=== PATIENT | male | born 1960 | race Caucasian/White ===

== ENCOUNTER → 2018-12-24 | Outpatient (CLI) | payer OTHER | LOC: M WUC 11:55 | PROVIDERS: ATTEND Internal Medicine Gastroenterology | DX: K74.69 Other cirrhosis of liver (principal) ==

== ENCOUNTER → 2019-07-04 | Outpatient (CLI) | payer OTHER ==
[~2019-07-04] MED LIST: GASTROGRAFIN SOLUTION 30ML (Q9963) As Ordered ONE; ISOVUE-370 76% 100ML VIAL (Q9967) As Ordered ONE
--- NOTE | 2019-07-05 04:21 | REP ---
Clinical: Cholecystitis. Technique: Axial contrast enhanced images from the lung bases to the pubic symphysis using oral (per protocol) and 100 ml Isovue 370 intravenous contrast material with precontrast and delayed images of the abdomen as well as coronal and sagittal re-formations. Findings: Large right pleural effusion and partial collapse to the right lower lobe noted. A subtle micronodular contour to the liver suggests cirrhosis along with splenomegaly, mildly prominent lymph nodes in the upper abdomen/jayesh hepatis, and small/moderate amount of ascites primarily along the right paracolic gutter and pelvis. There is a prominent venous plexus noted in the lower abdomen/pelvis which may be related to portosystemic shunting. Pancreas, bilateral adrenal glands, and kidneys are normal. Gallbladder demonstrates cholelithiasis without wall thickening or pericholecystic fluid. Evidence of prior gastric bypass surgery. Small and large bowel without obstruction or acute inflammatory process. Normal terminal ileum and appendix are identified in the right lower quadrant. Pelvis demonstrates collapsed normal bladder and age appropriate prostate/seminal vesicles. Abdominal aorta without aneurysm or dissection. Musculoskeletal structures demonstrate age-related degenerative changes. Impression: 1. Abdominal findings as detailed above suggesting cirrhosis and portal hypertension. 2. Cholelithiasis without evidence for acute cholecystitis. 3. Moderate/large right pleural effusion and partial collapse to the right lower lobe. Electronically Signed by Lee Aquino MD 07/05/2019 04:13 A
== END ==
LOC: M RAD 15:07
PROVIDERS: ATTEND Nurse Practitioner Family
DX: K81.9 Cholecystitis, unspecified (principal)
CPT/HCPCS: 74178; Q9963; Q9967

== ENCOUNTER 2019-07-12 21:33 | Inpatient (IN) | payer OTHER ==
[~2019-07-12] VITALS: Ht 175.3 cm; Wt 86.3 kg
[~2019-07-12 21:33] MED LIST changes: +APIXABAN 5 MG TAB (ELIQUIS) PO SCH; -GASTROGRAFIN SOLUTION 30ML (Q9963) As Ordered ONE; -ISOVUE-370 76% 100ML VIAL (Q9967) As Ordered ONE; +PANTOPRAZOLE 40MG INJ (PROTONIX) (C9113) IV SCH
[2019-07-12] MEDS ORDERED: PANTOPRAZOLE 40MG INJ (PROTONIX) (C9113) IV ONE (22:00)
[2019-07-12] MEDS ORDERED: PROMETHAZINE INJ 25 MG/ML VIAL (J2550) IV ONE (22:00)
[2019-07-12] MEDS ORDERED: MORPHINE 4 MG/ML 1ML VIAL/SYRINGE (J2270) IV ONE (22:00)
[2019-07-12] MEDS ORDERED: ONDANSETRON 4MG/2ML VIAL (J2405) IV ONE (22:00)
[2019-07-12] MEDS ORDERED: NS 1,000 ML IV ONE (22:00)
[2019-07-12] MEDS ORDERED: OMEP-221 PO (22:30)
[2019-07-12] MEDS ORDERED: ATEN25TA PO (22:30)
[2019-07-12] MEDS ORDERED: FURO20TA2 PO (22:30)
[2019-07-12] MEDS ORDERED: SPIR50TA4 PO (22:30)
[2019-07-12] MEDS ORDERED: TRAM50TA2 PO (22:30)
[2019-07-12] MEDS ORDERED: LACT10SO3 PO (22:30)
[2019-07-12] MEDS ORDERED: ELIQ5TAB PO (22:30)
[2019-07-12 22:31] LABS: BASO % 0.8 % (0.0-1.0); EOS # 0.2 10^3/uL (0.0-0.5); EOS % 3.5 % (0.0-3.0); HEMATOCRIT 38.8 % (42.0-52.0); LYMPH # 1.3 10^3/uL (1.5-5.0); LYMPH % 27.7 % (24.0-44.0); MEAN CORPUSCULAR HEMOGLOBIN 30.7 pg (27.0-33.0); MEAN CORPUSCULAR HGB CONC 33.5 g/dl (32.0-36.5); MEAN CORPUSCULAR VOLUME 91.7 fl (80.0-96.0); MONO # 0.1 10^3/uL (0.0-0.8); MONO % 1.9 % (0.0-5.0); NEUTROPHILS # 3.2 10^3/uL (1.5-8.5); NEUTROPHILS % 65.7 % (36.0-66.0); PLATELET COUNT, AUTOMATED 111 10^3/uL (150-450); RED BLOOD COUNT 4.23 10^6/uL (4.30-6.10); WHITE BLOOD COUNT 4.8 10^3/uL (4.0-10.0)
[2019-07-12 23:21] LABS: ALBUMIN 2.6 GM/DL (3.2-5.2); ALT/SGPT 33 U/L (12-78); AMYLASE 429 U/L (25-115); BILIRUBIN,DIRECT 1.4 MG/DL (0.0-0.2); BILIRUBIN,TOTAL 2.4 MG/DL (0.2-1.0); BLOOD UREA NITROGEN 15 MG/DL (7-18); CALCIUM LEVEL 7.9 MG/DL (8.5-10.1); CARBON DIOXIDE LEVEL 20 MEQ/L (21-32); CHLORIDE LEVEL 111 MEQ/L (98-107); CREATININE FOR GFR 0.76 MG/DL (0.70-1.30); GLOMERULAR FILTRATION RATE > 60.0 (>56); GLUCOSE, FASTING 102 MG/DL (70-100); POTASSIUM SERUM 3.8 MEQ/L (3.5-5.1); SODIUM LEVEL 141 MEQ/L (136-145); TOTAL PROTEIN 6.1 GM/DL (6.4-8.2)
[2019-07-12 23:22] LABS: LIPASE 22833 U/L (73-393)
[2019-07-12] MEDS ORDERED: ONDA4TAB6 PO (23:25)
--- NOTE | 2019-07-13 00:01 | REPVR ---
PROCEDURE INFORMATION: Exam: CT Abdomen And Pelvis Without Contrast Exam date and time: 07/12/2019 10:46 PM Age: 58 years old Clinical indication: Abdominal pain; Generalized TECHNIQUE: Imaging protocol: Computed tomography of the abdomen and pelvis without contrast. Radiation optimization: All CT scans at this facility use at least one of these dose optimization techniques: automated exposure control; mA and/or kV adjustment per patient size (includes targeted exams where dose is matched to clinical indication); or iterative reconstruction. COMPARISON: CT ABD PELVIS W/O FOLLOWED BY WITH CONTRAST 07/04/2019 4:48 PM (The report from this study was not available for review at the time of this interpretation.) FINDINGS: Lungs: There is compressive atelectasis in the right lower lobe. Pleural space: There is a moderate to large right pleural effusion, which is similar in size compared to the prior CT on 07/04/2019. Heart: No cardiomegaly. No pericardial effusion. Liver: The liver has a nodular contour, which can be seen with cirrhosis. No liver lesion is seen. No hepatomegaly is noted. Gallbladder and bile ducts: There are gallstones and biliary sludge in the dependent portion of the fundus and body of the distended gallbladder. No gallbladder wall thickening, pericholecystic fluid, or pericholecystic inflammatory changes are identified. No dilation of the intrahepatic or extrahepatic bile ducts is noted. Pancreas: There is fat stranding around the pancreas, which can be seen with acute pancreatitis. No pancreatic mass, cyst, or pseudocyst is noted. Spleen: No splenic lesion is noted. The spleen is enlarged and measures 13.4 cm. Adrenals: There is an 11 mm fat density lesion in the left adrenal gland, which is unchanged compared to the prior CT on 07/04/2019 and compatible with a left adrenal myelolipoma for which follow-up is not necessary. The right adrenal gland is normal. Kidneys and ureters: There is a 14 mm simple cyst in the midpole of the left kidney, which is stable compared to the prior CT on 07/04/2019 and for which follow-up is not necessary. No calculi are seen in the kidneys or ureters. There is no hydronephrosis or hydroureter. Stomach and bowel: Postoperative changes are noted from a Andre-en-Y gastric bypass surgery. There is no evidence for a bowel obstruction, strangulation, diverticulosis, diverticulitis, colitis, pneumatosis intestinalis, intussusception, volvulus, or perforated viscus. Appendix: Normal. No evidence for appendicitis. Intraperitoneal space: There is a small amount of free fluid in the abdomen and a moderate amount of free fluid in the pelvis, which is similar compared to the prior CT on 07/04/2019. No free air. Retroperitoneal space: Unremarkable. No fluid collection. No mass. Vasculature: No abdominal aortic aneurysm. There are mild atherosclerotic calcifications. There is evidence for portal hypertension, with dilation of the main portal vein by 19 mm in diameter and dilation of the splenic vein by 15 mm in diameter. There are numerous mesenteric varices related to a portosystemic collateral pathway from the inferior mesenteric vein to the right external iliac vein. Recanalization of the umbilical vein is noted. Lymph nodes: Normal. No enlarged lymph nodes. Bladder: The partially distended urinary bladder is unremarkable. No stones or masses are seen in the bladder. Reproductive: There is a punctate calcification in the prostate gland. The seminal vesicles are unremarkable. There is a punctate calcification in the right scrotal sac, which represents a scrotolith. Bones/joints: The imaged bony structures are intact. There is no suspicious osteolytic or osteoblastic lesion. There is severe osteoarthritis of the right hip joint and moderate osteoarthritis of the left hip joint, which is similar in appearance compared to the prior CT on 07/04/2019. There are numerous endplate spurs in the lower thoracic spine and lumbar spine. Degenerative changes are present in the lumbar spine. There is ankylosis of the sacroiliac joints. Soft tissues: There is a large indirect right inguinal hernia containing a large amount of fluid and a nondilated loop of ileum, and previously the hernia only contained fluid in the prior CT on 07/04/2019. There is severe bilateral gynecomastia that is similar in appearance compared to the prior CT on 07/04/2019. IMPRESSION: 1. Acute pancreatitis. 2. Cholelithiasis. 3. Large indirect right inguinal hernia containing a large amount of fluid and a loop of ileum, and previously the hernia only contained fluid in the prior CT on 07/04/2019. No bowel obstruction or strangulation. 4. Nodular contour of the liver, which can be seen with cirrhosis. 5. Evidence for portal hypertension, with dilation of the main portal vein and splenic vein, a portosystemic collateral pathway from the inferior mesenteric vein to the right external iliac vein with numerous mesenteric varices, recanalization of the umbilical vein, and splenomegaly, which are similar findings compared to the prior CT on 07/04/2019. 6. Small amount of free fluid in the abdomen and a moderate amount of free fluid in the pelvis, which is similar compared to the prior CT on 07/04/2019. 7. Moderate to large right pleural effusion, which is similar in size compared to the prior CT on 07/04/2019. Electronically signed by: Carlton Mazariegos On 07/13/2019 00:01:10 AM
[2019-07-13] MEDS ORDERED: fentaNYL 100 MCG/2 ML INJECTION (J3010) IV ONE (00:30)
[2019-07-13] MEDS ORDERED: PROMETHAZINE INJ 25 MG/ML VIAL (J2550) IV ONE (00:30)
--- NOTE | 2019-07-13 01:39 | REPVR ---
PROCEDURE INFORMATION: Exam: US Abdomen Limited, Right Upper Quadrant Exam date and time: 07/13/2019 12:52 AM Age: 58 years old Clinical indication: Abdominal pain; Epigastric; Additional info: Gallstones TECHNIQUE: Imaging protocol: Real-time ultrasound of the abdomen with image documentation. Examination was focused on the right upper quadrant. COMPARISON: CT ABD PELVIS W/O CONTRAST 07/12/2019 10:41 PM FINDINGS: Right pleural space: There is a moderate to large right pleural effusion. Liver: The liver is heterogeneous in echotexture and has a nodular contour, which can be seen with cirrhosis. No liver lesion is identified from the images obtained. No hepatomegaly is noted. Gallbladder: There is biliary sludge in the gallbladder. At least one calcified gallstone can be seen in the CT abdomen and pelvis on 07/12/2019. There is thickening of the wall of the gallbladder, which measures 7 mm in thickness. No sonographic Alcaraz's sign was noted by the chief ultrasound technologist. Common bile duct: The common bile duct measures 6 mm in diameter. No stones are seen in the imaged portion of the common bile duct. Pancreas: The pancreas is swollen with thickened echogenic fat around it, indicating inflammatory changes, which are findings compatible with acute pancreatitis. The pancreas was not well visualized secondary to obscuration by gas in the stomach and bowel. Right kidney: The right kidney is normal in appearance and measures 10.9 cm in length. There is no renal cortical thinning. The renal cortical echogenicity is within normal limits. No renal lesion is seen. There is no hydronephrosis. No stones are seen in the renal collecting system. Intraperitoneal space: There is a small amount of free fluid around the liver. IMPRESSION: 1. Cholelithiasis, biliary sludge in the gallbladder, and gallbladder wall thickening, but no sonographic Alcaraz's sign to suggest acute cholecystitis. 2. Acute pancreatitis. 3. Cirrhotic liver. 4. Small amount of free fluid in the abdomen. 5. Moderate to large right pleural effusion. Electronically signed by: Carlton Mazariegos On 07/13/2019 01:38:25 AM
[2019-07-13] MEDS ORDERED: HYDROMORPHONE HCL 0.5 MG/ 0.5 ML SYRINGE (J1170 PER 1) IV PRN (02:15)
[2019-07-13] MEDS ORDERED: ACETAMINOPHEN TAB 650MG DOSE (2X325MG) PO PRN (02:15)
--- NOTE | 2019-07-13 03:10 | HPEPDOC ---
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 Patient reported that he started to experience abdominal pain at 6 PM he noted that he had taken 3 pills of tramadol 50 mg total of 150 mg without any al leviation of his pain. Patient denied any aggravating factors. Patient indicated that his abdominal pain was occurring at the upper portion of his abdomen, radiating to the right/back. . He notes this pain is of 15/10, achy in nature and continuous. He reports that he has experienced nausea and has vomited greater than 10 times while in the emergency room, he shouldnt denies any blood within the vomitus. Patient does report diarrhea. Denies any constipation or dysuria. Patient denies shortness of breath, chest pain or cough but does report a few episodes of palpitations. Denies any fevers but has reported chills. Patient reports that his appetite is poor and has experienced a weight loss; that he attributes to a gastric bypass surgery from 2018 Home Medications Scheduled Apixaban (Eliquis) 5 Mg Tablet, 5 MG PO BID, (Reported) Atenolol (Atenolol) 25 Mg Tablet, 50 MG PO QPM, (Reported) Furosemide (Furosemide) 20 Mg Tablet, 20 MG PO BID, (Reported) Lactulose (Lactulose) 10 Gm/15 Ml Solution, 30 ML PO BID, (Reported) Omeprazole (Omeprazole) 40 Mg Capsule.dr, 40 MG PO BID, (Reported) Spironolactone (Spironolactone) 50 Mg Tablet, 50 MG PO BID, (Reported) Scheduled PRN Ondansetron (Ondansetron Odt) 4 Mg Tab.rapdis, 4 MG PO Q6H PRN for NAUSEA, (Reported) NOT SURE OF DOSE Tramadol HCl (Tramadol HCl) 50 Mg Tablet, 100 MG PO BID PRN for PAIN, (Reported) Allergies Coded Allergies: No Known Allergies (Unverified , 07/12/19) Past Medical History Medical History 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 Review of Systems Other systems 10 point review of systems complete, all negative otherwise stated in HPI Vital Signs - Vitals: BP 117/71, HR 71, RR 16, Sat 98%RA, Temp 97.2F - General: Lying in bed, No acute distress, Speaking in full sentences, AAOx3 - HEENT: NC, AT, PERRLA, EOMI - CVS: RRR, +S1S2 - Lungs: Decreased breath sounds at right lung base, No wheezing / rales / rhonc hi - Abdomen: Soft, Non-distended, tenderness appreciated at epigastrium, no rebound or guarding - Extremities: No lower extremity edema, No calf tenderness - Neuro: No focal motor or sensory deficit - Skin: No visible rashes Laboratory Data Labs 24H Laboratory Tests 2 07/12/19 22:20: Immature Granulocyte % (Auto) 0.4, Neutrophils (%) (Auto) 65.7, Lymphocytes (%) (Auto) 27.7, Monocytes (%) (Auto) 1.9, Eosinophils (%) (Auto) 3.5H, Basophils ( %) (Auto) 0.8, Neutrophils # (Auto) 3.2, Lymphocytes # (Auto) 1.3L, Monocytes # (Auto) 0.1, Eosinophils # (Auto) 0.2, Basophils # (Auto) 0.0, Nucleated Red Blood Cells % (auto) 0.0, Urine Color SYMONE, Urine Appearance CLOUDYH, Urine pH 5.0, Urine Specific Penrose 1.017, Urine Protein NEGATIVE, Urine Glucose (UA) NEGATIVE, Urine Ketones NEGATIVE, Urine Blood NEGATIVE, Urine Nitrite NEGATIVE, Urine Bilirubin NEGATIVE, Urine Urobilinogen 4.0H, Urine Leukocyte Esterase NEGATIVE, Urine WBC (Auto) 5H, Urine RBC (Auto) 7H, Urine Hyaline Casts (Auto) 36, Urine Bacteria (Auto) NEGATIVE, Urine Squamous Epithelial Cells 0, Urine Calcium Oxalate Cryst (Auto) LARGE, Urine Mucus (Auto) LARGE, Urine Sperm (Auto) , Anion Gap 10, Glomerular Filtration Rate > 60.0, Calcium Level 7.9L, Total Bilirubin 2.4H, Direct Bilirubin 1.4H, Aspartate Amino Transf (AST/SGOT) 83H, Alanine Aminotransferase (ALT/SGPT) 33, Alkaline Phosphatase 120H, Total Protein 6.1L, Albumin 2.6L, Albumin/Globulin Ratio 0.74L, Amylase Level 429H, Lipase [id number] 07/13/19 01:01: Lactic Acid Level 1.8 CBC/BMP Laboratory Tests 07/12/19 22:20 Plan / VTE VTE Prophylaxis Ordered?: Yes Plan Plan Abdominal pain - likely 2/2 acute pancreatitis - possibly 2/2 gallstone pancreatitis - Presented to the ER with complaints of abdominal pain associated with nausea and vomiting - Physical reveals epigastric tenderness / remains hemodynamically stable and afebrile - Significant elevation of lipase, no lactic acidosis. No leukocytosis - CT abdomen / pelvis 07/13: 1. Acute pancreatitis. 2. Cholelithiasis. 3. Large indirect right inguinal hernia containing a large amount of fluid and a loop of ileum, and previously the hernia only contained fluid in the prior CT on 07/04/2019. No bowel obstruction or strangulation. 4. Nodular contour of the liver, which can be seen with cirrhosis. 5. Evidence for portal hypertension, with dilation of the main portal vein and splenic vein, a portosystemic collateral pathway from the inferior mesenteric vein to the right external iliac vein with numerous mesenteric varices, recanalization of the umbilical vein, and splenomegaly, which are similar findings compared to the prior CT on 07/04/2019. 6. Small amount of free fluid in the abdomen and a moderate amount of free fluid in the pelvis, which is similar compared to the prior CT on 07/04/2019. 7. Moderate to large right pleural effusion, which is similar in size compared to the prior CT on 07/04/2019. - US abdomen 07/13: 1. Cholelithiasis, biliary sludge in the gallbladder, and gallbladder wall thickening, but no sonographic Alcaraz's sign to suggest acute cholecystitis. 2. Acute pancreatitis. 3. Cirrhotic liver. 4. Small amount of free fluid in the abdomen. 5. Moderate to large right pleural effusion. - Case was discussed with Dr. Lagunas; family educator at [facility]; was advised that an ERCP is not required at this time, however, has reported that he will gladly take the patient on transfer if required - Will check triglycerides levels - Will continue with IV fluid hydration and symptomatic control with Dilaudid and Zofran - Will keep patient NPO Moderate to large right-sided pleural effusion - Currently, patient is not short of breath - Saturating well on room air - Imaging findings noted above - Has reported history of fluid removal via thoracentesis 3 - At this point diuretic therapy will be held and fluids will be instituted because of acute pancreatitis - Patient is at high risk for further propagation of effusions - Will monitor in progressive care unit 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 - Will be evaluated by [facility] for liver transplant - Hx of gallbladder sludge; was advised that he needs to have Ascites - Present on imaging noted above - Will hold diuretics; Furosemide and Spironolactone - Patient is at high risk for further propagation of effusions - Will need to have repeat imaging completed SVT - Currently heart rate remains well-controlled - c/w Atenolol with holding parameters (re: possible thoracentesis / paracentesis) Hx of PE - Patient was reported have a pulmonary embolism on 09/2018 - Will hold Eliquis at this time Gastric ulcers - Will stop omeprazole and start Protonix IV DVT prophylaxis - Will hold Eliquis at this time (re: possible thoracentesis / paracentesis) AMBER CARTAGENA MD Jul 13, 2019 03:10
[2019-07-13] MEDS: atenoloL 25 MG TAB PO SCH ×2 (03:12→20:35)
[2019-07-13] MEDS: LR 1,000 ML IV SCH ×3 (03:15→15:35)
[2019-07-13] MEDS: LACTULOSE 20 GM/30 ML SYRUP UD PO SCH ×3 (07:09→20:35)
[2019-07-13] MEDS: HEPARIN SOD (PORCINE) 5000 UNITS/ML VIAL SQ SCH ×3 (07:09→20:35)
[2019-07-13 07:44] LABS: ALBUMIN 2.4 GM/DL (3.2-5.2); ALT/SGPT 49 U/L (12-78); BILIRUBIN,TOTAL 2.5 MG/DL (0.2-1.0); BLOOD UREA NITROGEN 17 MG/DL (7-18); CALCIUM LEVEL 8.1 MG/DL (8.5-10.1); CARBON DIOXIDE LEVEL 21 MEQ/L (21-32); CHLORIDE LEVEL 110 MEQ/L (98-107); CHOLESTEROL LEVEL 106 MG/DL (<200); CHOLESTEROL RISK RATIO 2.038 (<5); CREATININE FOR GFR 0.89 MG/DL (0.70-1.30); GLOMERULAR FILTRATION RATE > 60.0 (>56); GLUCOSE, FASTING 105 MG/DL (70-100); HDL CHOLESTEROL 52 MG/DL (>40); LDL CHOLESTEROL 44 MG/DL (<100); NON-HDL-C 54 MG/DL; POTASSIUM SERUM 3.8 MEQ/L (3.5-5.1); SODIUM LEVEL 140 MEQ/L (136-145); TRIGLYCERIDES LEVEL 52 MG/DL (<150)
--- NOTE | 2019-07-13 07:51 | REPVR ---
PROCEDURE INFORMATION: Exam: MR Abdomen Without Contrast, MRCP. Exam date and time: 07/13/2019 6:40 AM Age: 58 years old Clinical indication: Abdominal pain; Acute; Prior surgery; Surgery date: 6+ months; Surgery type: Gastric bypass; Patient HX: Best imagews possible attempted 3 times with 3d images, PT states pain and vomiting started 5pm last night; Additional info: Gb sludge mrcp TECHNIQUE: Imaging protocol: MR of the abdomen without contrast. 3D rendering: MIP and/or 3D reconstructed images were created by the technologist. COMPARISON: US Abdomen 07/13/2019 12:[address] ABD PELVIS W/O CONTRAST 07/12/2019 10:41:41 PM FINDINGS: Limitations: The examination is technically limited despite multiple attempts, as noted by the technologist. Pleura: A right pleural effusion is again seen. Liver: The liver is small with a nodular surface consistent with cirrhosis. Gallbladder and bile ducts: The gallbladder is distended. The wall appears slightly thickened diffuse There are dependent stones and sludge in the body and neck of the gallbladder. There is no significant intrahepatic or extrahepatic biliary ductal dilation. Assessment of the common bile duct is limited and small stones or lesions could be missed, but no choledocholithiasis is identified. There is a small amount of fluid around the gallbladder, but it is not isolated to this location. Pancreas: The pancreas appears grossly unremarkable but was not well assessed. No gross pancreatic ductal dilation identified. Spleen: The spleen is mildly enlarged measuring 15.7 x 13.6 cm. Kidneys and ureters: There is an 11 mm cyst in the left midpole and a 10 mm cyst in the right kidney midpole. No follow-up needed. No hydronephrosis. Intraperitoneal space: There is moderate ascites. There is edema of the omentum and the mesentery. IMPRESSION: 1. Limited examination. 2. Distended gallbladder with slight wall thickening, layering stones and sludge and pericholecystic fluid but the fluid is not isolated to this area and may be related to the chronic liver disease. 3. No biliary ductal dilation identified. No choledocholithiasis is seen, but assessment of the nondilated duct is limited and small filling defects could be missed. 4. Cirrhotic liver, splenomegaly, ascites, right pleural effusion and edema within the mesentery and omentum as seen on the prior exams. COMMENT: Consistent with the [employer]'s Incidental Findings Committee Report (J Am Yazmin Radiol 2010): Unless the patient's specific circumstances suggest otherwise, any liver lesion 0.5 cm or less, any cystic kidney lesion less than 1.0 cm, and/or any adrenal lesion 1.0 cm or less not otherwise characterized in this report as possessing suspicious or indeterminate imaging features is/are highly likely to be benign and do not require follow-up imaging or biopsy. Electronically signed by: Desiree Stone On 07/13/2019 07:51:28 AM
[2019-07-13] MEDS ORDERED: METAL LOCK LOOP XX ONE (08:31)
[2019-07-13 09:16] LABS: BILIRUBIN,DIRECT 1.4 MG/DL (0.0-0.2); LIPASE 4495 U/L (73-393)
[2019-07-13] MEDS: PANTOPRAZOLE 40MG INJ (PROTONIX) (C9113) IV SCH ×2 (09:28→20:34)
[2019-07-13] MEDS: cefTRIAXone SOD 1 GM in D5W MINI-BAG PLUS 50 ML IV SCH (09:29)
[2019-07-13 10:15] VITALS: BP 115/71; O2SAT 96
[2019-07-13] MEDS: HYDROMORPHONE HCL 0.5 MG/ 0.5 ML SYRINGE (J1170 PER 1) IV PRN ×3 (10:31→23:24)
[2019-07-13 14:00] VITALS: BP 103/59
--- NOTE | 2019-07-13 18:41 | IPNPDOC ---
Date Seen The patient was seen on 07/13/19. Progress Note SUBJECTIVE: Aron was seen and examined this morning while lying in bed in the emergency department. Patient reports his left upper abdominal and left flank pain radiating to the back is still present and is 8 out of 10. His pain is moderately decreased from presentation yesterday evening. He endorses feeling thirsty and denies having much of an appetite at this time. Patient's last bowel movement was yesterday evening around 9:30 PM. Patient is using a bedside urinal and is producing dark nimesh urine. Patient is NPO at time of exam. Patient denies feeling nauseated at this time and last vomited yesterday evening. Patient denies fever, chills, night sweats, headache, lightheadedness, chest pain or pressure, palpitations, or shortness of breath at this time. OBJECTIVE PHYSICAL EXAMINATION: VITAL SIGNS: Please see below. GENERAL: male lying on his right side in bed at time of exam. He appears to be in some moderate discomfort but does not appear to be in any acute distress. Well-developed and well-nourished. Alert and oriented 3. HEENT: Normocephalic, atraumatic. Anicteric and noninjected sclera. No conjunctival pallor. Neck is supple with no anterior or posterior cervical lymphadenopathy, nor any supraclavicular lymphadenopathy. Trachea is midline. CARDIOVASCULAR: Regular rate and regular rhythm. S1, S2 auscultated. No murmurs appreciated. RESPIRATORY: No wheezes, crackles, or rhonchi appreciated. There is mildly diminished tidal volume with decreased breath sounds in the right lung base. Symmetric chest expansion. Patient is speaking in full sentences and breathing on room air. ABDOMINAL: Soft, nondistended. Diffuse tenderness throughout the abdomen that is most pronounced in the epigastrium and left upper quadrant. Left flank and left CVA tenderness. No guarding or rigidity appreciated. EXTREMITIES: No lower extremity edema. 2+ radial and posterior tibial pulses bilaterally. NEUROLOGICAL: Awake, alert and oriented 3. No focal neurologic deficits appreciated. Spine he appropriately to questions and commands. PSYCHOLOGICAL: Mood and affect appear appropriate LABORATORY DATA, IMAGING STUDIES, MICROBIOLOGY: Please see below. 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 In the ED, extensive imaging (right upper quadrant ultrasound, CT abdomen/pelvis, and abdominal MRI) showed acute pancreatitis, cholelithiasis, biliary sludge in gallbladder, thickened gallbladder wall, cirrhotic liver, indirect right inguinal hernia with large amount of fluid and loop of ileum, moderate to large right pleural effusion, small amount of abdominal and pelvic free fluid, with evidence of portal hypertension. No choledocholithiasis and no biliary ductal dilation was visualized. Initial serum lipase was 23,000, with elevated total and direct bilirubin. Lactated Ringer's were started and IV Rocephin was added morning of 07/13 to cover for possible SBP. Patient's pain improved moderately on 07/13, and clear liquid diet started. #Gallstone pancreatitis -Pain improved from yesterday and clear liquid diet started -IV Dilaudid for pain -IV Rocephin added to empirically cover for possible SBP -Patient has had gallstone pancreatitis in the past and is at significant risk for recurrence until gallbladder is removed. It is likely best to do elective cholecystectomy as outpatient once symptoms have improved. This was explained extensively to patient and he verbally acknowledged understanding it. Patient would like to follow-up with surgeon in [place] whom he's been seeing for elective cholecystectomy workup. 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 #SVT -On remote telemetry -Rate is well controlled -Atenolol ordered with holding parameters #h/o PE -Patient reports PE in September 2018 -Currently on subcutaneous heparin -Asymptomatic at this time from a respiratory standpoint #h/o Gastric Ulcers: IV Protonix #DVT prophylaxis: SC Heparin DISPOSITION: Pending improved pain control and tolerance of diet advancement. VS, I&O, 24H, Fishbone Vital Signs/I&O Vital Signs Date Time Temp Pulse Resp B/P (MAP) Pulse Ox O2 Delivery O2 Flow Rate FiO2 07/13/19 17:34 18 07/13/19 14:00 98.0 64 103/59 (74) 97 Room Air Laboratory Data 24H LABS Laboratory Tests 2 07/12/19 22:20: Immature Granulocyte % (Auto) 0.4, Neutrophils (%) (Auto) 65.7, Lymphocytes (%) (Auto) 27.7, Monocytes (%) (Auto) 1.9, Eosinophils (%) (Auto) 3.5H, Basophils (%) (Auto) 0.8, Neutrophils # (Auto) 3.2, Lymphocytes # (Auto) 1.3L, Monocytes # (Auto) 0.1, Eosinophils # (Auto) 0.2, Basophils # (Auto) 0.0, Nucleated Red Blood Cells % (auto) 0.0, Urine Color NIMESH, Urine Appearance CLOUDYH, Urine pH 5.0, Urine Specific [place] 1.017, Urine Protein NEGATIVE, Urine Glucose (UA) NEGATIVE, Urine Ketones NEGATIVE, Urine Blood NEGATIVE, Urine Nitrite NEGATIVE, Urine Bilirubin NEGATIVE, Urine Urobilinogen 4.0H, Urine Leukocyte Esterase NEGATIVE, Urine WBC (Auto) 5H, Urine RBC (Auto) 7H, Urine Hyaline Casts (Auto) 36, Urine Bacteria (Auto) NEGATIVE, Urine Squamous Epithelial Cells 0, Urine Calcium Oxalate Cryst (Auto) LARGE, Urine Mucus (Auto) LARGE, Urine Sperm (Auto) , Anion Gap 10, Glomerular Filtration Rate > 60.0, Calcium Level 7.9L, Total B ilirubin 2.4H, Direct Bilirubin 1.4H, Aspartate Amino Transf (AST/SGOT) 83H, Alanine Aminotransferase (ALT/SGPT) 33, Alkaline Phosphatase 120H, Total Protein 6.1L, Albumin 2.6L, Albumin/Globulin Ratio 0.74L, Amylase Level 429H, Lipase 08090D 07/13/19 01:01: Lactic Acid Level 1.8 07/13/19 06:55: Anion Gap 9, Glomerular Filtration Rate > 60.0, Calcium Level 8.1L, Total Bilirubin 2.5H, Direct Bilirubin 1.4H, Aspartate Amino Transf (AST/SGOT) 104H, Alanine Aminotransferase (ALT/SGPT) 49, Alkaline Phosphatase 116, Total Protein 6.0L, Albumin 2.4L, Albumin/Globulin Ratio 0.67L, Lipase 4495H, Triglycerides Level 52, Total Cholesterol 106, LDL Cholesterol 44, Non-HDL Cholesterol (LDL + VLDL) 54, Total HDL Cholesterol 52, Cholesterol/HDL Ratio 2.038, Procalcitonin 16.51 CBC/BMP Laboratory Tests 07/12/19 22:20 07/13/19 06:55 DANNY PENA D.O. Jul 13, 2019 18:40
[2019-07-13 22:00] VITALS: BP 100/46; O2SAT 95
[2019-07-13] MEDS: MAG SULF 1GM/100ML (MAG RUN) 1 GM in IV 1 EA IV SCH ×2 (22:50→23:54)
[2019-07-14] MEDS: ONDANSETRON 4MG/2ML VIAL (J2405) IV PRN ×2 (01:05→13:51)
[2019-07-14] MEDS: LR 1,000 ML IV SCH ×2 (05:26→19:25)
[2019-07-14] MEDS: HYDROMORPHONE HCL 0.5 MG/ 0.5 ML SYRINGE (J1170 PER 1) IV PRN ×2 (05:26→13:51)
[2019-07-14] MEDS: LACTULOSE 20 GM/30 ML SYRUP UD PO SCH ×3 (05:33→20:31)
[2019-07-14] MEDS: HEPARIN SOD (PORCINE) 5000 UNITS/ML VIAL SQ SCH (05:34)
[2019-07-14 06:00] VITALS: BP 95/48
[2019-07-14 06:22] LABS: BASO # 0.1 10^3/uL (0.0-0.2); BASO % 0.9 % (0.0-1.0); EOS # 0.1 10^3/uL (0.0-0.5); EOS % 2.6 % (0.0-3.0); HEMATOCRIT 29.1 % (42.0-52.0); MEAN CORPUSCULAR HEMOGLOBIN 31.8 pg (27.0-33.0); MEAN CORPUSCULAR HGB CONC 34.4 g/dl (32.0-36.5); MEAN CORPUSCULAR VOLUME 92.7 fl (80.0-96.0); MONO # 0.6 10^3/uL (0.0-0.8); MONO % 10.6 % (0.0-5.0); NEUTROPHILS # 3.7 10^3/uL (1.5-8.5); NEUTROPHILS % 67.5 % (36.0-66.0); RED BLOOD COUNT 3.14 10^6/uL (4.30-6.10); WHITE BLOOD COUNT 5.5 10^3/uL (4.0-10.0)
[2019-07-14 06:46] LABS: ALBUMIN 1.9 GM/DL (3.2-5.2); ALT/SGPT 30 U/L (12-78); BILIRUBIN,TOTAL 1.3 MG/DL (0.2-1.0); BLOOD UREA NITROGEN 17 MG/DL (7-18); CALCIUM LEVEL 7.3 MG/DL (8.5-10.1); CARBON DIOXIDE LEVEL 24 MEQ/L (21-32); CHLORIDE LEVEL 111 MEQ/L (98-107); CREATININE FOR GFR 0.61 MG/DL (0.70-1.30); GLOMERULAR FILTRATION RATE > 60.0 (>56); GLUCOSE, FASTING 71 MG/DL (70-100); LIPASE 1414 U/L (73-393); MAGNESIUM LEVEL 2.1 MG/DL (1.8-2.4); POTASSIUM SERUM 3.5 MEQ/L (3.5-5.1); SODIUM LEVEL 140 MEQ/L (136-145); TOTAL PROTEIN 4.9 GM/DL (6.4-8.2)
[2019-07-14 07:01] LABS: PLATELET COUNT, AUTOMATED 62 10^3/uL (150-450)
[2019-07-14] MEDS: cefTRIAXone SOD 1 GM in D5W MINI-BAG PLUS 50 ML IV SCH (09:32)
[2019-07-14] MEDS: PANTOPRAZOLE 40MG INJ (PROTONIX) (C9113) IV SCH (09:32)
[2019-07-14] MEDS ORDERED: IBUPROFEN 600 MG TAB PO PRN (13:45)
[2019-07-14 14:00] VITALS: BP 98/56
[2019-07-14] MEDS ORDERED: ONDANSETRON 4 MG TAB (S0181) PO PRN (14:00)
--- NOTE | 2019-07-14 15:21 | IPNPDOC ---
Text Note Date of Service The patient was seen on 07/14/19. NOTE TIME OF SERVICE 9:20 AM Mr. 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 SUBJECTIVE: The patient tolerated clear liquids for breakfast but continues to have nausea and 4 out of 10 abdominal pain after eating. He reports having history of anemia and reports that he was told this is because he doesn't eat enough protein. He was also aware of his history of thrombocytopenia and reports that he was told was due to his liver cirrhosis. OBJECTIVE: Temperature 97.1, pulse 58, respiratory rate 16, blood pressure 98/56, pulse oximetry 97% on room air GEN: well-nourished / well developed/ NAD HEENT: NCAT / lips acyanotic /mucus membranes moist and pink CVS: RRR/NMRG LUNGS: lungs are clear to auscultation bilaterally on room air MSK/EXTREMITIES: range of motion intact in all 4 extremities NEURO: CN 2-12 are grossly intact / speech is not dysarthric PSYCH: alert and oriented to person place and time/ able to understand and follow all commands WBC 5.5, hemoglobin 10, platelets 62. Sodium 140, potassium 3.5, chloride 111, carbon dioxide 24, BUN 17, creatinine 0.61, GFR 60, glucose 71, total bilirubin 1.3, AST 55, ALT 30, alkaline phosphatase 79 ASSESSMENT & PLAN: 1. Recurrent gallstone pancreatitis.-Improving The patient continues to have abdominal pain and nausea after eating a regular diet The diagnosis was made based on the presence of lipase more than 3 times upper limit of normal and abdominal pain and CT scan findings. Reports from CT of the abdomen and MRI of the abdomen reviewed. Plan: Continue with IV fluids/advance diet as tolerated/switch from IV to by mouth, Zofran/continue with IV Dilaudid 2. Bicytopenia The patient reports that anemia is due to not eating enough protein. He reports a thrombocytopenia is due to liver cirrhosis The patient is aware of both of these diagnosis and reports recently having a colonoscopy done by Dr.Nizan his HORN at [facility] Plan: Stop heparin follow-up CBC in the morning / monitor for bleeding / Because he has a history of bariatric surgery he is at risk of anemia 2/2 malnutrition therefore we will follow-up iron studies, B12, zinc and folate & encourage him to f/u his Bariatric Surgeon on an out pt basis 3. 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 History of PE Elquis was held on admission. He is DVT prophylaxis dose rather than treatment dose heparin Plan: DC heparin because of drop in platelets, follow-up stool occult to rule out GI bleed prior to resuming enoxaparin 5. History of gastric ulcers. Is unclear whether he is having an active lower GI bleed Plan: Switch from IV to by mouth PPI/ follow-up stool occult DVT PX SCDs because of acute anemia DISPO pending clinical course, if the patient does not improve within the next day so we may transfer him to [facility] where his primary grounding engineer works Pratibha MEYERS, I+O VSPratibha I+O Laboratory Tests 07/14/19 05:33 07/14/19 08:28 Vital Signs Date Time Temp Pulse Resp B/P (MAP) Pulse Ox O2 Delivery O2 Flow Rate FiO2 07/14/19 14:01 16 07/14/19 14:00 97.1 58 98/56 (70) 97 Room Air I&O- Last 24 Hours up to 6 AM 07/14/19 06:00 Intake Total 3795 ml Output Total 475 ml Balance 3320 ml SAUD BLANK MD Jul 14, 2019 15:21
[2019-07-14] MEDS: PANTOPRAZOLE 40MG TAB (PROTONIX) PO SCH (20:31)
[2019-07-14 20:35] VITALS: BP 120/62
[2019-07-14] MEDS: atenoloL 25 MG TAB PO SCH (20:35)
[2019-07-14] MEDS ORDERED: APIXABAN 2.5 MG TAB (ELIQUIS) PO SCH (21:00)
[2019-07-14 22:00] VITALS: BP 119/69
[2019-07-15] MEDS: HYDROMORPHONE HCL 0.5 MG/ 0.5 ML SYRINGE (J1170 PER 1) IV PRN (03:34)
[2019-07-15] MEDS: LACTULOSE 20 GM/30 ML SYRUP UD PO SCH ×2 (05:12→13:23)
[2019-07-15] MEDS: LR 1,000 ML IV SCH (05:12)
[2019-07-15 05:53] LABS: BASO % 0.9 % (0.0-1.0); EOS # 0.2 10^3/uL (0.0-0.5); EOS % 4.6 % (0.0-3.0); HEMATOCRIT 32.6 % (42.0-52.0); HEMOGLOBIN 10.7 g/dl (13.5-17.5); LYMPH # 0.9 10^3/uL (1.5-5.0); LYMPH % 25.8 % (24.0-44.0); MEAN CORPUSCULAR HEMOGLOBIN 30.8 pg (27.0-33.0); MEAN CORPUSCULAR HGB CONC 32.8 g/dl (32.0-36.5); MEAN CORPUSCULAR VOLUME 93.9 fl (80.0-96.0); MONO # 0.4 10^3/uL (0.0-0.8); MONO % 11.2 % (0.0-5.0); NEUTROPHILS # 1.9 10^3/uL (1.5-8.5); NEUTROPHILS % 57.2 % (36.0-66.0); RED BLOOD COUNT 3.47 10^6/uL (4.30-6.10); WHITE BLOOD COUNT 3.3 10^3/uL (4.0-10.0)
[2019-07-15 05:55] LABS: PLATELET COUNT, AUTOMATED 61 10^3/uL (150-450)
[2019-07-15 06:00] VITALS: BP 90/45
[2019-07-15 06:31] LABS: ALBUMIN 2.1 GM/DL (3.2-5.2); ALT/SGPT 27 U/L (12-78); BILIRUBIN,TOTAL 0.8 MG/DL (0.2-1.0); BLOOD UREA NITROGEN 13 MG/DL (7-18); CALCIUM LEVEL 7.6 MG/DL (8.5-10.1); CARBON DIOXIDE LEVEL 27 MEQ/L (21-32); CHLORIDE LEVEL 113 MEQ/L (98-107); CREATININE FOR GFR 0.57 MG/DL (0.70-1.30); FERRITIN 696 NG/ML (26-388); GLOMERULAR FILTRATION RATE > 60.0 (>56); GLUCOSE, FASTING 72 MG/DL (70-100); IRON (FE) 50 UG/DL (65-175); MAGNESIUM LEVEL 1.9 MG/DL (1.8-2.4); PERCENT SATURATION 38.8 % (19.7-50.0); POTASSIUM SERUM 4.2 MEQ/L (3.5-5.1); SODIUM LEVEL 143 MEQ/L (136-145); TOTAL IRON BINDING CAPACITY 129 UG/DL (250-450)
[2019-07-15 08:24] VITALS: BP 106/60
[2019-07-15] MEDS: cefTRIAXone SOD 1 GM in D5W MINI-BAG PLUS 50 ML IV SCH (09:07)
[2019-07-15] MEDS: PANTOPRAZOLE 40MG TAB (PROTONIX) PO SCH (09:08)
[2019-07-15 09:20] VITALS: BP 106/60
[2019-07-15] MEDS ORDERED: traMADol 50 MG TAB PO SCH (10:15)
[2019-07-15 10:45] LABS: FOLATE 7.7 NG/ML; VITAMIN B12 LEVEL 905 PG/ML
[2019-07-15 14:03] VITALS: BP 106/61
[2019-07-15 14:05] VITALS: BP 106/61
[2019-07-15] MEDS ORDERED: ACET1TAB55 PO (15:03)
[2019-07-15] MEDS ORDERED: TRAM1CAP15 PO (15:03)
--- NOTE | 2019-07-15 17:41 | DS.PDOC ---
Discharge Summary General Date of Admission Jul 13, 2019 at 02:06 Date of Discharge 07/15/2019 Attending Physician: SAUD BLANK MD Discharge Summary PROCEDURES PERFORMED DURING STAY: None ADMITTING DIAGNOSES: Abdominal pain secondary to acute gallstone pancreatitis Right-sided pleural effusion Cirrhosis secondary to SWIFT Ascites History pulmonary embolism SVT History of gastric ulcers DISCHARGE DIAGNOSES: Recurrent gallstone pancreatitis Bicytopenia (anemia, thrombocytopenia) Liver cirrhosis secondary to Swift complicated by bicytopenia and ascites History of pulmonary embolism History of gastric ulcers COMPLICATIONS/CHIEF COMPLAINT: Gallstone Pancreatitis. HISTORY OF PRESENT ILLNESS & HOSPITAL COURSE: Aron is a 58-year-old male with past medical history of liver cirrhosis secondary to SWIFT, history of ascites and gallbladder sludge, history of pulmonary embolus (on Eliquis), history of recurrent right-sided pleural effusions, SVT, and gastric ulcers who presented the emergency department with the chief complaint of severely intense abdominal pain. He began to experience the pain late in the afternoon on the day he presented. He has home tramadol prescription for Zyrtec. Current gallstone parotitis and associated abdominal pain. He tried 3 of the tramadol pills, 50 mg each (total of 150 mg), but these did not alleviate his pain. The pain was mostly centered to the upper portion of his abdomen and radiated to his back. He described the pain as being 15/10, continuous and very achy. No specific factors seem to aggravate the pain. He had accompanying symptoms of nausea and vomiting. He reports vomiting more than 10 times while in the emergency department, but denied any hematemesis, or coffee ground emesis. He denied any diarrhea, constipation or dysuria. He also denied chest pain, chest pressure, cough, shortness of breath, but did endorse a few intermittent episodes of palpitations. Patient denied any fever or chills. He states that his appetite is poor and he is experienced a recent weight loss but did undergo gastric bypass surgery in 2018. In the emergency department, extensive imaging (right upper quadrant ultrasound, CT abdomen/pelvis, and abdominal MRI." He showed acute pancreatitis, cholelithiasis, but biliary sludge in gallbladder, thickened gallbladder wall, cirrhotic liver, indirect right inguinal hernia with large amount of fluid and loop of ileum, moderate to large right pleural effusion, small amount of abdominal pelvic free fluid, with evidence of portal hypertension. No choledocholithiasis and no biliary duct dilation was visualized. Initial serum lipase is 23,000, with elevated total and direct bilirubin. Lactated Ringer's were started to assist in fluid replenishment in the context of abdominal edema, ascites, and third spacing. IV Rocephin was added on the morning of 07/13 and comfortable. Possible SBP. Patient's pain improved moderately and 07/13, and clear liquid diet was started. Patient tolerated clear liquid diet well and subsequently advanced to a soft diet. His abdominal pain and discomfort decrease any stay this hospital stay. On the morning of 07/15, patient's IV medications were stopped and he was switched to oral pain medications. He tolerated both breakfast and lunch on 07/15 while taking the oral pain medications. He had no associated pain or discomfort while eating on 07/15 and was deemed medically optimized for discharge. DISCHARGE MEDICATIONS: Please see below. ALLERGIES: Please see below. PHYSICAL EXAMINATION ON DISCHARGE: VITAL SIGNS: Please see below. GENERAL: Pleasant male lying comfortably in bed. He does not appear to be in the discomfort experienced on previous days, and does not appear to be in any acute distress. Well-developed and well-nourished. Alert and oriented 3. HEENT: Normocephalic, atraumatic. Anicteric and noninjected sclera. No conjunct ival pallor. Neck is supple with no anterior or posterior cervical lymphadenopathy, nor any supraclavicular lymphadenopathy. Trachea is midline. CARDIOVASCULAR: Regular rate and regular rhythm. S1, S2 auscultated. No murmurs appreciated. RESPIRATORY: No wheezes, crackles, or rhonchi appreciated. There is mildly diminished tidal volume with mildly decreased breath sounds in the right lung base. Symmetric chest expansion. Patient is speaking in full sentences and breathing on room air. ABDOMINAL: Soft, nondistended. Very mild abdominal tenderness of the left upper quadrant that is significantly reduced from previous days. No guarding or rigidity appreciated., Normoactive bowel sounds EXTREMITIES: No lower extremity edema. 2+ radial and posterior tibial pulses bilaterally. NEUROLOGICAL: Awake, alert and oriented 3. No focal neurologic deficits appreciated. Spine he appropriately to questions and commands. PSYCHOLOGICAL: Mood and affect appear appropriate LABORATORY DATA: Please see below. IMAGING: CT abdomen/pelvis without contrast, 07/12/19: 1. Acute pancreatitis. 2. Cholelithiasis. 3. Large indirect right inguinal hernia containing a large amount of fluid and a loop of ileum, and previously the hernia only contained fluid in the prior CT on 07/04/2019. No bowel obstruction or strangulation. 4. Nodular contour of the liver, which can be seen with cirrhosis. 5. Evidence for portal hypertension, with dilation of the main portal vein and splenic vein, a portosystemic collateral pathway from the inferior mesenteric vein to the right external iliac vein with numerous mesenteric varices, recanalization of the umbilical vein, and splenomegaly, which are similar findings compared to the prior CT on 07/04/2019. 6. Small amount of free fluid in the abdomen and a moderate amount of free fluid in the pelvis, which is similar compared to the prior CT on 07/04/2019. 7. Moderate to large right pleural effusion, which is similar in size compared to the prior CT on 07/04/2019. Abdomen ultrasound right upper quadrant (limited), 07/13/19: 1. Cholelithiasis, biliary sludge in the gallbladder, and gallbladder wall thickening, but no sonographic Alcaraz's sign to suggest acute cholecystitis. 2. Acute pancreatitis. 3. Cirrhotic liver. 4. Small amount of free fluid in the abdomen. 5. Moderate to large right pleural effusion. MRI abdomen without contrast, 07/13/19: 1. Limited examination. 2. Distended gallbladder with slight wall thickening, layering stones and sludge and pericholecystic fluid but the fluid is not isolated to this area and may be related to the chronic liver disease. 3. No biliary ductal dilation identified. No choledocholithiasis is seen, but assessment of the nondilated duct is limited and small filling defects could be missed. 4. Cirrhotic liver, splenomegaly, ascites, right pleural effusion and edema within the mesentery and omentum as seen on the prior exams. PROGNOSIS: Good ACTIVITY: As tolerated DIET: Avoid fatty and fried foods. Smaller portions that are high in protein, lean meats, fruits and vegetables. DISPOSITION: 01 Home, Self-Care. DISCHARGE INSTRUCTIONS & ITEMS TO FOLLOWUP ON ON OUTPATIENT: -Patient is to f/u with his PCP in [place], [place] , Dr. Bailee Leyva, in 7-10 days. -Patient is to f/u with process development engineer in [place], [place], Dr. Yin of [facility], in 1-2 weeks. -Patient is to f/u with Dr. Chen (Chief of Hepatology) and Dr. Theodore (solid Organ Transplant) at [facility] in [place], [place] in 1-2 weeks. -Patient is to continue with regularly scheduled f/u appts with his gastric bypass surgeon at [facility] in [place], [place], Dr. Maldonado. -Patient is to maintain light, smaller-portioned diet that avoids fried/fatty foods. -Patient understands that an elective cholecystectomy is definitive treatment to remove the risk of recurrent gallstone pancreatitis, and he should pursue this as outpatient. -Patient is to take newly prescribed discharged pain medications (Tramadol and Acetaminophen) as instructed for pain, specifically abdominal pain. -Should patient's symptoms acutely worsen, or he should experience an acute medical emergency of any kind, he is to seek immediate medical care. DISCHARGE CONDITION: Stable TIME SPENT ON DISCHARGE: Total time spent on discharge including coordination of care, review of chart documentation, and actual patient contact was greater than 35 minutes. Vital Signs/I&Os Vital Signs Date Time Temp Pulse Resp B/P (MAP) Pulse Ox O2 Delivery O2 Flow Rate FiO2 07/15/19 14:05 106/61 07/15/19 14:03 99.3 57 18 97 Room Air I&O- Last 24 Hours up to 6 AM 07/15/19 06:00 Intake Total 3210 ml Output Total 1675 ml Balance 1535 ml Laboratory Data Labs 24H Laboratory Tests 2 07/15/19 05:11: Immature Granulocyte % (Auto) 0.3, Neutrophils (%) (Auto) 57.2, Lymphocytes (%) (Auto) 25.8, Monocytes (%) (Auto) 11.2H, Eosinophils (%) (Auto) 4.6H, Basophils (%) (Auto) 0.9, Neutrophils # (Auto) 1.9, Lymphocytes # (Auto) 0.9L, Monocytes # (Auto) 0.4, Eosinophils # (Auto) 0.2, Basophils # (Auto) 0.0, Nucleated Red Blood Cells % (auto) 0.0, Anion Gap 3L, Glomerular Filtration Rate > 60.0, Calcium Level 7.6L, Magnesium Level 1.9, Iron Level 50L, Total Iron Binding Capacity 129L, Transferrin % Saturation 38.8, Ferritin 696H, Total Bilirubin 0.8 , Aspartate Amino Transf (AST/SGOT) 46H, Alanine Aminotransferase (ALT/SGPT) 27, Alkaline Phosphatase 86, Total Protein 5.0L, Albumin 2.1L, Albumin/Globulin Ratio 0.72L, Vitamin B12 Level 905, Folate 7.7 CBC/BMP Laboratory Tests 07/15/19 05:11 Microbiology Microbiology 07/14/19 Stool Occult Blood (TALIB) - Final, Complete Discharge Medications Scheduled Apixaban (Eliquis) 5 Mg Tablet, 5 MG PO BID, (Reported) Atenolol (Atenolol) 25 Mg Tablet, 50 MG PO QPM, (Reported) Furosemide (Furosemide) 20 Mg Tablet, 20 MG PO BID, (Reported) Lactulose (Lactulose) 10 Gm/15 Ml Solution, 30 ML PO BID, (Reported) Omeprazole (Omeprazole) 40 Mg Capsule.dr, 40 MG PO BID, (Reported) Spironolactone (Spironolactone) 50 Mg Tablet, 50 MG PO BID, (Reported) Tramadol Hcl (Tramadol HCl ER) 100 Mg Cpbp.25.75, 150 MG PO BID Scheduled PRN Acetaminophen (Acetaminophen) 325 Mg Tablet, 650 MG PO Q4H PRN for PAIN OR FEVER Ondansetron (Ondansetron Odt) 4 Mg Tab.rapdis, 4 MG PO Q6H PRN for NAUSEA, (Reported) NOT SURE OF DOSE Allergies Coded Allergies: No Known Allergies (Unverified , 07/12/19) GME ATTESTATION GME ATTESTATION My faculty preceptor for this patient encounter was physically present during the encounter and was fully available. All aspects of the patient interview, examination, medical decision making process, and medical care plan development were reviewed and approved by the faculty preceptor. The faculty preceptor is aware and concurs with the plan as stated in the body of this note and will attest to such by his/her cosignature. ATTENDING NOTE I examined Mr. Fuller at 8:45 PM, and agree with Dr. Valente 's note as documented DANNY VALENTE D.O. Jul 15, 2019 17:41 SAUD BLANK MD Jul 15, 2019 19:13
== END 2019-07-15 16:35 | disposition home or self-care (01) | DRG 282 ==
LOC: M ED 21:33 → M ED INP 07-13 02:06 → ENRESERV 07-13 09:55 → M MSPAV 07-13 10:12
PROVIDERS: ADMIT Internal Medicine; ATTEND Internal Medicine
DX: K85.10 Biliary acute pancreatitis without necrosis or infection (principal); I47.2 Ventricular tachycardia; J90 Pleural effusion, not elsewhere classified; R18.8 Other ascites; D69.59 Other secondary thrombocytopenia; K75.81 Nonalcoholic steatohepatitis (NASH); K74.60 Unspecified cirrhosis of liver; K80.20 Calculus of gallbladder without cholecystitis without obstruction; K40.90 Unilateral inguinal hernia, without obstruction or gangrene, not specified as recurrent; D64.9 Anemia, unspecified; K28.9 Gastrojejunal ulcer, unspecified as acute or chronic, without hemorrhage or perforation; Z86.711 Personal history of pulmonary embolism; Z98.84 Bariatric surgery status; Z79.01 Long term (current) use of anticoagulants; Z79.899 Other long term (current) drug therapy

== ENCOUNTER → 2019-09-24 | Outpatient (CLI) | payer OTHER ==
[~2019-09-24] MED LIST changes: +ACET1TAB55 PO; -APIXABAN 5 MG TAB (ELIQUIS) PO SCH; +ATEN25TA PO; +ELIQ5TAB PO; +FURO20TA2 PO; +LACT10SO3 PO; +OMEP-221 PO; +ONDA4TAB6 PO; -PANTOPRAZOLE 40MG INJ (PROTONIX) (C9113) IV SCH; +SPIR50TA4 PO; +TRAM1CAP15 PO; +TRAM50TA2 PO
[2019-09-24 10:36] LABS: BASO # 0.1 10^3/uL (0.0-0.2); BASO % 1.5 % (0.0-1.0); EOS # 0.2 10^3/uL (0.0-0.5); HEMATOCRIT 38.6 % (42.0-52.0); HEMOGLOBIN 13.9 g/dl (13.5-17.5); LYMPH # 1.5 10^3/uL (1.5-5.0); LYMPH % 38.1 % (24.0-44.0); MEAN CORPUSCULAR HEMOGLOBIN 32.1 pg (27.0-33.0); MEAN CORPUSCULAR VOLUME 89.1 fl (80.0-96.0); MONO # 0.5 10^3/uL (0.0-0.8); MONO % 12.4 % (0.0-5.0); NEUTROPHILS # 1.7 10^3/uL (1.5-8.5); NEUTROPHILS % 43.7 % (36.0-66.0); PLATELET COUNT, AUTOMATED 133 10^3/uL (150-450); RED BLOOD COUNT 4.33 10^6/uL (4.30-6.10)
[2019-09-24 11:13] LABS: ALBUMIN 2.9 GM/DL (3.2-5.2); ALT/SGPT 18 U/L (12-78); AMYLASE 45 U/L (25-115); BILIRUBIN,TOTAL 1.6 MG/DL (0.2-1.0); BLOOD UREA NITROGEN 22 MG/DL (7-18); CALCIUM LEVEL 8.3 MG/DL (8.5-10.1); CARBON DIOXIDE LEVEL 26 MEQ/L (21-32); CHLORIDE LEVEL 102 MEQ/L (98-107); CREATININE FOR GFR 1.41 MG/DL (0.70-1.30); FERRITIN 942 NG/ML (26-388); GLUCOSE, FASTING 184 MG/DL (70-100); IRON (FE) 146 UG/DL (65-175); LIPASE 392 U/L (73-393); PERCENT SATURATION 76.4 % (19.7-50.0); POTASSIUM SERUM 3.5 MEQ/L (3.5-5.1); SODIUM LEVEL 139 MEQ/L (136-145); THYROID STIMULATING HORMONE 0.998 uIU/ML (0.358-3.740); TOTAL IRON BINDING CAPACITY 191 UG/DL (250-450); TOTAL PROTEIN 6.9 GM/DL (6.4-8.2)
[2019-09-24 11:15] LABS: VITAMIN B12 LEVEL > 2000 PG/ML (247-911)
== END ==
LOC: M WUC 08:52
PROVIDERS: ATTEND Family Medicine
DX: R18.8 Other ascites (principal); K80.10 Calculus of gallbladder with chronic cholecystitis without obstruction; K74.60 Unspecified cirrhosis of liver; D69.1 Qualitative platelet defects; I47.1 Supraventricular tachycardia

== ENCOUNTER → 2019-09-24 | Outpatient (CLI) | payer OTHER ==
[2019-09-24 10:36] LABS: HEMATOCRIT 38.7 % (42.0-52.0); HEMOGLOBIN 13.6 g/dl (13.5-17.5); MEAN CORPUSCULAR HEMOGLOBIN 31.3 pg (27.0-33.0); MEAN CORPUSCULAR HGB CONC 35.1 g/dl (32.0-36.5); MEAN CORPUSCULAR VOLUME 89.2 fl (80.0-96.0); PLATELET COUNT, AUTOMATED 123 10^3/uL (150-450); RED BLOOD COUNT 4.34 10^6/uL (4.30-6.10); WHITE BLOOD COUNT 3.9 10^3/uL (4.0-10.0)
[2019-09-24 10:47] LABS: INR 1.78; PROTHROMBIN TIME 20.5 SECONDS (11.8-14.0)
[2019-09-24 11:06] LABS: ALBUMIN 3.1 GM/DL (3.2-5.2); BILIRUBIN,TOTAL 1.7 MG/DL (0.2-1.0); CALCIUM LEVEL 8.7 MG/DL (8.5-10.1); CREATININE FOR GFR 1.42 MG/DL (0.70-1.30); GLOMERULAR FILTRATION RATE 54.5 (>56); POTASSIUM SERUM 3.4 MEQ/L (3.5-5.1); TOTAL PROTEIN 6.8 GM/DL (6.4-8.2)
== END ==
LOC: M WUC 08:58
PROVIDERS: ATTEND Nurse Practitioner
DX: K74.60 Unspecified cirrhosis of liver (principal)

== ENCOUNTER → 2019-09-28 | Outpatient (CLI) | payer OTHER ==
[2019-09-28 14:03] LABS: HEMATOCRIT 39.4 % (42.0-52.0); HEMOGLOBIN 13.7 g/dl (13.5-17.5); MEAN CORPUSCULAR HEMOGLOBIN 31.4 pg (27.0-33.0); MEAN CORPUSCULAR HGB CONC 34.8 g/dl (32.0-36.5); MEAN CORPUSCULAR VOLUME 90.2 fl (80.0-96.0); RED BLOOD COUNT 4.37 10^6/uL (4.30-6.10)
[2019-09-28 14:08] LABS: ALBUMIN 3.1 GM/DL (3.2-5.2); ALT/SGPT 17 U/L (12-78); AMYLASE 48 U/L (25-115); BILIRUBIN,DIRECT 1.1 MG/DL (0.0-0.2); BILIRUBIN,TOTAL 2.1 MG/DL (0.2-1.0); BLOOD UREA NITROGEN 18 MG/DL (7-18); CALCIUM LEVEL 8.6 MG/DL (8.5-10.1); CARBON DIOXIDE LEVEL 28 MEQ/L (21-32); CHLORIDE LEVEL 103 MEQ/L (98-107); CREATININE FOR GFR 0.98 MG/DL (0.70-1.30); GLOMERULAR FILTRATION RATE > 60.0 (>56); GLUCOSE, FASTING 139 MG/DL (70-100); LIPASE 364 U/L (73-393); POTASSIUM SERUM 3.6 MEQ/L (3.5-5.1); SODIUM LEVEL 137 MEQ/L (136-145); TOTAL PROTEIN 6.8 GM/DL (6.4-8.2)
[2019-09-28 14:12] LABS: INR 1.68; PLATELET COUNT, AUTOMATED 91 10^3/uL (150-450); PROTHROMBIN TIME 19.5 SECONDS (11.8-14.0)
== END ==
LOC: M WUC 08:11
PROVIDERS: ATTEND Nurse Practitioner
DX: K74.60 Unspecified cirrhosis of liver (principal); K85.90 Acute pancreatitis without necrosis or infection, unspecified

== ENCOUNTER → 2019-10-21 | Outpatient (CLI) | payer OTHER ==
[2019-10-21 17:31] LABS: HEMATOCRIT 36.4 % (42.0-52.0); MEAN CORPUSCULAR HEMOGLOBIN 31.6 pg (27.0-33.0); MEAN CORPUSCULAR VOLUME 95.8 fl (80.0-96.0); PLATELET COUNT, AUTOMATED 105 10^3/uL (150-450); WHITE BLOOD COUNT 4.1 10^3/uL (4.0-10.0)
[2019-10-21 17:32] LABS: ALBUMIN 2.5 GM/DL (3.2-5.2); ALT/SGPT 22 U/L (12-78); BLOOD UREA NITROGEN 16 MG/DL (7-18); CALCIUM LEVEL 8.1 MG/DL (8.5-10.1); CARBON DIOXIDE LEVEL 27 MEQ/L (21-32); CHLORIDE LEVEL 110 MEQ/L (98-107); CREATININE FOR GFR 0.81 MG/DL (0.70-1.30); GLOMERULAR FILTRATION RATE > 60.0 (>56); GLUCOSE, FASTING 80 MG/DL (70-100); POTASSIUM SERUM 4.2 MEQ/L (3.5-5.1); SODIUM LEVEL 141 MEQ/L (136-145); TOTAL PROTEIN 5.7 GM/DL (6.4-8.2)
[2019-10-21 17:40] LABS: INR 1.52
== END ==
LOC: M WUC 12:39
PROVIDERS: ATTEND Nurse Practitioner
DX: K74.60 Unspecified cirrhosis of liver (principal)

== ENCOUNTER → 2019-10-29 | Outpatient (CLI) | payer OTHER ==
[2019-10-29 16:10] LABS: HEMATOCRIT 35.8 % (42.0-52.0); HEMOGLOBIN 12.2 g/dl (13.5-17.5); MEAN CORPUSCULAR HEMOGLOBIN 32.6 pg (27.0-33.0); MEAN CORPUSCULAR HGB CONC 34.1 g/dl (32.0-36.5); MEAN CORPUSCULAR VOLUME 95.7 fl (80.0-96.0); PLATELET COUNT, AUTOMATED 116 10^3/uL (150-450); RED BLOOD COUNT 3.74 10^6/uL (4.30-6.10); WHITE BLOOD COUNT 4.5 10^3/uL (4.0-10.0)
[2019-10-29 16:15] LABS: ALBUMIN 2.6 GM/DL (3.2-5.2); ALT/SGPT 19 U/L (12-78); BLOOD UREA NITROGEN 13 MG/DL (7-18); CALCIUM LEVEL 8.2 MG/DL (8.5-10.1); CARBON DIOXIDE LEVEL 25 MEQ/L (21-32); CHLORIDE LEVEL 106 MEQ/L (98-107); CREATININE FOR GFR 0.75 MG/DL (0.70-1.30); GLOMERULAR FILTRATION RATE > 60.0 (>56); GLUCOSE, FASTING 81 MG/DL (70-100); POTASSIUM SERUM 4.5 MEQ/L (3.5-5.1); SODIUM LEVEL 138 MEQ/L (136-145); TOTAL PROTEIN 5.7 GM/DL (6.4-8.2)
[2019-10-29 16:21] LABS: INR 1.48; PROTHROMBIN TIME 17.6 SECONDS (11.8-14.0)
== END ==
LOC: M WUC 11:27
PROVIDERS: ATTEND Nurse Practitioner
DX: K74.60 Unspecified cirrhosis of liver (principal)

== ENCOUNTER 2019-11-20 04:25 | Inpatient (IN) | payer OTHER ==
[~2019-11-20] VITALS: Ht 172.7 cm; Wt 94.3 kg
[2019-11-20] MEDS ORDERED: ONDANSETRON 4MG/2ML VIAL IV ONE (05:15)
[2019-11-20] MEDS ORDERED: MORPHINE 4 MG/ML 1ML VIAL/SYRINGE (J2270) IV ONE (05:15)
[2019-11-20] MEDS ORDERED: NS 500 ML IV ONE (05:15)
[2019-11-20 05:36] LABS: HEMATOCRIT 37.2 % (42.0-52.0); HEMOGLOBIN 12.4 g/dl (13.5-17.5); MEAN CORPUSCULAR HEMOGLOBIN 31.8 pg (27.0-33.0); MEAN CORPUSCULAR HGB CONC 33.3 g/dl (32.0-36.5); MEAN CORPUSCULAR VOLUME 95.4 fl (80.0-96.0); WHITE BLOOD COUNT 4.1 10^3/uL (4.0-10.0)
[2019-11-20 06:11] LABS: ALBUMIN 2.6 GM/DL (3.2-5.2); ALT/SGPT 29 U/L (12-78); BILIRUBIN,TOTAL 1.8 MG/DL (0.2-1.0); BLOOD UREA NITROGEN 14 MG/DL (7-18); CALCIUM LEVEL 7.8 MG/DL (8.5-10.1); CARBON DIOXIDE LEVEL 23 MEQ/L (21-32); CHLORIDE LEVEL 109 MEQ/L (98-107); CK-MB VALUE MASS < 1.0 NG/ML (<3.6); CPK CREATINE PHOSPHOKINASE 79 U/L (39-308); CREATININE FOR GFR 0.88 MG/DL (0.70-1.30); GLOMERULAR FILTRATION RATE > 60.0 (>56); GLUCOSE, FASTING 82 MG/DL (70-100); LIPASE 1940 U/L (73-393); MB/CK RELATIVE INDEX 1.27 (< OR =4); POTASSIUM SERUM 3.6 MEQ/L (3.5-5.1); SODIUM LEVEL 143 MEQ/L (136-145); TOTAL PROTEIN 5.7 GM/DL (6.4-8.2); TROPONIN I < 0.02 NG/ML (< 0.10)
[2019-11-20 06:14] LABS: PLATELET COUNT, AUTOMATED 84 10^3/uL (150-450)
[2019-11-20 06:17] LABS: LYMPHOCYTES 7 % (16-44); NEUTROPHILS 93 % (28-66)
[2019-11-20 06:18] LABS: PLATELET ESTIMATE DECREASED (NORMAL)
[2019-11-20] MEDS: GASTROGRAFIN SOLUTION 30ML PO SCH ×2 (06:27→06:56)
[2019-11-20] MEDS ORDERED: ISOVUE-370 76% 100ML VIAL As Ordered ONE (07:33)
--- NOTE | 2019-11-20 08:13 | ECGEPIP ---
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
--- NOTE | 2019-11-20 08:42 | REPVR ---
PROCEDURE INFORMATION: Exam: CT Abdomen And Pelvis With Contrast Exam date and time: 11/20/2019 7:48 AM Age: 59 years old Clinical indication: Abdominal pain; Generalized; Additional info: Generalized abdominal pain, vomiting TECHNIQUE: Imaging protocol: Computed tomography of the abdomen and pelvis with intravenous contrast. Coronal and sagittal reformats were created and reviewed. Radiation optimization: All CT scans at this facility use at least one of these dose optimization techniques: automated exposure control; mA and/or kV adjustment per patient size (includes targeted exams where dose is matched to clinical indication); or iterative reconstruction. Contrast material: ISOVUE 370; Contrast volume: 100 ml; Contrast route: IV; Other contrast: Oral, Gastrographin, 10 ml gastro to 290ml water x 2; COMPARISON: CT ABD PELVIS W/O CONTRAST 07/12/2019 10:41:41 PM FINDINGS: Lungs: Unchanged calcified bilateral lower lobe benign-appearing micronodules. Mild right lower lobe atelectasis. Pleural space: Large right pleural effusion. Liver: Diffuse nodular hepatic contour consistent with cirrhosis redemonstrated. Gallbladder and bile ducts: No intrahepatic or extrahepatic bile duct dilation. The gallbladder is diffusely dilated measuring 11.1 cm in length and 5.7 cm in diameter. Gallstones are present within the gallbladder. Pancreas: Pancreas is unremarkable. Spleen: Splenomegaly is redemonstrated. The spleen measures 16.9 cm in axial length. Unchanged mild heterogeneous splenic perfusion posteriorly. Adrenals: The right adrenal gland is unremarkable. Left adrenal 1.2 cm fat attenuation nodule consistent with an adrenal myelolipoma is unchanged. Kidneys and ureters: No hydronephrosis of either kidney. Unchanged bilateral renal circumscribed homogeneous hypoattenuating lesions consistent with simple cysts. For example, the largest at the left kidney measures 1.6 cm (series 301, image 66). No abnormal ureteral dilation. Stomach and bowel: Status post Andre-en-Y gastric bypass surgery. Oral contrast has progressed to the level of the transverse colon. No evidence of bowel obstruction. Redemonstration of a 2.5 x 1.7 cm fat attenuation nodule within the distal small bowel at the right lower quadrant, consistent with a lipoma. New diffuse colonic wall thickening of the ascending colon through the sigmoid colon, most pronounced at the colonic hepatic flexure. Appendix: The appendix is visualized and has a normal appearance. Intraperitoneal space: Small diffuse low-attenuation ascites is increased compared to 07/12/2019. Diffuse mesenteric fat stranding is redemonstrated. No pneumoperitoneum. Vasculature: Gastroesophageal varices. Recanalized periumbilical vein redemonstrated. Periumbilical varices. The portal veins appear patent. Portosystemic shunt with numerous large varices within the central abdomen and pelvis extending from the right internal iliac vein to the inferior mesenteric vein redemonstrated. The splenic vein is patent. Atherosclerosis. No abdominal aortic aneurysm. Lymph nodes: Stable mildly enlarged upper abdominal celiac axis and pericaval lymph nodes. Bladder: Urinary bladder is unremarkable. Reproductive: Unremarkable as visualized. Bones/joints: Multilevel degenerative spine disease. Severe right hip osteoarthritis redemonstrated. Mild left hip osteoarthritis redemonstrated. Soft tissues: Unchanged nonspecific subcentimeter calcification within the right scrotum. Large right inguinal hernia contains ascites as well as multiple loops of uncomplicated appearing nondilated distal small bowel. The breasts are incompletely imaged. Redemonstration of left retroareolar breast soft tissue consistent with gynecomastia. Diffuse body wall edema. IMPRESSION: 1. Hepatic cirrhosis. Sequela of portal hypertension. Varices/portosystemic shunts. Splenomegaly. 2. Increased small ascites. Stable large right pleural effusion. Stable diffuse mesenteric edema and diffuse body wall edema. 3. New diffuse colonic wall thickening. Portal hypertensive colopathy or colitis are possibilities. 4. Cholecystolithiasis. Diffuse gallbladder dilation. The gallbladder dilation may be secondary to fasting, however clinical correlation is needed to exclude signs/symptoms of cystic duct obstruction. If there is clinical concern for cystic duct obstruction, then initial further evaluation with gallbladder ultrasound is recommended. 5. Large right inguinal hernia contains uncomplicated appearing small bowel and ascites. 6. Status post gastric bypass. 7. Please see the body of the report for other findings as described. Electronically signed by: Farooq Maloney On 11/20/2019 08:41:57 AM
[2019-11-20] MEDS ORDERED: SPIRONOLACTONE 50 MG TAB PO SCH (09:00)
[2019-11-20] MEDS ORDERED: TRAM50TA2 PO (09:54)
[2019-11-20] MEDS ORDERED: ACET-683 PO (09:54)
[2019-11-20] MEDS ORDERED: [UNRECOGNIZED DRUG - CODE] PO (09:56)
[2019-11-20] MEDS ORDERED: VITA-157 PO (09:56)
[2019-11-20] MEDS ORDERED: MAGN400T2 PO (09:56)
[2019-11-20] MEDS ORDERED: VITA-172 PO (09:56)
[2019-11-20] MEDS ORDERED: VITMTA PO (09:56)
[2019-11-20] MEDS ORDERED: XIFA550T PO (09:56)
[2019-11-20] MEDS ORDERED: CARA1TAB6 PO (09:56)
[2019-11-20] MEDS ORDERED: VITAD1000T PO (09:56)
[2019-11-20] MEDS ORDERED: ALL10TAB29 PO (10:16)
[2019-11-20] MEDS ORDERED: CETIRIZINE (ZyrTEC) 10 MG TAB PO PRN (10:30)
[2019-11-20] MEDS ORDERED: ONDANSETRON 4MG/2ML VIAL IV PRN (10:30)
[2019-11-20] MEDS: NS 1,000 ML IV SCH ×3 (11:45→21:14)
[2019-11-20] MEDS: OMEPRAZOLE 20 MG CAP PO SCH ×2 (12:36→20:20)
[2019-11-20] MEDS: LACTULOSE 20 GM/30 ML SYRUP UD PO SCH ×2 (12:36→20:20)
[2019-11-20] MEDS: CYANOCOBALAMIN 500 MCG TAB PO SCH (12:36)
[2019-11-20] MEDS: MULTIVITAMINS/MINERALS THERAP 1 TAB PO SCH (12:36)
[2019-11-20] MEDS: VITAMIN D 1,000 INTERNATIONAL UNITS TABLET PO SCH (12:36)
[2019-11-20] MEDS: MAGNESIUM OXIDE 400 MG TAB (MAG-OX) PO SCH (12:36)
[2019-11-20 12:40] VITALS: BP 120/70
[2019-11-20] MEDS: PIPERACILLIN/TAZOBACTAM SOD 3.375 GM in D5W MINI-BAG PLUS 50 ML IV SCH ×3 (13:06→22:42)
[2019-11-20] MEDS: MORPHINE 4 MG/ML 1ML VIAL/SYRINGE (J2270) IV PRN (13:07)
[2019-11-20] MEDS: SUCRALFATE 1 GM TAB PO SCH ×3 (13:07→20:21)
[2019-11-20] MEDS: VITAMIN E 400 INTERNATIONAL UNITS CAP PO SCH (13:59)
[2019-11-20] MEDS: rifAXIMin 550 MG TAB (XIFAXAN) PO SCH ×2 (13:59→20:21)
[2019-11-20] MEDS: ursodioL 300 MG CAP PO SCH ×2 (13:59→20:21)
[2019-11-20 14:00] VITALS: BP 120/69
[2019-11-20] MEDS: traMADol 50 MG TAB PO PRN (17:31)
[2019-11-20 20:23] VITALS: BP 94/51
--- NOTE | 2019-11-20 20:51 | HPEPDOC ---
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 He otherwise denied diarrhea, chest pain, palpitations, fever, chills, recent weight loss, noted bleeding, travel or sick contacts. In the ED, he was HDS and afebrile. Work up was notable for CT A/P that showed a diffusely dilated gallbladder measuring 11.1 cm in length and 5.7 cm in diameter, gallstones within the gallbladder, as well as moderate ascites, stable R pleural effusion and cirrhotic liver with varices and portal HTN, lipase of 1940, WBC 4.1, hgb 12.4, platelets of 84 and Cr 0.88. He was given zosyn, given 1L NS, and admitted to medicine for management of gallstone pancreatitis. Past Medical History Medical History 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 (listed at [facility] for liver transplant), d/b ascites history of recurrent right-sided pleural effusions SVT history of PE on Eliquis gastric ulcers recent admission for gallstone pancreatitis Surgical History Back injury/rib fractures. 07/2018 secondary to trauma from a forklift Andre-en-Y gastric bypass 09/2017; reported weight loss from 330 pounds 175 pounds Family History - Mother with a history of breast cancer and diabetes - Father with a history of lung and liver cancer, Alzheimers Social History - Denies the use of tobacco or illicit drugs; quit drinking alcohol in December 2016 - Denies recent travel or sick contacts - Lives with in [place] - Occupation; patient was at [employer] Review of Systems 10 point review of systems was reviewed and all else was negative except for as stated in HPI Vital Signs - Vitals: HDS, afebrile, breathing comfortably on room air - General: Lying in bed, in mild distress, Speaking in full sentences, AOx3 - HEENT: NC, AT, PERRLA, EOMI - CVS: RRR, +S1S2 - Lungs: Diminished sounds at right lung base, clear left without crackles, wheezing or rhonchi - Abdomen: Obese, soft, non distended, tender epigastrium, no rebound or guarding - Extremities: No lower extremity edema, No calf tenderness, WWP - Neuro: No focal motor or sensory deficit - Skin: No visible rashes labs: reviewed Imaging: reviewed Plan Abdominal pain - likely 2/2 acute pancreatitis - possibly 2/2 gallstone pancreatitis with N/V/abd pain with tender epigastrium - Elevated lipase, dilated gall bladder with gallstone, with recent history of gallstone pancreatitis. Unfortunately is a poor surgical candidate given advanced liver disease so is managed medically with frequent episodes. - Will defer checking triglycerides, were wnl in 06/2019. Likely etiology is gallstone. - continue IV fluids at 150cc/hr, NPO, pain control with morphine PRN and nausea with zofran PRN Large right-sided pleural effusion: chronic, stable, breathing comfortably on ro om air - Will hold diuretics and give fluids given acute episode of likely gallstone pancreatitis - Will monitor for hypoxemia as effusion may worsen - To restart diuretics once abdominal pain is remitting, tolerating food, declining lipase 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 - per patient, is listed at [facility] for liver transplant - Imaging showing ascites and varices - Currently holding diuretics as planned above SVT - Currently heart rate remains well-controlled - c/w Atenolol with holding parameters Hx of PE in 09/2018 - continue Eliquis at this time. may have to hold it if we pursue thoracentesis or paracentesis Gastric ulcers - continue omeprazole DVT prophylaxis: On Eliquis Vital Signs Vital Signs Date Time Temp Pulse Resp B/P (MAP) Pulse Ox O2 Delivery O2 Flow Rate FiO2 11/20/19 18:20 17 11/20/19 14:00 98.4 73 120/69 (86) 96 Room Air Laboratory Data Labs 24H Laboratory Tests 2 11/20/19 05:00: Neutrophils (%) (Auto) , Nucleated Red Blood Cells % (auto) 0.0, Neutrophils 9 3H, Lymphocytes (Manual) 7L, Red Blood Cell Morphology NORMAL, Platelet Estimate DECREASED, Immature Platelet Fraction 2.3, Anion Gap 11, Glomerular Filtration Rate > 60.0, Calcium Level 7.8L, Total Bilirubin 1.8H, Direct Bilirubin 1.0H, Aspartate Amino Transf (AST/SGOT) 65H, Alanine Aminotransferase (ALT/SGPT) 29, Alkaline Phosphatase 95, Total Creatine Kinase 79, Creatine Kinase MB < 1.0, Creatine Kinase MB Relative Index 1.27, Troponin I < 0.02, Total Protein 5.7L, Albumin 2.6L, Albumin/Globulin Ratio 0.8, Lipase 1940H 11/20/19 05:29: CBC/BMP Laboratory Tests 11/20/19 05:00 Microbiology Microbiology 11/20/19 Coronavirus COVID-19 PCR (TALIB), Received Pending Home Medications Scheduled Apixaban (Eliquis) 5 Mg Tablet, 5 MG PO BID Atenolol (Atenolol) 25 Mg Tablet, 25 MG PO QHS Cholecalciferol (Vitamin D3) (Vitamin D3) 1,000 Unit Tablet, 1,000 UNITS PO DAILY Cyanocobalamin (Vitamin B-12) (Vitamin B-12) 500 Mcg Tablet, 500 MCG PO DAILY Furosemide (Furosemide) 20 Mg Tablet, 40 MG PO DAILY Lactulose (Lactulose) 10 Gm/15 Ml Solution, 30 ML PO BID Magnesium Oxide (Magnesium Oxide) 400 Mg Tablet, 400 MG PO DAILY Multivitamins (Thera M Plus Tablet) 1 Each Tablet, 1 TAB PO DAILY Omeprazole (Omeprazole) 40 Mg Capsule.dr, 40 MG PO BID Rifaximin (Xifaxan) 550 Mg Tablet, 550 MG PO BID Spironolactone (Spironolactone) 50 Mg Tablet, 100 MG PO DAILY Sucralfate (Carafate) 1 Gm Tablet, 1 GM PO ACHS 4 times per day take on an empty stomach Ursodiol (Ursodiol) 250 Mg Tablet, 250 MG PO BID Vitamin E (Dl,Tocopheryl Acet) (Vitamin E) 400 Unit Capsule, 400 UNIT PO DAILY Scheduled PRN Acetaminophen (Acetaminophen) 500 Mg Tablet, 500 MG PO Q6H PRN for PAIN Cetirizine HCl (Cetirizine HCl) 10 Mg Tablet, 10 MG PO DAILY PRN for ALLERGIES Ondansetron (Ondansetron Odt) 4 Mg Tab.rapdis, 4 MG PO Q6H PRN for NAUSEA Tramadol HCl (Tramadol HCl) 50 Mg Tablet, 150 MG PO BID PRN for PAIN Allergies Coded Allergies: No Known Allergies (Unverified , 07/12/19) A-FIB/CHADSVASC A-FIB History Current/History of A-Fib/PAF?: No Current PO Anticoag Therapy: Yes THIEN SALOMON MD November 20, 2019 20:51
[2019-11-20] MEDS: atenoloL 25 MG TAB PO SCH (21:00)
[2019-11-20 21:16] VITALS: BP 102/59
[2019-11-21] MEDS: NS 1,000 ML IV SCH ×2 (04:42→17:44)
[2019-11-21] MEDS: PIPERACILLIN/TAZOBACTAM SOD 3.375 GM in D5W MINI-BAG PLUS 50 ML IV SCH ×3 (04:42→17:43)
[2019-11-21] MEDS: traMADol 50 MG TAB PO PRN ×2 (04:50→20:25)
[2019-11-21 05:30] VITALS: BP 94/56
[2019-11-21] MEDS ORDERED: NS 500 ML IV ONE (06:00)
[2019-11-21 06:08] LABS: HEMATOCRIT 34.6 % (42.0-52.0); HEMOGLOBIN 11.6 g/dl (13.5-17.5); MEAN CORPUSCULAR HEMOGLOBIN 32.1 pg (27.0-33.0); MEAN CORPUSCULAR HGB CONC 33.5 g/dl (32.0-36.5); MEAN CORPUSCULAR VOLUME 95.8 fl (80.0-96.0); RED BLOOD COUNT 3.61 10^6/uL (4.30-6.10); WHITE BLOOD COUNT 8.9 10^3/uL (4.0-10.0)
[2019-11-21 06:10] LABS: PLATELET COUNT, AUTOMATED 57 10^3/uL (150-450)
[2019-11-21] MEDS: MORPHINE 4 MG/ML 1ML VIAL/SYRINGE (J2270) IV PRN (06:33)
[2019-11-21 06:41] LABS: ALBUMIN 2.2 GM/DL (3.2-5.2); ALT/SGPT 31 U/L (12-78); BILIRUBIN,TOTAL 1.4 MG/DL (0.2-1.0); BLOOD UREA NITROGEN 23 MG/DL (7-18); CALCIUM LEVEL 7.8 MG/DL (8.5-10.1); CARBON DIOXIDE LEVEL 25 MEQ/L (21-32); CHLORIDE LEVEL 108 MEQ/L (98-107); CREATININE FOR GFR 0.89 MG/DL (0.70-1.30); GLOMERULAR FILTRATION RATE > 60.0 (>56); GLUCOSE, FASTING 87 MG/DL (70-100); MAGNESIUM LEVEL 1.8 MG/DL (1.8-2.4); POTASSIUM SERUM 4.4 MEQ/L (3.5-5.1); SODIUM LEVEL 138 MEQ/L (136-145); TOTAL PROTEIN 4.9 GM/DL (6.4-8.2)
[2019-11-21 08:02] LABS: LIPASE 221 U/L (73-393)
[2019-11-21] MEDS: VITAMIN D 1,000 INTERNATIONAL UNITS TABLET PO SCH (09:57)
[2019-11-21] MEDS: ursodioL 300 MG CAP PO SCH ×2 (09:57→20:26)
[2019-11-21] MEDS: OMEPRAZOLE 20 MG CAP PO SCH ×2 (09:58→20:24)
[2019-11-21] MEDS: LACTULOSE 20 GM/30 ML SYRUP UD PO SCH ×4 (09:58→20:26)
[2019-11-21] MEDS: MAGNESIUM OXIDE 400 MG TAB (MAG-OX) PO SCH (09:58)
[2019-11-21] MEDS: SUCRALFATE 1 GM TAB PO SCH ×4 (09:58→20:26)
[2019-11-21] MEDS: rifAXIMin 550 MG TAB (XIFAXAN) PO SCH ×2 (09:58→20:24)
[2019-11-21] MEDS: MULTIVITAMINS/MINERALS THERAP 1 TAB PO SCH (09:58)
[2019-11-21] MEDS: VITAMIN E 400 INTERNATIONAL UNITS CAP PO SCH (09:58)
[2019-11-21] MEDS: CYANOCOBALAMIN 500 MCG TAB PO SCH (09:58)
[2019-11-21 12:32] VITALS: BP 112/68
[2019-11-21] MEDS: ACETAMINOPHEN TAB 650MG DOSE (2X325MG) PO PRN (12:35)
[2019-11-21 18:00] VITALS: BP 103/63
--- NOTE | 2019-11-21 19:15 | IPNPDOC ---
Text Note Date of Service The patient was seen on 11/21/19. NOTE Subjective: -HDS, afebrile, abdominal pain resolved -Reporting some diarrhea since starting the zosyn as well as being on lactulose and rifaximin Objective: - Vitals: see below - General: NAD this morning, conversational - HEENT: NC, AT, PERRLA, EOMI - CVS: RRR, +S1S2 - Lungs: Persistent diminished sounds in posterior right lung field at the base, clear left without crackles, wheezing or rhonchi - Abdomen: Obese, soft, NTND - Extremities: No lower extremity edema, No calf tenderness, WWP - Neuro: No focal motor or sensory deficit - Skin: No visible rashes labs: reviewed. 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 Plan Abdominal pain - 2/2 acute pancreatitis - possibly 2/2 gallstone pancreatitis with N/V/abd pain with tender epigastrium, now resolved. - Elevated lipase, dilated gall bladder with gallstone, with recent history of gallstone pancreatitis. Unfortunately is a poor surgical candidate given advanced liver disease so is managed medically with frequent episodes, discussed with Dr. Sloan whom I consulted on admission. - Will defer checking triglycerides, were wnl in 06/2019. Likely etiology is gallstones that are present with a dilated gall blader. - discontinue IV fluids, start clear liquid diet, pain control with morphine PRN and nausea with zofran PRN Large right-sided pleural effusion: chronic, stable, breathing comfortably on room air - Restart diuretics - Will monitor for hypoxemia as effusion may worsen with recent fluids 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 - per patient, is listed at [facility] for liver transplant - Imaging showing ascites and varices - Restart diuretics -Continue lactulose and rifaximin SVT - Currently heart rate remains well-controlled - c/w Atenolol with holding parameters Hx of PE in 09/2018 - continue Eliquis at this time. Gastric ulcers - continue omeprazole DVT prophylaxis: On Eliquis VS,Fishbone, I+O VS, Fishbone, I+O Laboratory Tests 11/21/19 05:55 Vital Signs Date Time Temp Pulse Resp B/P (MAP) Pulse Ox O2 Delivery O2 Flow Rate FiO2 11/21/19 06:45 18 Room Air 11/21/19 05:30 98.1 64 94/56 (17) 94 I&O- Last 24 Hours up to 6 AM 11/21/19 06:00 Intake Total 2950 ml Output Total 300 ml Balance 2650 ml THIEN SALOMON MD November 21, 2019 07:32
[2019-11-21 20:00] VITALS: BP 124/74
--- NOTE | 2019-11-21 20:21 | CR ---
DATE OF CONSULTATION: 11/21/2019 REASON FOR CONSULTATION: Possible gallstone pancreatitis. HISTORY OF PRESENT ILLNESS: Patient is a 58-year-old male who has a history of BASS, was recently diagnosed within the last couple of years for this. He originally was having problems with his gallbladder and was scheduled to have his gallbladder removed. Just prior to surgery, he developed shortness of breath, had a pleural effusion, and was diagnosed with a liver disease at that time. He is under care through [facility] transplant team. He is on their transplant list. He has had multiple gallbladder attacks over the last couple of years, all have been treated medically and he is awaiting for his transplant to take care of the gallbladder disease. He presented to the emergency room with severe nausea, vomiting and abdominal pains radiating up into the right shoulder. He was admitted to the medicine service with a lipase of 1940. I was asked to evaluate him while he is here. I explained to the hospitalist that with his history, he is definitely not a surgical candidate at this time. If things proceed to get worse, he may benefit from a cholecystostomy drain, however even that is unlikely at this time given his ascites and portal hypertension. When I went to see the patient this morning, I realized he is under droplet precautions for COVID testing, so rather than entering his room I spoke with him over the phone at the nurse's station. He was agreeable to that. He feels significant improvement this morning. He has some slight tenderness in the abdomen and into the right shoulder but overall feels 100% improved from yesterday. His lipase is back to normal already, all of his labs have improved. No nausea or vomiting, no fevers or chills. He is currently nothing by mouth but is very anxious to start eating. He again claims that he has had all these symptoms for years and is used to them and he understands that he is not a good candidate for surgery at this time. PAST MEDICAL HISTORY: Cirrhosis secondary to BASS with pleural effusions and ascites, supraventricular tachycardia, history of PE, gastric ulcers, gallstone pancreatitis. PAST SURGICAL HISTORY: Back injury, rib fractures, he has also had a Andre-en-Y gastric bypass. FAMILY HISTORY: Noncontributory. SOCIAL HISTORY: Negative. REVIEW OF SYSTEMS: Pertinent positive and negatives as stated in HPI. Physical exam is deferred at this time. LABORATORY DATA: They are all reviewed. His white count on admission 4.1, up to 8.9, hemoglobin 12.4, lipase was 1940, down to 221 this morning, total bilirubin was 1.8 on admission, down to 1.4. AST was 65, down to 51. IMAGING STUDIES: CT abdomen and pelvis showed cirrhosis with portal hypertension, varices, portosystemic shunt, splenomegaly, small amount of ascites, stable large right pleural effusion, mesenteric edema, diffuse body wall edema. He has colonic wall thickening, portal hypertensive colopathy or colitis are possibilities, cholecystolithiasis, diffuse gallbladder dilation, large right inguinal hernia with small bowel ascites. 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 He is already on the transplant list at [facility]. His most acute issue at this point is the gallstone pancreatitis that appears to have resolved overnight. He likely passed a small stone. Lipase is back to normal and his symptoms are all improving rapidly. Recommend to restart him on a diet this morning. Likely plan for discharge this afternoon. He can continue to followup with his transplant team as scheduled.
[2019-11-21] MEDS: APIXABAN 5 MG TAB (ELIQUIS) PO SCH (20:24)
[2019-11-21] MEDS: atenoloL 25 MG TAB PO SCH (20:26)
[2019-11-22] VITALS (7 sets, daily range): BP systolic 101–137; BP diastolic 57–82
[2019-11-22] MEDS: ACETAMINOPHEN TAB 650MG DOSE (2X325MG) PO PRN ×3 (00:16→19:49)
[2019-11-22] MEDS: PIPERACILLIN/TAZOBACTAM SOD 3.375 GM in D5W MINI-BAG PLUS 50 ML IV SCH ×4 (02:56→19:45)
[2019-11-22 03:33] LABS: HEMATOCRIT 32.2 % (42.0-52.0); HEMOGLOBIN 10.9 g/dl (13.5-17.5); MEAN CORPUSCULAR HEMOGLOBIN 32.3 pg (27.0-33.0); MEAN CORPUSCULAR HGB CONC 33.9 g/dl (32.0-36.5); MEAN CORPUSCULAR VOLUME 95.5 fl (80.0-96.0); PLATELET COUNT, AUTOMATED 51 10^3/uL (150-450); RED BLOOD COUNT 3.37 10^6/uL (4.30-6.10); WHITE BLOOD COUNT 3.6 10^3/uL (4.0-10.0)
[2019-11-22 04:17] LABS: ALBUMIN 2.1 GM/DL (3.2-5.2); ALT/SGPT 23 U/L (12-78); BILIRUBIN,TOTAL 1.2 MG/DL (0.2-1.0); BLOOD UREA NITROGEN 21 MG/DL (7-18); CALCIUM LEVEL 7.6 MG/DL (8.5-10.1); CARBON DIOXIDE LEVEL 23 MEQ/L (21-32); CHLORIDE LEVEL 108 MEQ/L (98-107); CREATININE FOR GFR 0.68 MG/DL (0.70-1.30); GLOMERULAR FILTRATION RATE > 60.0 (>56); GLUCOSE, FASTING 74 MG/DL (70-100); POTASSIUM SERUM 3.9 MEQ/L (3.5-5.1); SODIUM LEVEL 135 MEQ/L (136-145); TOTAL PROTEIN 4.6 GM/DL (6.4-8.2)
[2019-11-22 09:20] LABS: LIPASE 100 U/L (73-393)
[2019-11-22] MEDS: traMADol 50 MG TAB PO PRN ×2 (09:28→17:50)
[2019-11-22] MEDS: OMEPRAZOLE 20 MG CAP PO SCH ×2 (09:28→19:46)
[2019-11-22] MEDS: SUCRALFATE 1 GM TAB PO SCH ×4 (09:29→19:46)
[2019-11-22] MEDS: SPIRONOLACTONE 50 MG TAB PO SCH (09:29)
[2019-11-22] MEDS: LACTULOSE 20 GM/30 ML SYRUP UD PO SCH ×3 (09:29→19:55)
[2019-11-22] MEDS: APIXABAN 5 MG TAB (ELIQUIS) PO SCH ×2 (09:30→19:46)
[2019-11-22] MEDS: CYANOCOBALAMIN 500 MCG TAB PO SCH (09:30)
[2019-11-22] MEDS: VITAMIN E 400 INTERNATIONAL UNITS CAP PO SCH (09:30)
[2019-11-22] MEDS: rifAXIMin 550 MG TAB (XIFAXAN) PO SCH ×2 (09:30→19:46)
[2019-11-22] MEDS: ursodioL 300 MG CAP PO SCH ×2 (09:30→19:45)
[2019-11-22] MEDS: FUROSEMIDE 20 MG TAB PO SCH (09:30)
[2019-11-22] MEDS: VITAMIN D 1,000 INTERNATIONAL UNITS TABLET PO SCH (09:30)
[2019-11-22] MEDS: MULTIVITAMINS/MINERALS THERAP 1 TAB PO SCH (09:31)
[2019-11-22] MEDS: MAGNESIUM OXIDE 400 MG TAB (MAG-OX) PO SCH (09:31)
--- NOTE | 2019-11-22 15:06 | IPNPDOC ---
Text Note Date of Service The patient was seen on 11/22/19. NOTE Subjective: -HDS, spiked a fever overnight to 101.2 -Otherwise no pain -Remains on clears Objective: - Vitals: see below - General: NAD this morning, conversational - HEENT: NC, AT, PERRLA, EOMI - CVS: RRR, +S1S2 - Lungs: Persistent diminished sounds in posterior right lung field at the base, clear left without crackles, wheezing or rhonchi - Abdomen: Obese, soft, mild TTP in RUQ - Extremities: No lower extremity edema, No calf tenderness, WWP - Neuro: No focal motor or sensory deficit - Skin: No visible rashes labs: reviewed. WBC uptrended to 12.4. 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 Plan Abdominal pain - 2/2 acute gallstone pancreatitis with N/V/abd pain with tender epigastrium. - Elevated lipase, dilated gall bladder with gallstone, with recent history of gallstone pancreatitis. Unfortunately is a poor surgical candidate given advanced liver disease so we managed medically but course now c/b fever. Delmy kendrick discussed with Dr. Sloan whom I consulted on admission and plan had been to get him through the pancreatitis with supportive treatment and for him to follow up at [facility] as he is listed for liver transplant there. -continue clear liquid diet until transfer tomorrow to [facility] hepatology Large right-sided pleural effusion: chronic, stable, breathing comfortably on room air - Restart diuretics - Will monitor for hypoxemia as effusion may worsen with recent fluids 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 - Is listed at [place] [facility] for liver transplant - Imaging showing ascites and varices - Thus far, remains hemodynamically stable, so will continue his daily home diuretics - Continue lactulose and rifaximin SVT - Currently heart rate remains well-controlled - c/w Atenolol with holding parameters Hx of PE in 09/2018 - continue Eliquis at this time. Gastric ulcers - continue omeprazole DVT prophylaxis: continue eliquis Diet: clears Dispo: [facility] hepatology transfer tomorrow Pratibha MEYERS, I+O VSPratibha, I+O Laboratory Tests 11/22/19 02:29 Vital Signs Date Time Temp Pulse Resp B/P (MAP) Pulse Ox O2 Delivery O2 Flow Rate FiO2 11/22/19 10:35 17 Room Air 11/22/19 08:00 97.3 67 130/82 (98) 94 I&O- Last 24 Hours up to 6 AM 11/22/19 06:00 Intake Total 3640 ml Output Total 400 ml Balance 3240 ml THIEN SALOMON MD November 22, 2019 15:06
[2019-11-22] MEDS: atenoloL 25 MG TAB PO SCH (19:45)
[2019-11-23] MEDS: PIPERACILLIN/TAZOBACTAM SOD 3.375 GM in D5W MINI-BAG PLUS 50 ML IV SCH ×2 (03:11→07:41)
[2019-11-23 06:56] VITALS: BP 106/52
[2019-11-23] MEDS: APIXABAN 5 MG TAB (ELIQUIS) PO SCH (07:39)
[2019-11-23] MEDS: FUROSEMIDE 20 MG TAB PO SCH (07:39)
[2019-11-23] MEDS: SPIRONOLACTONE 50 MG TAB PO SCH (07:39)
[2019-11-23] MEDS: VITAMIN E 400 INTERNATIONAL UNITS CAP PO SCH (07:39)
[2019-11-23] MEDS: MAGNESIUM OXIDE 400 MG TAB (MAG-OX) PO SCH (07:39)
--- NOTE | 2019-11-23 07:39 | DS.PDOC ---
Discharge Summary General Date of Admission November 20, 2019 at 10:30 Date of Discharge 11/23/2019 Attending Physician: THIEN SALOMON MD Discharge Summary PROCEDURES PERFORMED DURING STAY: None ADMITTING DIAGNOSES: 1. 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 He otherwise denied diarrhea, chest pain, palpitations, fever, chills, recent weight loss, noted bleeding, travel or sick contacts. HOSPITAL COURSE: In the ED, he was HDS and afebrile. Work up was notable for CT A/P that showed a diffusely dilated gallbladder measuring 11.1 cm in length and 5.7 cm in diameter, gallstones within the gallbladder, as well as moderate ascites, stable R pleural effusion and cirrhotic liver with varices and portal HTN, lipase of 1940, WBC 4.1, hgb 12.4, platelets of 84, Cr 0.88 and he was covid-19 negative. He was given zosyn, given 1L NS, and admitted to medicine for management of gallstone pancreatitis. While on the floor, he was continued on supportive fluids, made NPO, continued on empiric zosyn and within 24h his lipase normalized, abdominal pain had resolved and a clear liquid diet was restarted that he tolerated well. Fluids and zosyn were discontinued. Plan had been to discharge home if he tolerated a regular diet and before advancement of his diet, he spiked a fever to 101.2 without return of abdominal pain. Blood cultures were drawn and zosyn was restarted. Given dilated gallbladder with a high stone burden and now with a fever, in a host with BASS cirrhosis on a transplant list, I called [facility] transfer center for potential transfer to [facility] hepatology where he follows and is listed. He was accepted and is now being transferred to [facility] hepatology service and was accepted by Dr. Brennen Buckley. DISCHARGE MEDICATIONS: Please see below. ALLERGIES: Please see below. PHYSICAL EXAMINATION ON DISCHARGE: VITAL SIGNS: Please see below. General: NAD HEENT: NC, AT, PERRLA, EOMI CVS: RRR, +S1S2 Lungs: Persistent diminished sounds in posterior right lung field at the base, clear left without crackles, wheezing or rhonchi Abdomen: Obese, normoactive sounds, soft, mild ttp in RUQ, +fluid wave Extremities: No lower extremity edema, No calf tenderness, WWP Neuro: No focal motor or sensory deficit Skin: No visible rashes LABORATORY DATA: Please see below. IMAGING: CT A/P 1. Hepatic cirrhosis. Sequela of portal hypertension. Varices/portosystemic shunts. Splenomegaly. 2. Increased small ascites. Stable large right pleural effusion. Stable diffuse mesenteric edema and diffuse body wall edema. 3. New diffuse colonic wall thickening. Portal hypertensive colopathy or colitis are possibilities. 4. Cholecystolithiasis. Diffuse gallbladder dilation. The gallbladder dilation may be secondary to fasting, however clinical correlation is needed to exclude signs/symptoms of cystic duct obstruction. If there is clinical concern for cystic duct obstruction, then initial further evaluation with gallbladder ultrasound is recommended. 5. Large right inguinal hernia contains uncomplicated appearing small bowel and ascites. 6. Status post gastric bypass. 7. Please see the body of the report for other findings as described. ACTIVITY: As tolerated DIET: clear liquid diet DISCHARGE PLAN: Being transferred to [facility] hepatology servi ce, accepted by Dr. Brennen Buckley. DISPOSITION: Hospital to hospital transfer to [facility] ITEMS TO FOLLOWUP ON ON OUTPATIENT: 1. Abdominal pain resolution, recurrence of gallstone pancreatitis, distended gallbladder with gallstone and now with fevers 2. Cirrhosis, follow up with hepatology at [facility] DISCHARGE CONDITION: Stable TIME SPENT ON DISCHARGE: 41 minutes. Vital Signs/I&Os Vital Signs Date Time Temp Pulse Resp B/P (MAP) Pulse Ox O2 Delivery O2 Flow Rate FiO2 11/22/19 04:00 98.2 62 18 129/70 (89) 93 Room Air I&O- Last 24 Hours up to 6 AM 11/22/19 06:00 Intake Total 3640 ml Output Total 400 ml Balance 3240 ml Laboratory Data Labs 24H Laboratory Tests 2 11/22/19 02:29: Nucleated Red Blood Cells % (auto) 0.0, Anion Gap 4L, Glomerular Filtration Rate > 60.0, Calcium Level 7.6L, Total Bilirubin 1.2H, Aspartate Amino Transf (AST/SGOT) 32, Alanine Aminotransferase (ALT/SGPT) 23, Alkaline Phosphatase 49, Total Protein 4.6L, Albumin 2.1L, Albumin/Globulin Ratio 0.8 CBC/BMP Laboratory Tests 11/22/19 02:29 Microbiology Microbiology 11/22/19 Blood Culture, Received Pending 11/22/19 Blood Culture, Received Pending 11/20/19 Coronavirus COVID-19 PCR (TALIB) - Final, Complete Discharge Medications Scheduled Apixaban (Eliquis) 5 Mg Tablet, 5 MG PO BID, (Reported) Atenolol (Atenolol) 25 Mg Tablet, 25 MG PO QHS, (Reported) Cholecalciferol (Vitamin D3) (Vitamin D3) 1,000 Unit Tablet, 1,000 UNITS PO DAILY, (Reported) Cyanocobalamin (Vitamin B-12) (Vitamin B-12) 500 Mcg Tablet, 500 MCG PO DAILY, (Reported) Lactulose (Lactulose) 10 Gm/15 Ml Solution, 30 ML PO BID, (Reported) Magnesium Oxide (Magnesium Oxide) 400 Mg Tablet, 400 MG PO DAILY, (Reported) Multivitamins (Thera M Plus Tablet) 1 Each Tablet, 1 TAB PO DAILY, (Reported) Omeprazole (Omeprazole) 40 Mg Capsule.dr, 40 MG PO BID, (Reported) Rifaximin (Xifaxan) 550 Mg Tablet, 550 MG PO BID, (Reported) Spironolactone (Spironolactone) 50 Mg Tablet, 100 MG PO DAILY, (Reported) Sucralfate (Carafate) 1 Gm Tablet, 1 GM PO ACHS, (Reported) 4 times per day take on an empty stomach Ursodiol (Ursodiol) 250 Mg Tablet, 250 MG PO BID, (Reported) Vitamin E (Dl,Tocopheryl Acet) (Vitamin E) 400 Unit Capsule, 400 UNIT PO DAILY, (Reported) Scheduled PRN Acetaminophen (Acetaminophen) 500 Mg Tablet, 500 MG PO Q6H PRN for PAIN, (Reported) Cetirizine HCl (Cetirizine HCl) 10 Mg Tablet, 10 MG PO DAILY PRN for ALLERGIES, (Reported) Ondansetron (Ondansetron Odt) 4 Mg Tab.rapdis, 4 MG PO Q6H PRN for NAUSEA, (Reported) Tramadol HCl (Tramadol HCl) 50 Mg Tablet, 150 MG PO BID PRN for PAIN, (Reported) Allergies Coded Allergies: No Known Allergies (Unverified , 07/12/19) THIEN SALOMON MD November 22, 2019 08:35
[2019-11-23] MEDS: rifAXIMin 550 MG TAB (XIFAXAN) PO SCH (07:40)
[2019-11-23] MEDS: OMEPRAZOLE 20 MG CAP PO SCH (07:40)
[2019-11-23] MEDS: CYANOCOBALAMIN 500 MCG TAB PO SCH (07:40)
[2019-11-23] MEDS: traMADol 50 MG TAB PO PRN (07:40)
[2019-11-23] MEDS: MULTIVITAMINS/MINERALS THERAP 1 TAB PO SCH (07:40)
[2019-11-23] MEDS: VITAMIN D 1,000 INTERNATIONAL UNITS TABLET PO SCH (07:40)
[2019-11-23] MEDS: ursodioL 300 MG CAP PO SCH (07:40)
[2019-11-23] MEDS: SUCRALFATE 1 GM TAB PO SCH (07:40)
[2019-11-23 07:41] LABS: HEMATOCRIT 32.4 % (42.0-52.0); HEMOGLOBIN 11.2 g/dl (13.5-17.5); MEAN CORPUSCULAR HEMOGLOBIN 32.1 pg (27.0-33.0); MEAN CORPUSCULAR HGB CONC 34.6 g/dl (32.0-36.5); MEAN CORPUSCULAR VOLUME 92.8 fl (80.0-96.0); RED BLOOD COUNT 3.49 10^6/uL (4.30-6.10); WHITE BLOOD COUNT 1.8 10^3/uL (4.0-10.0)
[2019-11-23 07:48] LABS: PLATELET COUNT, AUTOMATED 52 10^3/uL (150-450)
[2019-11-23 07:59] LABS: ALBUMIN 1.8 GM/DL (3.2-5.2); ALT/SGPT 21 U/L (12-78); BILIRUBIN,TOTAL 1.1 MG/DL (0.2-1.0); BLOOD UREA NITROGEN 11 MG/DL (7-18); CALCIUM LEVEL 7.6 MG/DL (8.5-10.1); CARBON DIOXIDE LEVEL 26 MEQ/L (21-32); CHLORIDE LEVEL 104 MEQ/L (98-107); CREATININE FOR GFR 0.58 MG/DL (0.70-1.30); GLOMERULAR FILTRATION RATE > 60.0 (>56); GLUCOSE, FASTING 68 MG/DL (70-100); POTASSIUM SERUM 3.6 MEQ/L (3.5-5.1); SODIUM LEVEL 136 MEQ/L (136-145); TOTAL PROTEIN 4.4 GM/DL (6.4-8.2)
[2019-11-23] MEDS: LACTULOSE 20 GM/30 ML SYRUP UD PO SCH (08:19)
== END 2019-11-23 11:25 | disposition short-term general hospital (02) | DRG 282 ==
LOC: M ED 04:25 → M ED INP 10:30 → ENRESERV 11:43 → M 4MAIN 12:52 → M MS5PR 11-22 12:38
PROVIDERS: ADMIT Internal Medicine; ATTEND Internal Medicine
DX: K85.10 Biliary acute pancreatitis without necrosis or infection (principal); J90 Pleural effusion, not elsewhere classified; R18.8 Other ascites; K76.6 Portal hypertension; I47.1 Supraventricular tachycardia; K74.69 Other cirrhosis of liver; K75.81 Nonalcoholic steatohepatitis (NASH); K28.9 Gastrojejunal ulcer, unspecified as acute or chronic, without hemorrhage or perforation; K80.20 Calculus of gallbladder without cholecystitis without obstruction; Z98.84 Bariatric surgery status; Z79.01 Long term (current) use of anticoagulants; Z79.899 Other long term (current) drug therapy; Z86.711 Personal history of pulmonary embolism; Z79.82 Long term (current) use of aspirin; Z11.59 Encounter for screening for other viral diseases

== ENCOUNTER → 2019-11-30 | Outpatient (CLI) | payer OTHER ==
[~2019-11-30] MED LIST changes: +ACET-683 PO; +ALL10TAB29 PO; +CARA1TAB6 PO; +HYDR-3715 PO; +Ketorolac Tromethamine IV; +LEVA12INH NEB; +MAGN400T2 PO; +MORP4INJ2 IV; +ONDA4INJ4 IV; +PERCOCET PO; +VITA-157 PO; +VITA-172 PO; +VITAD1000T PO; +VITMTA PO; +XIFA550T PO; +[UNRECOGNIZED DRUG - CODE] PO
== END ==
LOC: M LABSMTC 11:13
PROVIDERS: ATTEND Family Medicine
DX: Z03.818 Encounter for observation for suspected exposure to other biological agents ruled out (principal); Z11.59 Encounter for screening for other viral diseases
CPT/HCPCS: C9803; U0003

== ENCOUNTER 2019-12-06 19:01 | Inpatient (IN) | payer OTHER ==
[~2019-12-06] VITALS: Ht 175.3 cm; Wt 90.1 kg
[~2019-12-06 19:01] MED LIST changes: -HYDR-3715 PO; -Ketorolac Tromethamine IV; -LEVA12INH NEB; -MORP4INJ2 IV; -ONDA4INJ4 IV; -PERCOCET PO
[2019-12-06] MEDS ORDERED: FURO20TA2 PO (19:15)
[2019-12-06 19:48] LABS: BASO % 0.6 % (0.0-1.0); EOS # 0.1 10^3/uL (0.0-0.5); EOS % 1.3 % (0.0-3.0); HEMATOCRIT 41.7 % (42.0-52.0); HEMOGLOBIN 13.9 g/dl (13.5-17.5); LYMPH # 1.2 10^3/uL (1.5-5.0); LYMPH % 18.5 % (24.0-44.0); MEAN CORPUSCULAR HEMOGLOBIN 31.6 pg (27.0-33.0); MEAN CORPUSCULAR HGB CONC 33.3 g/dl (32.0-36.5); MEAN CORPUSCULAR VOLUME 94.8 fl (80.0-96.0); MONO # 0.1 10^3/uL (0.0-0.8); MONO % 2.3 % (0.0-5.0); NEUTROPHILS # 4.8 10^3/uL (1.5-8.5); PLATELET COUNT, AUTOMATED 157 10^3/uL (150-450); WHITE BLOOD COUNT 6.2 10^3/uL (4.0-10.0)
[2019-12-06 20:11] LABS: ALBUMIN 2.6 GM/DL (3.2-5.2); BILIRUBIN,DIRECT 2.4 MG/DL (0.0-0.2); BILIRUBIN,TOTAL 3.1 MG/DL (0.2-1.0); TOTAL PROTEIN 6.3 GM/DL (6.4-8.2)
[2019-12-06] MEDS ORDERED: MORPHINE 4 MG/ML 1ML VIAL/SYRINGE (J2270) IV ONE (20:30)
[2019-12-06] MEDS ORDERED: NS 1,000 ML IV ONE (20:30)
[2019-12-06] MEDS ORDERED: ONDANSETRON 4MG/2ML VIAL IV ONE (20:30)
[2019-12-06] MEDS ORDERED: ISOVUE-370 76% 100ML VIAL As Ordered ONE (20:56)
--- NOTE | 2019-12-06 21:11 | HPEPDOC ---
[facility] Medical History & Physical Date of Admission Dec 06, 2019 Date of Service: Dec 06, 2019 Attending Physician: RAZA BHAT MD History and Physical CHIEF COMPLAINT: Abdominal pain with vomiting HISTORY OF PRESENT ILLNESS: 59-year-old male with past medical history of liver cirrhosis secondary to BASS, pulmonary embolism on Eliquis, SVT and recurrent pancreatitis presents to the hospital with abdominal pain. Patient was admitted to weeks ago for acute pancreatitis, now reports acute abdominal pain which started at 3 PM, with associated nausea and vomiting. He has had multiple episodes of pancreatitis, appear to be gallstone pancreatitis, reports that he is a poor candidate for surgical intervention. He denies any fever, chest pain, shortness of breath or diarrhea. 10 point review of system is negative except for above PAST MEDICAL HISTORY: 1. Recurrent pancreatitis. 2. Liver cirrhosis. 3. Nonalcoholic steatohepatitis. 4. Pulmonary embolism 5. SVT PAST SURGICAL HISTORY: 1. Gastric bypass. SOCIAL HISTORY: Denies smoking history. Denies alcohol use. Denies drug use FAMILY HISTORY: Positive for liver cancer ALLERGIES: Please see below. HOME MEDICATIONS: Please see below. PHYSICAL EXAMINATION: VITAL SIGNS: Please see below. GENERAL: Mild to moderate distress, actively vomiting HEENT: Normocephalic, atraumatic, dry mucous membranes NECK: Supple CARDIOVASCULAR EXAMINATION: S1, S2, tachycardic, no murmurs RESPIRATORY EXAMINATION: Diminished in the bases, scattered rhonchi, no wheezing ABDOMINAL EXAMINATION: Soft, diffuse tenderness to palpation, mildly distended, positive bowel sounds EXTREMITIES: Range of motion intact SKIN: No rash NEUROLOGICAL EXAMINATION: Alert and oriented 3, no focal deficits PSYCHIATRIC EXAMINATION: Calm and cooperative LABORATORY DATA: See below. IMAGING: CT abdomen and pelvis pending MICROBIOLOGY: Please see below. ASSESSMENT: 59-year-old male with past medical history of cirrhosis secondary to nonalcoholic steatohepatitis, recurrent pancreatitis, pulmonary embolism and SVT is being admitted for acute pancreatitis. PLAN: 1. Acute pancreatitis History of recurrent pancreatitis, CT abdomen and pelvis pending, will need workup to assess for choledocholithiasis. If common bile duct is dilated on CAT scan, nothing by mouth, IV fluids, pain control. 2. History of Pulmonary embolism. Continue Eliquis 3. Liver cirrhosis. Secondary to nonalcoholic steatohepatitis, currently on transplant list, continue outpatient regimen except for Lasix, which will be held at this time. 4. History of SVT. Continue atenolol 5. History of Gastric ulcers. History of gastric bypass, continue PPI and Carafate DVT per flexes: On Eliquis GI prophylaxis: Home PPI and Carafate Vital Signs Vital Signs Date Time Temp Pulse Resp B/P (MAP) Pulse Ox O2 Delivery O2 Flow Rate FiO2 12/06/19 20:44 18 99 Room Air 12/06/19 19:41 12/06/19 19:01 97.7 84 Laboratory Data Labs 24H Laboratory Tests 2 12/06/19 19:27: Immature Granulocyte % (Auto) 0.3, Neutrophils (%) (Auto) 77.0H, Lymphocytes (%) (Auto) 18.5L, Monocytes (%) (Auto) 2.3, Eosinophils (%) (Auto) 1.3, Basophils (%) (Auto) 0.6, Neutrophils # (Auto) 4.8, Lymphocytes # (Auto) 1.2L, Monocytes # (Auto) 0.1, Eosinophils # (Auto) 0.1, Basophils # (Auto) 0.0, Nucleated Red Blood Cells % (auto) 0.0, Total Bilirubin 3.1H, Direct Bilirubin 2.4H, Aspartate Amino Transf (AST/SGOT) 49H, Alanine Aminotransferase (ALT/SGPT) 22, Alkaline Phosphatase 116, Total Protein 6.3L, Albumin 2.6L, Albumin/Globulin Ratio 0.7, Lipase [id number] 12/06/19 19:38: POC Glucose (Misc Panel) 111H, POC Sodium (Misc Panel) 140, POC Potassium (Misc Panel) 3.9, POC Chloride (Misc Panel) 100, POC Total CO2 (Misc Panel) 24.0, POC Blood Urea Nitrogen (Misc Panel 12, POC Ionized Calcium (Misc Panel) 4.6, POC Creatinine (Misc Panel) 0.7, POC Hematocrit (Misc Panel) 43.0 CBC/BMP Laboratory Tests 12/06/19 19:27 Home Medications Scheduled Apixaban (Eliquis) 5 Mg Tablet, 5 MG PO BID Atenolol (Atenolol) 25 Mg Tablet, 25 MG PO QHS Cholecalciferol (Vitamin D3) (Vitamin D3) 1,000 Unit Tablet, 1,000 UNITS PO DAILY Cyanocobalamin (Vitamin B-12) (Vitamin B-12) 500 Mcg Tablet, 500 MCG PO DAILY Furosemide (Furosemide) 20 Mg Tablet, 40 MG PO DAILY Lactulose (Lactulose) 10 Gm/15 Ml Solution, 30 ML PO BID Magnesium Oxide (Magnesium Oxide) 400 Mg Tablet, 400 MG PO DAILY Multivitamins (Thera M Plus Tablet) 1 Each Tablet, 1 TAB PO DAILY Omeprazole (Omeprazole) 40 Mg Capsule.dr, 40 MG PO BID Rifaximin (Xifaxan) 550 Mg Tablet, 550 MG PO BID Spironolactone (Spironolactone) 50 Mg Tablet, 100 MG PO DAILY Sucralfate (Carafate) 1 Gm Tablet, 1 GM PO ACHS 4 times per day take on an empty stomach Ursodiol (Ursodiol) 250 Mg Tablet, 250 MG PO BID Vitamin E (Dl,Tocopheryl Acet) (Vitamin E) 400 Unit Capsule, 400 UNIT PO DAILY Scheduled PRN Acetaminophen (Acetaminophen) 500 Mg Tablet, 500 MG PO Q6H PRN for PAIN Cetirizine HCl (Cetirizine HCl) 10 Mg Tablet, 10 MG PO DAILY PRN for ALLERGIES Ondansetron (Ondansetron Odt) 4 Mg Tab.rapdis, 4 MG PO Q6H PRN for NAUSEA Tramadol HCl (Tramadol HCl) 50 Mg Tablet, 150 MG PO BID PRN for PAIN Allergies Coded Allergies: No Known Allergies (Unverified , 07/12/19) A-FIB/CHADSVASC A-FIB History Current/History of A-Fib/PAF?: No RAZA BHAT MD Dec 06, 2019 21:11
[2019-12-06] MEDS: NS 1,000 ML IV SCH (21:15)
[2019-12-06] MEDS ORDERED: CETIRIZINE (ZyrTEC) 10 MG TAB PO PRN (21:15)
--- NOTE | 2019-12-06 21:43 | REPVR ---
PROCEDURE INFORMATION: Exam: CT Abdomen And Pelvis With Contrast Exam date and time: 12/06/2019 8:54 PM Age: 59 years old Clinical indication: Abdominal pain; Generalized; Additional info: Abd pain HX of pancreatitis TECHNIQUE: Imaging protocol: Computed tomography of the abdomen and pelvis with intravenous contrast. Radiation optimization: All CT scans at this facility use at least one of these dose optimization techniques: automated exposure control; mA and/or kV adjustment per patient size (includes targeted exams where dose is matched to clinical indication); or iterative reconstruction. Contrast material: ISOVUE 370; Contrast volume: 100 ml; Contrast route: IV; COMPARISON: CT ABD/PEL W/IV ORAL CONTRAS 11/20/2019 7:43 AM FINDINGS: Limitations: Patient motion. Pleural space: Large right-sided pleural effusion with adjacent atelectasis, incompletely visualized. Liver: Cirrhotic liver morphology. There is heterogeneous hepatic attenuation, similar from prior examination. Gallbladder and bile ducts: Distended gallbladder. Cholelithiasis. Pancreas: Decreased attenuation of the head of the pancreas relative to the remainder. Spleen: Splenomegaly measures 14 centimetres. Irregular low density involving the posterior aspect of the spleen, nonspecific however stable from prior examination. Adrenals: Normal. No mass. Kidneys and ureters: 1.4 cm simple left renal cysts, no follow-up recommended. 9 mm simple right renal cysts, no follow-up recommended. No hydronephrosis. Stomach and bowel: There is gastric postoperative change. There is colonic wall thickening greatest involving the ascending colon. Colonic thickening appears decreased from prior examination. Appendix: No evidence of appendicitis. Intraperitoneal space: Moderate to large volume of ascites is increased in the interval. Large right inguinal hernia containing ascites. Vasculature: There are portosystemic collateral vessels. Lymph nodes: Unremarkable. No enlarged lymph nodes. Bladder: Unremarkable as visualized. Reproductive: Unremarkable as visualized. Bones/joints: There are degenerative changes involving the spine. Degenerative change involving the [id number]-left hip joints. Soft tissues: Unremarkable. IMPRESSION: 1. Low attenuation of the pancreatic head, poorly evaluated secondary to ascites. Pancreatitis not excluded. 2. Hepatic cirrhosis with portal hypertension and worsening ascites. 3. Colonic wall thickening greater on the right, overall improved from prior examination, nonspecific colitis versus portal colopathy. 4. Cholelithiasis. 5. Additional findings as above. Electronically signed by: Brandan Stone On 12/06/2019 21:43:31 PM
[2019-12-06] MEDS: MORPHINE 4 MG/ML 1ML VIAL/SYRINGE (J2270) IV PRN (22:33)
[2019-12-06 22:45] VITALS: BP 119/68
[2019-12-06] MEDS: SUCRALFATE 1 GM TAB PO SCH (22:58)
[2019-12-06] MEDS: rifAXIMin 550 MG TAB (XIFAXAN) PO SCH (22:58)
[2019-12-06] MEDS: atenoloL 25 MG TAB PO SCH (22:58)
[2019-12-06] MEDS: APIXABAN 5 MG TAB (ELIQUIS) PO SCH (22:59)
[2019-12-06] MEDS: ACETAMINOPHEN 500 MG TAB PO PRN (22:59)
[2019-12-07] MEDS: MORPHINE 4 MG/ML 1ML VIAL/SYRINGE (J2270) IV PRN (04:47)
[2019-12-07 06:00] VITALS: BP 85/63
[2019-12-07 07:03] LABS: HEMATOCRIT 35.6 % (42.0-52.0); MEAN CORPUSCULAR HEMOGLOBIN 32.2 pg (27.0-33.0); MEAN CORPUSCULAR HGB CONC 33.4 g/dl (32.0-36.5); MEAN CORPUSCULAR VOLUME 96.2 fl (80.0-96.0); WHITE BLOOD COUNT 11.8 10^3/uL (4.0-10.0)
[2019-12-07 07:30] LABS: ALT/SGPT 28 U/L (12-78); BILIRUBIN,TOTAL 3.8 MG/DL (0.2-1.0); BLOOD UREA NITROGEN 18 MG/DL (7-18); CALCIUM LEVEL 7.6 MG/DL (8.5-10.1); CARBON DIOXIDE LEVEL 23 MEQ/L (21-32); CHLORIDE LEVEL 110 MEQ/L (98-107); CREATININE FOR GFR 1.16 MG/DL (0.70-1.30); GLOMERULAR FILTRATION RATE > 60.0 (>56); GLUCOSE, FASTING 84 MG/DL (70-100); MAGNESIUM LEVEL 1.5 MG/DL (1.8-2.4); POTASSIUM SERUM 4.3 MEQ/L (3.5-5.1); SODIUM LEVEL 142 MEQ/L (136-145); TOTAL PROTEIN 4.7 GM/DL (6.4-8.2)
[2019-12-07] MEDS: SUCRALFATE 1 GM TAB PO SCH ×4 (07:30→20:37)
[2019-12-07 07:32] LABS: HEMOGLOBIN 11.9 g/dl (13.5-17.5); PLATELET COUNT, AUTOMATED 94 10^3/uL (150-450)
[2019-12-07] MEDS: MULTIVITAMINS/MINERALS THERAP 1 TAB PO SCH (08:49)
[2019-12-07] MEDS: rifAXIMin 550 MG TAB (XIFAXAN) PO SCH ×2 (08:49→20:37)
[2019-12-07] MEDS: MAGNESIUM OXIDE 400 MG TAB (MAG-OX) PO SCH (08:49)
[2019-12-07] MEDS: APIXABAN 5 MG TAB (ELIQUIS) PO SCH ×2 (08:49→20:37)
[2019-12-07] MEDS: PANTOPRAZOLE 20 MG TAB PO SCH (08:49)
[2019-12-07] MEDS: NS 1,000 ML IV SCH ×2 (08:49→17:22)
[2019-12-07] MEDS: VITAMIN D 1,000 INTERNATIONAL UNITS TABLET PO SCH (08:50)
[2019-12-07] MEDS: CYANOCOBALAMIN 500 MCG TAB PO SCH (08:50)
[2019-12-07] MEDS: SPIRONOLACTONE 50 MG TAB PO SCH (08:50)
[2019-12-07] MEDS: traMADol 50 MG TAB PO PRN ×2 (10:33→20:38)
[2019-12-07 11:05] VITALS: BP 95/46
--- NOTE | 2019-12-07 12:47 | IPNPDOC ---
Subjective Date Seen The patient was seen on 12/07/19. Subjective Chief Complaint/HPI Patient is still has a generalized abdominal pain. He is on clear liquid diet General: Denies: ROS Unobtainable, Chills, Night Sweats, Fatigue, Malaise, Normal Appetite, Other Symptoms Constitutional: Denies: Chills, Fever, Malaise, Night Sweats, Weakness, Fatigue, Weight Loss, Lethargy, Other Skin: Denies: Rash, Lesions, Jaundice, Bruising, Itching, Dry, Breakdown, Nail Changes, Other Pulmonary: Denies: Dyspnea, Cough, Pleuritic Chest Pain, Other Symptoms Cardiovascular: Denies: Chest Pain, Palpitations, Orthopnea, Paroxysmal Noc. Dyspnea, Edema, Lt Headedness, Other Symptoms Gastrointestinal: Reports: Abdominal Pain ( ), Other Symptoms (, distended) Genitourinary: Denies: Dysuria, Frequency, Incontinence, Hematuria, Retention, Other Symptoms Musculoskeletal: Denies: Neck Pain, Back Pain, Shoulder Pain, Arm Pain, Hand Pain, Leg Pain, Foot Pain, Joint Pain, Muscle Pain, Spasms, Other Symptoms Neurological: Denies: Weakness, Numbness, Incoordination, Change in speech, Confusion, Seizures, Other Symptoms Objective Physical Examination General Exam: Positive: Alert, Cooperative Eye Exam: Positive: PERRLA, Conjunctiva & lids normal ENT Exam: Positive: Atraumatic, Mucous membr. moist/pink Neck Exam: Positive: Supple Chest Exam: Positive: Clear to auscultation, Normal air movement Heart Exam: Positive: Rate Normal, Normal S1, Normal S2 Abdomen Exam: Positive: Normal bowel sounds, Soft Extremity Exam: Positive: Normal pulses Skin Exam: Positive: Nl turgor and temperature Neuro Exam: Positive: Strength at 5/5 X4 ext, Sensation Intact, Cranial Nerves 3-12 NL Psych Exam: Positive: Mood NL, Oriented x 3 Assessment /Plan Problems (1) Pancreatitis Status: Acute Problem Text: Patient was admitted with acute pancreatitis. [place] presentation [place] [id number] He is on a clear liquid diet and as per patient, pain is slightly reduced Continue IV fluids and clear liquid diet Repeat lipase level in a.m. (2) Ascites Status: Acute Problem Text: Ascites secondary to nonalcoholic cirrhosis IR consult for paracentesis has been requested Continue all home meds (3) BASS (nonalcoholic steatohepatitis) Status: Chronic Problem Text: Secondary to nonalcoholic steatohepatitis, currently on transplant list. continue outpatient regimen except for Lasix, which will be held at this time. Plan/VTE VTE Prophylaxis Ordered?: Yes VS, I&O, 24H, Fishbone Vital Signs/I&O Vital Signs Date Time Temp Pulse Resp B/P (MAP) Pulse Ox O2 Delivery O2 Flow Rate FiO2 12/07/19 11:07 18 12/07/19 11:05 98.2 62 95/46 Room Air 12/07/19 06:00 92 2.0 I&O- Last 24 Hours up to 6 AM 12/07/19 05:59 Intake Total 1150 ml Output Total 0 ml Balance 1150 ml Laboratory Data 24H LABS Laboratory Tests 2 12/06/19 19:27: Immature Granulocyte % (Auto) 0.3, Neutrophils (%) (Auto) 77.0H, Lymphocytes (%) (Auto) 18.5L, Monocytes (%) (Auto) 2.3, Eosinophils (%) (Auto) 1.3, Basophils (%) (Auto) 0.6, Neutrophils # (Auto) 4.8, Lymphocytes # (Auto) 1.2L, Monocytes # (Auto) 0.1, Eosinophils # (Auto) 0.1, Basophils # (Auto) 0.0, Nucleated Red Blood Cells % (auto) 0.0, Total Bilirubin 3.1H, Direct Bilirubin 2.4H, Aspartate Amino Transf (AST/SGOT) 49H, Alanine Aminotransferase (ALT/SGPT) 22, Alkaline Phosphatase 116, Total Protein 6.3L, Albumin 2.6L, Albumin/Globulin Ratio 0.7, Lipase [id number] 12/06/19 19:38: POC Glucose (Misc Panel) 111H, POC Sodium (Misc Panel) 140, POC Potassium (Misc Panel) 3.9, POC Chloride (Misc Panel) 100, POC Total CO2 (Misc Panel) 24.0, POC Blood Urea Nitrogen (Misc Panel 12, POC Ionized Calcium (Misc Panel) 4.6, POC Creatinine (Misc Panel) 0.7, POC Hematocrit (Misc Panel) 43.0 12/06/19 22:18: Urine Color SYMONE, Urine Appearance CLEAR, Urine pH 6.0, Urine Specific [place] 1.030, Urine Protein NEGATIVE, Urine Glucose (UA) NEGATIVE, Urine Ketones NEGATIVE, Urine Blood NEGATIVE, Urine Nitrite NEGATIVE, Urine Bilirubin NEGATIVE, Urine Urobilinogen 4.0H, Urine Leukocyte Esterase NEGATIVE, Urine WBC (Auto) 2, Urine RBC (Auto) 0, Urine Hyaline Casts (Auto) 0, Urine Bacteria (Auto) NEGATIVE, Urine Squamous Epithelial Cells 0, Urine Mucus (Auto) SMALL, Urine Sperm (Auto) 12/07/19 06:49: Nucleated Red Blood Cells % (auto) 0.0, Total Bilirubin 3.8H, Aspartate Amino Transf (AST/SGOT) 55H, Alanine Aminotransferase (ALT/SGPT) 28, Alkaline Phosphatase 89, Total Protein 4.7#L, Albumin 2.0#L, Albumin/Globulin Ratio 0.7, Immature Platelet Fraction 2.2, Anion Gap 9, Glomerular Filtration Rate > 60.0, Calcium Level 7.6L, Magnesium Level 1.5L CBC/BMP Laboratory Tests 12/06/19 19:27 12/07/19 06:49 FRANDY GIRALDO MD Dec 07, 2019 12:47
[2019-12-07 13:25] VITALS: BP 97/62
[2019-12-07 14:00] VITALS: BP 89/52
[2019-12-07] MEDS ORDERED: MAG SULF 1GM/100ML (MAG RUN) 1 GM in IV 1 EA IV ONE (14:00)
[2019-12-07] MEDS: atenoloL 25 MG TAB PO SCH (21:00)
[2019-12-07 22:00] VITALS: BP 93/53
[2019-12-08] MEDS: NS 1,000 ML IV SCH (02:39)
[2019-12-08 06:00] VITALS: BP 96/57
[2019-12-08 07:05] LABS: BASO % 0.4 % (0.0-1.0); EOS # 0.1 10^3/uL (0.0-0.5); EOS % 0.9 % (0.0-3.0); HEMATOCRIT 31.4 % (42.0-52.0); HEMOGLOBIN 10.4 g/dl (13.5-17.5); LYMPH # 0.4 10^3/uL (1.5-5.0); LYMPH % 5.4 % (24.0-44.0); MEAN CORPUSCULAR HEMOGLOBIN 31.8 pg (27.0-33.0); MEAN CORPUSCULAR HGB CONC 33.1 g/dl (32.0-36.5); MONO # 0.4 10^3/uL (0.0-0.8); MONO % 5.3 % (0.0-5.0); NEUTROPHILS # 6.9 10^3/uL (1.5-8.5); NEUTROPHILS % 86.5 % (36.0-66.0); RED BLOOD COUNT 3.27 10^6/uL (4.30-6.10); WHITE BLOOD COUNT 7.9 10^3/uL (4.0-10.0)
[2019-12-08 07:06] LABS: PLATELET COUNT, AUTOMATED 62 10^3/uL (150-450)
[2019-12-08 07:41] LABS: ALT/SGPT 25 U/L (12-78); BILIRUBIN,TOTAL 1.8 MG/DL (0.2-1.0); BLOOD UREA NITROGEN 30 MG/DL (7-18); CALCIUM LEVEL 7.4 MG/DL (8.5-10.1); CARBON DIOXIDE LEVEL 26 MEQ/L (21-32); CHLORIDE LEVEL 106 MEQ/L (98-107); CREATININE FOR GFR 0.91 MG/DL (0.70-1.30); GLOMERULAR FILTRATION RATE > 60.0 (>56); GLUCOSE, FASTING 80 MG/DL (70-100); LIPASE 392 U/L (73-393); POTASSIUM SERUM 4.5 MEQ/L (3.5-5.1); SODIUM LEVEL 136 MEQ/L (136-145); TOTAL PROTEIN 4.7 GM/DL (6.4-8.2)
[2019-12-08] MEDS: VITAMIN D 1,000 INTERNATIONAL UNITS TABLET PO SCH (09:05)
[2019-12-08] MEDS: MAGNESIUM OXIDE 400 MG TAB (MAG-OX) PO SCH (09:05)
[2019-12-08] MEDS: APIXABAN 5 MG TAB (ELIQUIS) PO SCH ×2 (09:05→21:41)
[2019-12-08] MEDS: CYANOCOBALAMIN 500 MCG TAB PO SCH (09:05)
[2019-12-08] MEDS: MULTIVITAMINS/MINERALS THERAP 1 TAB PO SCH (09:05)
[2019-12-08] MEDS: SUCRALFATE 1 GM TAB PO SCH ×4 (09:05→21:41)
[2019-12-08] MEDS: PANTOPRAZOLE 20 MG TAB PO SCH (09:05)
[2019-12-08] MEDS: SPIRONOLACTONE 50 MG TAB PO SCH (09:05)
[2019-12-08] MEDS: rifAXIMin 550 MG TAB (XIFAXAN) PO SCH ×2 (09:05→21:41)
--- NOTE | 2019-12-08 10:37 | IPNPDOC ---
Subjective Date Seen The patient was seen on 12/08/19. Subjective Chief Complaint/HPI Gary is feeling much better and asymptomatic at the present time. Wishes to eat regular diet General: Denies: ROS Unobtainable, Chills, Night Sweats, Fatigue, Malaise, Normal Appetite, Other Symptoms Pulmonary: Denies: Dyspnea, Cough, Pleuritic Chest Pain, Other Symptoms Cardiovascular: Denies: Chest Pain, Palpitations, Orthopnea, Paroxysmal Noc. Dyspnea, Edema, Lt Headedness, Other Symptoms Gastrointestinal: Denies: Nausea, Vomiting, Abdominal Pain, Diarrhea, Constipation, Melena, Hematochezia, Other Symptoms Genitourinary: Denies: Dysuria, Frequency, Incontinence, Hematuria, Retention, Other Symptoms Musculoskeletal: Denies: Neck Pain, Back Pain, Shoulder Pain, Arm Pain, Hand Pain, Leg Pain, Foot Pain, Joint Pain, Muscle Pain, Spasms, Other Symptoms Neurological: Denies: Weakness, Numbness, Incoordination, Change in speech, Confusion, Seizures, Other Symptoms Objective Physical Examination General Exam: Positive: Alert, Cooperative Neck Exam: Positive: Supple Chest Exam: Positive: Clear to auscultation, Normal air movement Heart Exam: Positive: Rate Normal, Normal S1, Normal S2 Abdomen Exam: Positive: Normal bowel sounds, Soft Extremity Exam: Positive: Normal pulses Skin Exam: Positive: Nl turgor and temperature Assessment /Plan Problems (1) Pancreatitis Status: Acute Problem Text: Patient was admitted with acute pancreatitis. [place] [id number] Initially patient was started on clear liquid diet and IV fluids And management was continued He improved very well. His serum lipase level today is 392 with magnesium of 2.0 Patient is currently asymptomatic and I will advance his diet to regular diet and monitor him for 24 hours Can probably will be discharged home tomorrow after paracentesis Out of bed ad kristina. (2) Ascites Status: Acute Problem Text: Ascites secondary to nonalcoholic cirrhosis IR consult for paracentesis has been requested Hopefully patient will be discharged home after paracentesis tomorrow and he will follow with us PCP in one week (3) BASS (nonalcoholic steatohepatitis) Status: Chronic Problem Text: Secondary to nonalcoholic steatohepatitis, currently on transplant list. continue outpatient regimen except for Lasix, which will be held at this time. Plan/VTE VTE Prophylaxis Ordered?: Yes VS, I&O, 24H, Fishbone Vital Signs/I&O Vital Signs Date Time Temp Pulse Resp B/P (MAP) Pulse Ox O2 Delivery O2 Flow Rate FiO2 12/08/19 06:00 98.1 58 16 96/57 (70) 98 Nasal Cannula 2.0 I&O- Last 24 Hours up to 6 AM 12/08/19 06:00 Intake Total 840 ml Output Total 400 ml Balance 440 ml Laboratory Data 24H LABS Laboratory Tests 2 12/08/19 06:26: Immature Granulocyte % (Auto) 1.5, Neutrophils (%) (Auto) 86.5H, Lymphocytes (%) (Auto) 5.4L, Monocytes (%) (Auto) 5.3H, Eosinophils (%) (Auto) 0.9, Basophils (%) (Auto) 0.4, Neutrophils # (Auto) 6.9, Lymphocytes # (Auto) 0.4L, Monocytes # (Auto) 0.4, Eosinophils # (Auto) 0.1, Basophils # (Auto) 0.0, Nucleated Red Blood Cells % (auto) 0.0, Anion Gap 4L, Glomerular Filtration Rate > 60.0, Calcium Level 7.4L, Magnesium Level 2.0, Total Bilirubin 1.8#H, Aspartate Amino Transf (AST/SGOT) 50H, Alanine Aminotransferase (ALT/SGPT) 25, Alkaline Phosphatase 65, Total Protein 4.7L, Albumin 2.0L, Albumin/Globulin Ratio 0.7, Lipase 392 CBC/BMP Laboratory Tests 12/08/19 06:26 FRANDY GIRALDO MD Dec 08, 2019 10:37
[2019-12-08] MEDS: ACETAMINOPHEN 500 MG TAB PO PRN ×2 (13:05→21:41)
[2019-12-08 14:58] VITALS: BP 100/56
[2019-12-08 21:00] VITALS: BP 96/46
[2019-12-08] MEDS: atenoloL 25 MG TAB PO SCH (21:00)
[2019-12-08 21:22] VITALS: BP 97/48
[2019-12-08] MEDS: traMADol 50 MG TAB PO PRN (21:42)
[2019-12-09 05:45] LABS: BASO % 0.8 % (0.0-1.0); EOS # 0.1 10^3/uL (0.0-0.5); EOS % 2.5 % (0.0-3.0); HEMOGLOBIN 10.3 g/dl (13.5-17.5); LYMPH # 0.4 10^3/uL (1.5-5.0); LYMPH % 10.3 % (24.0-44.0); MEAN CORPUSCULAR HEMOGLOBIN 31.6 pg (27.0-33.0); MEAN CORPUSCULAR HGB CONC 33.2 g/dl (32.0-36.5); MEAN CORPUSCULAR VOLUME 95.1 fl (80.0-96.0); MONO # 0.3 10^3/uL (0.0-0.8); MONO % 6.9 % (0.0-5.0); NEUTROPHILS # 2.8 10^3/uL (1.5-8.5); NEUTROPHILS % 78.7 % (36.0-66.0); PLATELET COUNT, AUTOMATED 55 10^3/uL (150-450); RED BLOOD COUNT 3.26 10^6/uL (4.30-6.10); WHITE BLOOD COUNT 3.6 10^3/uL (4.0-10.0)
[2019-12-09 06:02] VITALS: BP 104/58
[2019-12-09 06:13] LABS: BLOOD UREA NITROGEN 19 MG/DL (7-18); CALCIUM LEVEL 7.6 MG/DL (8.5-10.1); CARBON DIOXIDE LEVEL 27 MEQ/L (21-32); CHLORIDE LEVEL 108 MEQ/L (98-107); CREATININE FOR GFR 0.55 MG/DL (0.70-1.30); GLOMERULAR FILTRATION RATE > 60.0 (>56); GLUCOSE, FASTING 75 MG/DL (70-100); LIPASE 236 U/L (73-393); POTASSIUM SERUM 4.5 MEQ/L (3.5-5.1); SODIUM LEVEL 140 MEQ/L (136-145)
[2019-12-09 08:42] LABS: INR 1.94; PROTHROMBIN TIME 21.9 SECONDS (11.8-14.0)
[2019-12-09] MEDS: CYANOCOBALAMIN 500 MCG TAB PO SCH (09:00)
[2019-12-09] MEDS ORDERED: MOM 30ML SUSPENSION UDC PO SCH (09:00)
[2019-12-09] MEDS ORDERED: PANTOPRAZOLE 40MG TAB (PROTONIX) PO SCH (09:00)
[2019-12-09] MEDS ORDERED: DOCUSATE SODIUM 100 MG CAP PO SCH (09:00)
[2019-12-09] MEDS: MAGNESIUM OXIDE 400 MG TAB (MAG-OX) PO SCH (09:25)
[2019-12-09] MEDS: SUCRALFATE 1 GM TAB PO SCH ×2 (09:26→13:05)
[2019-12-09] MEDS: SPIRONOLACTONE 50 MG TAB PO SCH (09:26)
[2019-12-09] MEDS: VITAMIN D 1,000 INTERNATIONAL UNITS TABLET PO SCH (09:26)
[2019-12-09] MEDS: rifAXIMin 550 MG TAB (XIFAXAN) PO SCH (09:26)
[2019-12-09] MEDS: MULTIVITAMINS/MINERALS THERAP 1 TAB PO SCH (09:27)
[2019-12-09] MEDS ORDERED: flumazeniL 0.5 MG/5 ML VIAL As Ordered ONE (10:41)
[2019-12-09] MEDS ORDERED: MIDAZOLAM INJ 2MG/2ML VIAL (J2250 PER 1MG) As Ordered ONE (10:41)
[2019-12-09] MEDS ORDERED: LIDOCAINE 1% MDV 20ML VIAL As Ordered ONE (10:42)
[2019-12-09 10:48] VITALS: BP 106/67
[2019-12-09] MEDS ORDERED: ONDANSETRON 4MG/2ML VIAL IV PRN (11:00)
[2019-12-09 11:45] VITALS: BP 100/60
[2019-12-09] MEDS ORDERED: PERCOCET 5MG/325MG TAB PO PRN ×2 (11:45)
[2019-12-09] MEDS ORDERED: LEVALBUTEROL 1.25 MG/0.5 ML CONCENTRATE NEB NEB PRN (11:45)
[2019-12-09] MEDS ORDERED: NORCO, ANEXSIA 5/325MG TABLET (HYDROcodone/ACETAMINOPHEN) PO PRN (11:45)
[2019-12-09] MEDS ORDERED: BISACODYL 10 MG SUPP PR PRN (11:45)
--- NOTE | 2019-12-09 11:59 | IPNPDOC ---
Subjective Date Seen The patient was seen on 12/09/19. Subjective Chief Complaint/HPI Patient is comfortable in no distress. Paracentesis could not be done as patient is on a liquid and will be put on hold for 2 days, as per radiology Also radiology called me to inform that patient has about 2 L of pleural effusion on right side with possible lung entrapment, but patient does not offer any respiratory complaints General: Denies: ROS Unobtainable, Chills, Night Sweats, Fatigue, Malaise, Normal Appetite, Other Symptoms Constitutional: Denies: Chills, Fever, Malaise, Night Sweats, Weakness, Fatigue, Weight Loss, Lethargy, Other Skin: Denies: Rash, Lesions, Jaundice, Bruising, Itching, Dry, Breakdown, Nail Changes, Other Pulmonary: Denies: Dyspnea, Cough, Pleuritic Chest Pain, Other Symptoms Cardiovascular: Denies: Chest Pain, Palpitations, Orthopnea, Paroxysmal Noc. Dyspnea, Edema, Lt Headedness, Other Symptoms Gastrointestinal: Denies: Nausea, Vomiting, Abdominal Pain, Diarrhea, Constip ation, Melena, Hematochezia, Other Symptoms Musculoskeletal: Denies: Neck Pain, Back Pain, Shoulder Pain, Arm Pain, Hand Pain, Leg Pain, Foot Pain, Joint Pain, Muscle Pain, Spasms, Other Symptoms Neurological: Denies: Weakness, Numbness, Incoordination, Change in speech, Confusion, Seizures, Other Symptoms Objective Physical Examination General Exam: Positive: Alert, Cooperative Neck Exam: Positive: Supple Chest Exam: Positive: Normal air movement, Diminished (. Right breast) Heart Exam: Positive: Rate Normal, Normal S1, Normal S2 Abdomen Exam: Positive: Normal bowel sounds, Soft Extremity Exam: Positive: Normal pulses Skin Exam: Positive: Nl turgor and temperature Assessment /Plan Problems (1) Pancreatitis Status: Resolved Problem Text: Patient was admitted with acute pancreatitis. [place] [id number] Initially patient was started on clear liquid diet and IV fluids He has improved very well. 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 Will continue all patient's home medications (4) Hx of pulmonary embolus Status: Chronic Problem Text: History of pulmonary embolus in past, on anticoagulation with eliquis Eliquis on hold for 2 days Then be restarted once the thoracentesis and paracentesis are complete (5) Pleural effusion Status: Acute Problem Text: , Massive right pleural effusion which most likely secondary to liver cirrhosis Dr. Peraza was called and discussed Will transfer patient to PCU with scale mechanic And the patient will probably require chest tube placement Further recommendation as per thoracic surgery Plan/VTE VTE Prophylaxis Ordered?: Yes VS, I&O, 24H, Fishbone Vital Signs/I&O Vital Signs Date Time Temp Pulse Resp B/P (MAP) Pulse Ox O2 Delivery O2 Flow Rate FiO2 12/09/19 11:45 98.0 58 18 100/60 (73) 100 12/09/19 06:02 Nasal Cannula 2.0 I&O- Last 24 Hours up to 6 AM 12/09/19 06:00 Intake Total 750 ml Output Total 1550 ml Balance -800 ml Laboratory Data 24H LABS Laboratory Tests 2 12/09/19 05:31: Immature Granulocyte % (Auto) 0.8, Neutrophils (%) (Auto) 78.7H, Lymphocytes (%) (Auto) 10.3L, Monocytes (%) (Auto) 6.9H, Eosinophils (%) (Auto) 2.5, Basophils (%) (Auto) 0.8, Neutrophils # (Auto) 2.8, Lymphocytes # (Auto) 0.4L, Monocytes # (Auto) 0.3, Eosinophils # (Auto) 0.1, Basophils # (Auto) 0.0, Nucleated Red Blood Cells % (auto) 0.0, Immature Platelet Fraction 2.5, Anion Gap 5L, Glomerular Filtration Rate > 60.0, Calcium Level 7.6L, Lipase 236 12/09/19 08:12: Prothrombin Time 21.9H, Prothromb Time International Ratio 1.94 CBC/BMP Laboratory Tests 12/09/19 05:31 FARNDY GIRALDO MD Dec 09, 2019 11:59
[2019-12-09] MEDS ORDERED: KETOROLAC 30 MG/ML 1ML VIAL IV SCH (12:00)
--- NOTE | 2019-12-09 12:00 | RO ---
DATE OF PROCEDURE: 12/09/2019 PREPROCEDURE DIAGNOSIS: Right pleural effusion with extensive lung compression. POSTPROCEDURE DIAGNOSIS: Right pleural effusion with extensive lung compression. PROCEDURE: Insertion of right lateral posterior chest tube with moderate sedation. SURGEON: Carlos Peraza MD FRANCHISE SALES MANAGER: ANESTHESIA: FINDINGS: The chest tube drained more than 3000 mL. We have sent for requisite studies of cytologies, bacteriologies, chemistries, and hematologies. DESCRIPTION OF PROCEDURE: Under satisfactory sedation achieved with 3 mg of Versed, the patient was prepped and draped in the usual sterile fashion. An incision was made over the approximate sixth intercostal space. A tunnel was created into the chest without difficulty. A #24 chest tube was placed. The chest tube was secured to the chest wall with #2 Tevdek suture and connected to the Pleur-evac where it drained over 3000 mL. The patient tolerated the procedure well and a chest x-ray is pending.
--- NOTE | 2019-12-09 12:56 | CR ---
DATE OF CONSULTATION: 12/06/2019 The patient was seen at the request of Dr. Welch of the hospitalist service for a large right pleural effusion. HISTORY OF PRESENT ILLNESS: The patient is a 59-year-old white male with known nonalcoholic steatohepatitis who has had multiple bouts of pancreatitis. About 4 days ago, he started to experience abdominal pain with nausea and vomiting occasioned by movement and sitting up. He was brought to the hospital where he was found to have a lipase of over 23,000. He was placed nothing by mouth and started with intravenous (IV) hydration. He does not complain of shortness of breath and is able to ambulate around his house without difficulty. He does not venture out of his house and so does minimal activity. There is no orthopnea, no paroxysmal nocturnal dyspnea. He denies cough with sputum production or fever, chills or sweats. He states that he has not been eating very well. He is status post a gastric bypass in 2017. PAST MEDICAL HISTORY: 1. The above recurrent pancreatitis. 2. Liver cirrhosis. 3. Nonalcoholic fatty liver disease (BASS). 4. Pulmonary embolism approximately 2 years ago. 5. Supraventricular tachycardia (SVT). PAST SURGICAL HISTORY: Gastric bypass as noted above. ALLERGIES: NONE. MEDICATIONS AT HOME: - Eliquis 5 mg by mouth twice a day - atenolol 25 mg at bedtime - vitamin B12 500 mg every day - vitamin B3 1000 units every day - Lasix 40 mg every day - lactulose 30 mL twice a day - magnesium oxide 400 mg every day - vitamins one tablet every day - omeprazole 40 mg twice a day - rifaximin 550 mg twice a day - spironolactone 100 mg every day - ursodiol 250 mg twice a day - He is also on tramadol 150 mg by mouth as needed pain. TRAVEL HISTORY: None outside the [facility]. 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 EXPOSURES: No dogs, birds, but does have two cats. No prior exposure to tuberculosis. HABITS: Does not smoke, does not drink, and does not indulge in illicit drugs. REVIEW OF SYSTEMS: Constitutional: See HPI. Without fevers, chills, sweats, or night sweats. Eyes: Without diplopia. Without amaurosis fugax. Without prior jaundice. Nose: Without epistaxis. Mouth: Has his own teeth. Respiratory: See HPI. Cardiac: Without prior myocardial infarctions. Denies intermittent claudication, orthopnea, or paroxysmal nocturnal dyspnea. Denies leg edema. Gastrointestinal (GI): See HPI. With nausea and vomiting and abdominal pain. Genitourinary (): Without dysuria, hematuria, or history of renal stones. Endocrine: Without diabetes. Without thyroid disease. Psychiatric: Without pathological anxieties, depression, or psychoses. Neurologic: Without paresthesias, paralysis, or prior seizures. PHYSICAL EXAMINATION: Well-developed, well-nourished, but chronically ill looking 59-year-old white male. Vital signs: Temperature is 98.4, pulse of 55 in a sinus rhythm, respiratory rate of 17 20 without the use of accessory muscles, who is 98% saturated on 2 liters nasal cannula, and his blood pressure is 104/58. Head: Normocephalic. Eyes: Pupils equal and reactive to light. Extraocular motor intact. Sclerae nonicteric. Nose: Without deformity. Mouth: Shows the mucous membranes to be pink and moist. Lips and commissures without lesions. His teeth look to be in good repair. Neck is supple. There is no jugular venous distention, no subcutaneous emphysema. Trachea is midline. There is no lymphadenopathy or thyromegaly. He has 2+ carotid upstrokes. Lungs: Show dull percussion note throughout the entire right hemithorax. He has E-A egophony on the right hemithorax and markedly decreased breath sounds. Left side shows normal vesicular sounds without wheezes, rhonchi, or rales. Cardiac exam is without murmurs, clicks, gallops, or rubs. I cannot feel his point of maximal impulse (PMI). S1 and S2 are normal. Abdomen: Soft, nontender. Bowel sounds are positive. There is no hepatomegaly. No costovertebral angle (CVA) tenderness. Extremities: Show no pretibial edema. No calf tenderness. No differential swelling of the upper extremities. Skin is warm, dry, and perfused without cyanosis or mottling. Neurologic: Shows II-XII intact along with gross motor and gross sensation intact. Psychiatric: Shows him to be awake and alert, oriented times three with appropriate mood and affect, and conversational. His white count today is 3.6. Hemoglobin and hematocrit are 10.3 and 31.0, respectively with a platelet count of 55. Differential shows 78% neutrophils, 10% lymphocytes, 6% monocytes. There were no immature forms. No toxic granulations. His chemistries show essentially normal electrolytes with a BUN and creatinine of 19 and 0.55, and a glucose 75 and a calcium of 7.6. Lipase is 236 today compared to 23,282 on admission on 12/06/2019. Urinalysis shows 4+ urobilinogen but negative leukocyte esterase. PT/INR 21.9 and 1.94, respectively. There is no chest x-ray this admission. There is no CAT scan of his this admission. He does have a CAT scan of his abdomen and pelvis. The portion that delineates the chest shows a very large pleural effusion with right lower lobe and middle lobe lung compression, and I can see part of the right upper lobe which is also compressed. There is no pericardial effusion. I cannot discern lymphadenopathy as the CAT scan does not go above the nina. It looks as though he has a modest shift to the left of his mediastinum. Adrenals have a normal configuration. I do not see any lesions compatible with masses or tumors in the liver. He does have some ascites. IMPRESSION: 1. Pancreatitis. 2. Metastatic pleural effusion secondary to pancreatitis and cirrhosis. 3. Cirrhosis. 4. Complete lung atelectasis and compression. 5. Status post gastric bypass. 6. History of pulmonary embolism, on Eliquis. 7. Nonalcoholic steatohepatitis giving rise to his liver cirrhosis. 8. History of supraventricular tachycardia, unknown rhythm. PLAN/DISCUSSION: His most pressing problem now is his very large pleural effusion with the large compression and mediastinal shift. I will therefore place a chest tube under moderate sedation. It should be noted that his liver function tests show an aspartate aminotransferase (AST) of 50 and alanine transaminase (ALT) of 25. The AST is only marginally elevated with an upper limit of normal of 37. Albumin 2.0.
--- NOTE | 2019-12-09 13:37 | REP ---
PORTABLE CHEST X-RAY: Single view. HISTORY: Chest tube insertion. FINDINGS: A right pleural drainage catheter is seen in place in the right chest. The right pleural effusion is evacuated. There is no evidence of pneumothorax. The heart is mildly prominent in size. Pulmonary vasculature is a little cephalized. The left lung is clear. No definite infiltrate. IMPRESSION: Right chest tube in place. Mildly prominent heart and cephalized vasculature. Otherwise negative. Electronically Signed by Ramsey Dickerson MD 12/09/2019 02:58 P
[2019-12-09 13:45] LABS: PH BODY FLUID 7.705 UNITS (NOT ESTABLISHED); SOURCE, BODY FLUID pH PLEURAL
[2019-12-09 13:50] LABS: APPEARANCE, BODY FLUID CLOUDY (CLEAR); PLEURAL FL COLOR AMBER (COLORLESS); SOURCE, BODY FLUID PLEURAL
[2019-12-09] MEDS ORDERED: LEVALBUTEROL 1.25 MG/0.5 ML CONCENTRATE NEB NEB SCH (14:00)
[2019-12-09 14:12] LABS: AMYLASE, BODY FLUID 43 U/L (NOT ESTABLISHED); CHOLESTEROL, BODY FLUID < 50 MG/DL (NOT ESTABLISHED); LDH, BODY FLUID 73 U/L (NOT ESTABLISHED); SOURCE, BODY FLUID ALBUMIN PLEURAL; SOURCE, BODY FLUID AMYLASE PLEURAL; SOURCE, BODY FLUID CHOL PLEURAL; SOURCE, BODY FLUID GLUCOSE PLEURAL; SOURCE, BODY FLUID LDH PLEURAL; SOURCE, BODY FLUID TOT PROTEIN PLEURAL; SOURCE, BODY FLUID TRIG PLEURAL; TOTAL PROTEIN, BODY FLUID 1.4 G/DL (NOT ESTABLISHED); TRIGLYCERIDE, BODY FLUID 16 MG/DL (NOT ESTABLISHED)
[2019-12-09] MEDS ORDERED: PERCOCET PO (14:40)
[2019-12-09] MEDS ORDERED: ONDA4INJ4 IV (14:40)
[2019-12-09] MEDS ORDERED: MORP4INJ2 IV (14:40)
[2019-12-09] MEDS ORDERED: LEVA12INH NEB ×2 (14:40)
[2019-12-09] MEDS ORDERED: Ketorolac Tromethamine IV (14:40)
[2019-12-09] MEDS ORDERED: HYDR-3715 PO (14:40)
--- NOTE | 2019-12-09 14:47 | DS.PDOC ---
Discharge Summary General Date of Admission Dec 06, 2019 at 21:01 Date of Discharge 12/09/19 Discharge Summary PROCEDURES PERFORMED DURING STAY: None. ADMITTING DIAGNOSES: 1. Acute pancreatitis. DISCHARGE DIAGNOSES: Acute pancreatitis, ascites,BASS, large right pleural effusion status post chest tube placement COMPLICATIONS/CHIEF COMPLAINT: Pancreatitis. HISTORY OF PRESENT ILLNESS: HISTORY OF PRESENT ILLNESS: 59-year-old male with past medical history of liver cirrhosis secondary to BASS, pulmonary embolism on Eliquis, SVT and recurrent pancreatitis presents to the hospital with abdominal pain. Patient was admitted to weeks ago for acute pancreatitis, now reports acute abdominal pain which started at 3 PM, with associated nausea and vomiting. He has had multiple episodes of pancreatitis, appear to be gallstone pancreatitis, reports that he is a poor candidate for surgical intervention. He denies any fever, chest pain, shortness of breath or diarrhea.. HOSPITAL COURSE: Acute pancreatitis: Resolved Patient was admitted with acute pancreatitis. [place] on presentation was [id number] Initially patient was started on clear liquid diet and IV fluids He has improved very well. 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 Spoke with Bernie Rangel at the transplant center [facility]. Hopefully patient will be accepted there today for liver transplant procedure. We will arrange a air ambulance for transfer was the bed is available Pulmonary embolus: History of pulmonary embolus in past, on anticoagulation with eliquis Eliquis on hold for 2 days Then be restarted once the thoracentesis and paracentesis are complete Pleural effusion: Massive right pleural effusion which most likely secondary to liver cirrhosis Patient seen and evaluated by Dr. Peraza Patient was transferred to PCU with telemetry for the chest tube placement Cardiac Dr. Peraza 3 L of fluid was drained out without any complications Since patient being transferred to [facility] Dr. Peraza were called and was informed about the transfer. Further care will be taken at [facility] by the local thoracic surgeon. DISCHARGE MEDICATIONS: Please see below. ALLERGIES: Please see below. PHYSICAL EXAMINATION ON DISCHARGE: VITAL SIGNS: Please see below. GENERAL: Within normal limits HEENT: PERRLA. Extraocular muscles intact NECK: Supple. Negative JVD, negative lymphadenopathy CARDIOVASCULAR EXAMINATION: S1, S2, regular RESPIRATORY EXAMINATION: Clear to A&P. Chest tube placed on right side ABDOMINAL EXAMINATION: Benign EXTREMITIES: No clubbing, cyanosis, edema SKIN: Normal NEUROLOGICAL EXAMINATION: . No focal motor sensory deficit PSYCHIATRIC EXAMINATION: Normal LABORATORY DATA: Please see below. IMAGING: CT abdomen and pelvis:1. Low attenuation of the pancreatic head, poorly evaluated secondary to ascites. Pancreatitis not excluded. 2. Hepatic cirrhosis with portal hypertension and worsening ascites. 3. Colonic wall thickening greater on the right, overall improved from prior examination, nonspecific colitis versus portal colopathy. 4. Cholelithiasis. 5. Additional findings as above. PROGNOSIS: Unknown ACTIVITY: As tolerated. DIET: Nothing by mouth DISCHARGE PLAN: Transferred to [facility] for liver transplant DISPOSITION: . Transferred to [facility] for liver transplant DISCHARGE INSTRUCTIONS: 1. As per discharge instructions. ITEMS TO FOLLOWUP ON ON OUTPATIENT: 1. As per discharge instructions. DISCHARGE CONDITION: Stable. TIME SPENT ON DISCHARGE: 40 minutes. Vital Signs/I&Os Vital Signs Date Time Temp Pulse Resp B/P (MAP) Pulse Ox O2 Delivery O2 Flow Rate FiO2 12/09/19 11:45 98.0 58 18 100/60 (73) 100 12/09/19 06:02 Nasal Cannula 2.0 I&O- Last 24 Hours up to 6 AM 12/09/19 06:00 Intake Total 750 ml Output Total 1550 ml Balance -800 ml Laboratory Data Labs 24H Laboratory Tests 2 12/09/19 05:31: Immature Granulocyte % (Auto) 0.8, Neutrophils (%) (Auto) 78.7H, Lymphocytes (%) (Auto) 10.3L, Monocytes (%) (Auto) 6.9H, Eosinophils (%) (Auto) 2.5, Basophils (%) (Auto) 0.8, Neutrophils # (Auto) 2.8, Lymphocytes # (Auto) 0.4L, Monocytes # (Auto) 0.3, Eosinophils # (Auto) 0.1, Basophils # (Auto) 0.0, Nucleated Red Blood Cells % (auto) 0.0, Immature Platelet Fraction 2.5, Anion Gap 5L, Glomerular Filtration Rate > 60.0, Calcium Level 7.6L, Lipase 236 12/09/19 08:06: Lactate Dehydrogenase 200 12/09/19 08:12: Prothrombin Time 21.9H, Prothromb Time International Ratio 1.94 12/09/19 11:45: Body Fluid pH 7.705, Body Fluid pH Source PLEURAL, Body Fluid WBC (Auto) 64H, Body Fluid RBC (Auto) 14, Body Fluid Mononuclear Cells % Auto 50.0H, Fluid Polym orphonuclear Cell % Auto 50.0H, Body Fluid Glucose Source PLEURAL, Body Fluid Glucose 92, Body Fluid Protein Source PLEURAL, Body Fluid Total Protein 1.4, Body Fluid Albumin Source PLEURAL, Body Fluid Albumin 0.7, Body Fluid LDH Source PLEURAL, Body Fluid Lactate Dehydrogenase 73, Body Fluid Amylase Source PLEURAL, Body Fluid Amylase 43, Body Fluid Cholesterol < 50, Body Fluid Cholesterol Source PLEURAL, Body Fluid Triglyceride Source PLEURAL, Body Fluid Triglycerides 16, Pleural Fluid Source PLEURAL, Pleural Fluid Color SYMONE, Pleural Fluid Appearance CLOUDY CBC/BMP Laboratory Tests 12/09/19 05:31 Microbiology Microbiology 12/09/19 Acid Fast Stain, Received Pending 12/09/19 Mycobacterial Culture, Received Pending 12/09/19 Fungal Smear, Received Pending 12/09/19 Fungal Culture, Received Pending 12/09/19 Gram Stain - Final, Resulted 12/09/19 Anaerobic Culture, Resulted Pending 12/09/19 Body Fluid Culture, Received Pending Discharge Medications Scheduled Atenolol (Atenolol) 25 Mg Tablet, 25 MG PO QHS, (Reported) Cholecalciferol (Vitamin D3) (Vitamin D3) 1,000 Unit Tablet, 1,000 UNITS PO DA ABHINAV, (Reported) Cyanocobalamin (Vitamin B-12) (Vitamin B-12) 500 Mcg Tablet, 500 MCG PO DAILY, (Reported) Furosemide (Furosemide) 20 Mg Tablet, 40 MG PO DAILY, (Reported) Lactulose (Lactulose) 10 Gm/15 Ml Solution, 30 ML PO BID, (Reported) Levalbuterol Hydrochloride (Xopenex Concentrate) 1.25 Mg/0.5 Ml Vial.neb, 1.25 MG NEB RQ6H Magnesium Oxide (Magnesium Oxide) 400 Mg Tablet, 400 MG PO DAILY, (Reported) Multivitamins (Thera M Plus Tablet) 1 Each Tablet, 1 TAB PO DAILY, (Reported) Omeprazole (Omeprazole) 40 Mg Capsule.dr, 40 MG PO BID, (Reported) Rifaximin (Xifaxan) 550 Mg Tablet, 550 MG PO BID, (Reported) Spironolactone (Spironolactone) 50 Mg Tablet, 100 MG PO DAILY, (Reported) Sucralfate (Carafate) 1 Gm Tablet, 1 GM PO ACHS, (Reported) 4 times per day take on an empty stomach Ursodiol (Ursodiol) 250 Mg Tablet, 250 MG PO BID, (Reported) Vitamin E (Dl,Tocopheryl Acet) (Vitamin E) 400 Unit Capsule, 400 UNIT PO DAILY, (Reported) [Ketorolac Tromethamine] 30 MG/ML INJ, 30 MG IV Q6H Scheduled PRN Acetaminophen (Acetaminophen) 500 Mg Tablet, 500 MG PO Q6H PRN for PAIN, (Reported) Cetirizine HCl (Cetirizine HCl) 10 Mg Tablet, 10 MG PO DAILY PRN for ALLERGIES, (Reported) Hydrocodone/Acetaminophen (Hydrocodone-Acetamin 5-325 mg) 1 Each Tablet, 1 TAB PO Q3H PRN for MILD PAIN (PS 1-4) Levalbuterol Hydrochloride (Xopenex Concentrate) 1.25 Mg/0.5 Ml Vial.neb, 1.25 MG NEB Q2HP PRN for WHEEZING Morphine Sulfate (Morphine Sulfate) 4 Mg/1 Ml Vial, 2 MG IV Q4HP PRN for SEVERE PAIN (PS 8-10) Ondansetron (Ondansetron Odt) 4 Mg Tab.rapdis, 4 MG PO Q6H PRN for NAUSEA, (Reported) Ondansetron HCl/Pf (Ondansetron HCl 4 mg/2 ml Vial) 4 Mg/2 Ml Vial, 4 MG IV Q4HP PRN for NAUSEA OR VOMITING Oxycodone/Acetaminophen (Oxycodone-Acetaminophen 5-325) 1 Each Tablet, 2 TAB PO Q4H PRN for SEVERE PAIN (PS 8-10) Oxycodone/Acetaminophen (Oxycodone-Acetaminophen 5-325) 1 Each Tablet, 1 TAB PO Q4H PRN for MODERATE PAIN (PS 5-7) Tramadol HCl (Tramadol HCl) 50 Mg Tablet, 150 MG PO BID PRN for PAIN, (Reported) Allergies Coded Allergies: No Known Allergies (Unverified , 07/12/19) FRANDY GIRALDO MD Dec 09, 2019 14:47
[2019-12-09 15:33] VITALS: BP 101/60
== END 2019-12-09 16:55 | disposition short-term general hospital (02) | DRG 282 ==
LOC: M ED 19:01 → M ED INP 21:01 → ENRESERV 21:44 → M MS5PR 22:44 → M PCU 12-09 10:28
PROVIDERS: ADMIT Internal Medicine; ATTEND Internal Medicine
PROC: 30233J1 Transfusion of Nonautologous Serum Albumin into Peripheral Vein, Percutaneous Approach (ICD-10-PCS; 2019-12-07)
PROC: 0W9900Z Drainage of Right Pleural Cavity with Drainage Device, Open Approach (ICD-10-PCS; principal; 2019-12-09)
DX: K85.90 Acute pancreatitis without necrosis or infection, unspecified (principal); J90 Pleural effusion, not elsewhere classified; R18.8 Other ascites; I47.1 Supraventricular tachycardia; K74.60 Unspecified cirrhosis of liver; K75.81 Nonalcoholic steatohepatitis (NASH); Z86.711 Personal history of pulmonary embolism; Z98.84 Bariatric surgery status; Z79.01 Long term (current) use of anticoagulants; Z79.899 Other long term (current) drug therapy; J98.11 Atelectasis

== ENCOUNTER → 2019-12-17 | Outpatient (CLI) | payer OTHER ==
[~2019-12-17] MED LIST changes: +HYDR-3715 PO; +Ketorolac Tromethamine IV; +LEVA12INH NEB; +MORP4INJ2 IV; +ONDA4INJ4 IV; +PERCOCET PO
[2019-12-17 13:19] LABS: HEMATOCRIT 35.6 % (42.0-52.0); HEMOGLOBIN 11.9 g/dl (13.5-17.5); MEAN CORPUSCULAR HEMOGLOBIN 31.1 pg (27.0-33.0); MEAN CORPUSCULAR HGB CONC 33.4 g/dl (32.0-36.5); PLATELET COUNT, AUTOMATED 187 10^3/uL (150-450); RED BLOOD COUNT 3.83 10^6/uL (4.30-6.10); WHITE BLOOD COUNT 5.2 10^3/uL (4.0-10.0)
[2019-12-17 13:30] LABS: INR 1.64; PROTHROMBIN TIME 19.2 SECONDS (11.8-14.0)
[2019-12-17 13:52] LABS: ALBUMIN 2.3 GM/DL (3.2-5.2); ALT/SGPT 17 U/L (12-78); BILIRUBIN,TOTAL 1.7 MG/DL (0.2-1.0); BLOOD UREA NITROGEN 9 MG/DL (7-18); CALCIUM LEVEL 7.9 MG/DL (8.5-10.1); CARBON DIOXIDE LEVEL 28 MEQ/L (21-32); CHLORIDE LEVEL 108 MEQ/L (98-107); CREATININE FOR GFR 0.55 MG/DL (0.70-1.30); GLOMERULAR FILTRATION RATE > 60.0 (>56); GLUCOSE, FASTING 86 MG/DL (70-100); SODIUM LEVEL 139 MEQ/L (136-145); TOTAL PROTEIN 5.2 GM/DL (6.4-8.2)
== END ==
LOC: M WUC 08:54
PROVIDERS: ATTEND Nurse Practitioner
DX: K74.60 Unspecified cirrhosis of liver (principal)

== ENCOUNTER → 2019-12-17 | Outpatient (CLI) | payer OTHER ==
[2019-12-17 13:22] LABS: BASO # 0.1 10^3/uL (0.0-0.2); BASO % 1.6 % (0.0-1.0); EOS # 0.3 10^3/uL (0.0-0.5); EOS % 6.3 % (0.0-3.0); HEMATOCRIT 35.2 % (42.0-52.0); HEMOGLOBIN 11.9 g/dl (13.5-17.5); LYMPH # 1.6 10^3/uL (1.5-5.0); LYMPH % 32.8 % (24.0-44.0); MEAN CORPUSCULAR HEMOGLOBIN 31.4 pg (27.0-33.0); MEAN CORPUSCULAR HGB CONC 33.8 g/dl (32.0-36.5); MEAN CORPUSCULAR VOLUME 92.9 fl (80.0-96.0); MONO # 0.6 10^3/uL (0.0-0.8); MONO % 11.5 % (0.0-5.0); NEUTROPHILS # 2.3 10^3/uL (1.5-8.5); NEUTROPHILS % 46.4 % (36.0-66.0); PLATELET COUNT, AUTOMATED 185 10^3/uL (150-450); RED BLOOD COUNT 3.79 10^6/uL (4.30-6.10); WHITE BLOOD COUNT 4.9 10^3/uL (4.0-10.0)
[2019-12-17 13:29] LABS: INR 1.6; PROTHROMBIN TIME 18.8 SECONDS (11.8-14.0)
[2019-12-17 13:37] LABS: ALBUMIN 2.4 GM/DL (3.2-5.2); ALT/SGPT 19 U/L (12-78); AMYLASE 66 U/L (25-115); BILIRUBIN,TOTAL 1.6 MG/DL (0.2-1.0); BLOOD UREA NITROGEN 9 MG/DL (7-18); CALCIUM LEVEL 7.8 MG/DL (8.5-10.1); CARBON DIOXIDE LEVEL 30 MEQ/L (21-32); CHLORIDE LEVEL 108 MEQ/L (98-107); CREATININE FOR GFR 0.57 MG/DL (0.70-1.30); GLOMERULAR FILTRATION RATE > 60.0 (>56); GLUCOSE, FASTING 87 MG/DL (70-100); LIPASE 894 U/L (73-393); POTASSIUM SERUM 3.7 MEQ/L (3.5-5.1); SODIUM LEVEL 139 MEQ/L (136-145); TOTAL PROTEIN 5.2 GM/DL (6.4-8.2)
== END ==
LOC: M WUC 08:59
PROVIDERS: ATTEND Nurse Practitioner
DX: K85.10 Biliary acute pancreatitis without necrosis or infection (principal); K75.81 Nonalcoholic steatohepatitis (NASH)

== ENCOUNTER 2019-12-23 12:30 | Inpatient (IN) | payer OTHER ==
[~2019-12-23] VITALS: Ht 172.7 cm; Wt 82.1 kg
--- NOTE | 2019-12-23 13:33 | REP ---
Clinical: Altered mental status . Comparison: None . Findings: The ventricles, sulci, and cisterns are normal in position and appearance. Downey-white differentiation is maintained. No acute intracranial hemorrhage, mass/mass effect, pathology or trauma/injury. No evidence for acute infarction. No extra-axial fluid collection. Calvarium is intact. Paranasal sinuses and mastoid air cells are clear. Impression: Normal noncontrast head CT. No evidence for acute intracranial pathology or trauma/injury. Electronically Signed by Lee Aquino MD 12/23/2019 01:25 P
--- NOTE | 2019-12-23 13:35 | REP ---
Clinical: Altered mental status. Chest pain with history of right chest tube. Comparison: 12/09/2019 . Findings: The mediastinum and cardiac silhouette are stable and within normal limits for portable technique. The lung langford are clear without acute consolidation, effusion, or pneumothorax. Previous right chest tube removed. Skeletal structures are intact. Impression: No acute cardiopulmonary process appreciated. Electronically Signed by Lee Aquino MD 12/23/2019 01:26 P
[2019-12-23 13:57] LABS: BASO # 0.1 10^3/uL (0.0-0.2); BASO % 3.1 % (0.0-1.0); EOS # 0.1 10^3/uL (0.0-0.5); EOS % 3.9 % (0.0-3.0); HEMATOCRIT 38.6 % (42.0-52.0); HEMOGLOBIN 12.9 g/dl (13.5-17.5); LYMPH # 1.3 10^3/uL (1.5-5.0); LYMPH % 37.1 % (24.0-44.0); MEAN CORPUSCULAR HEMOGLOBIN 30.6 pg (27.0-33.0); MEAN CORPUSCULAR HGB CONC 33.4 g/dl (32.0-36.5); MEAN CORPUSCULAR VOLUME 91.5 fl (80.0-96.0); MONO # 0.5 10^3/uL (0.0-0.8); MONO % 13.5 % (0.0-5.0); NEUTROPHILS # 1.5 10^3/uL (1.5-8.5); NEUTROPHILS % 42.1 % (36.0-66.0); PLATELET COUNT, AUTOMATED 184 10^3/uL (150-450); RED BLOOD COUNT 4.22 10^6/uL (4.30-6.10); WHITE BLOOD COUNT 3.6 10^3/uL (4.0-10.0)
[2019-12-23 14:08] LABS: INR 1.58; PROTHROMBIN TIME 18.6 SECONDS (11.8-14.0)
[2019-12-23 14:09] LABS: PARTIAL THROMBOPLASTIN TIME 41.6 SECONDS (25.0-38.4)
[2019-12-23 14:30] LABS: OSMOLALITY SERUM 286 MOSM/KG (275-295)
[2019-12-23 14:31] LABS: ALBUMIN 2.8 GM/DL (3.2-5.2); ALT/SGPT 21 U/L (12-78); BILIRUBIN,DIRECT 0.8 MG/DL (0.0-0.2); BILIRUBIN,TOTAL 1.7 MG/DL (0.2-1.0); BLOOD UREA NITROGEN 10 MG/DL (7-18); CALCIUM LEVEL 8.5 MG/DL (8.5-10.1); CARBON DIOXIDE LEVEL 22 MEQ/L (21-32); CHLORIDE LEVEL 110 MEQ/L (98-107); CREATININE FOR GFR 0.74 MG/DL (0.70-1.30); GLOMERULAR FILTRATION RATE > 60.0 (>56); GLUCOSE, FASTING 92 MG/DL (70-100); POTASSIUM SERUM 3.9 MEQ/L (3.5-5.1); SODIUM LEVEL 141 MEQ/L (136-145); TOTAL PROTEIN 6.1 GM/DL (6.4-8.2)
[2019-12-23] MEDS ORDERED: LACTULOSE 20 GM/30 ML SYRUP UD PO ONE (16:30)
[2019-12-23] MEDS ORDERED: ELIQ5TAB PO (16:33)
[2019-12-23] MEDS ORDERED: DEXTROSE 50% 50 ML SYRINGE IV PRN (16:45)
[2019-12-23] MEDS ORDERED: ACETAMINOPHEN 500 MG TAB PO PRN (16:45)
[2019-12-23] MEDS ORDERED: D5W/0.45% SODIUM CHLORIDE 1,000 ML IV SCH (16:45)
[2019-12-23] MEDS ORDERED: GLUCAGON INJ 1MG VIAL SC PRN (16:45)
[2019-12-23] MEDS ORDERED: CETIRIZINE (ZyrTEC) 10 MG TAB PO PRN (16:45)
[2019-12-23] MEDS ORDERED: ONDANSETRON 4 MG ORAL DISINTEGRATING TAB PO PRN (16:45)
[2019-12-23] MEDS ORDERED: GLUCOSE 4GM CHEW TABLET PO PRN (16:45)
--- NOTE | 2019-12-23 16:56 | ECGEPIP ---
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
[2019-12-23] MEDS ORDERED: CIPROFLOXACIN 400 MG in IV 1 EA IV ONE (17:00)
[2019-12-23] MEDS: SUCRALFATE 1 GM TAB PO SCH ×2 (17:50→20:10)
[2019-12-23] MEDS ORDERED: NS 1,000 ML IV ONE (18:00)
[2019-12-23 18:36] VITALS: BP 115/67
--- NOTE | 2019-12-23 18:41 | REPVR ---
PROCEDURE INFORMATION: Exam: CT Abdomen And Pelvis Without Contrast Exam date and time: 12/23/2019 5:59 PM Age: 59 years old Clinical indication: Other: Encephalopathic; Additional info: Encephalopathic S/P tips TECHNIQUE: Imaging protocol: Computed tomography of the abdomen and pelvis without contrast. Radiation optimization: All CT scans at this facility use at least one of these dose optimization techniques: automated exposure control; mA and/or kV adjustment per patient size (includes targeted exams where dose is matched to clinical indication); or iterative reconstruction. COMPARISON: CT ABD/PEL W/IV CONTRAST ONLY 12/06/2019 8:51 PM FINDINGS: Tubes, catheters and devices: A portosystemic shunt has been placed in comparison to the prior study. Pleural space: Right pleural effusion is again noted but has markedly decreased in volume. Liver: Cirrhotic liver. Gallbladder and bile ducts: Cholelithiasis. The gallbladder wall thickening on the prior study has resolved. Pancreas: There is increased density in the peripancreatic soft tissue surrounding the head of the pancreas which may be due to acute pancreatitis and or associated with the recent TIPS procedure.There is no dilatation of the pancreatic duct. Spleen: Splenomegaly. Adrenals: The adrenal glands are unremarkable. Kidneys and ureters: The kidneys are unremarkable. Stomach and bowel: Evidence of prior gastric surgery and small bowel anastomosis. There is no evidence of intestinal obstruction. The colonic wall thickening on the prior study has resolved. Appendix: No evidence of appendicitis. Intraperitoneal space: There is only minimal amount of residual ascites. There is increased density in the root of the mesentery. Vasculature: The aorta is unremarkable. Lymph nodes: Unremarkable. No enlarged lymph nodes. Bladder: The bladder is unremarkable. Reproductive: Unremarkable as visualized. Bones/joints: Skeletal degeneration particularly involving the right hip. Soft tissues: Fluid is again seen in the right inguinal hernia. Mild anasarca. IMPRESSION: Marked diminishment of ascites, colonic and gallbladder wall thickening as well as thickening of the small bowel and gastric polanco and diminishment of the right pleural effusion in comparison the prior study. There is a persistent moderate right pleural effusion and persistent increased density in the root of the mesentery and surrounding the pancreatic head although this may be associated with the TIPS procedure. Electronically signed by: Kandis Parnell On 12/23/2019 18:40:50 PM
[2019-12-23 20:00] VITALS: BP 113/65
[2019-12-23] MEDS: LACTULOSE 20 GM/30 ML SYRUP UD PO SCH (20:09)
[2019-12-23] MEDS: metroNIDAZOLE 500 MG in IV 1 EA IV SCH (20:09)
[2019-12-23 20:10] VITALS: BP 120/80
[2019-12-23] MEDS: traMADol 50 MG TAB PO SCH (20:11)
[2019-12-23] MEDS ORDERED: APIXABAN 5 MG TAB (ELIQUIS) PO SCH (21:00)
[2019-12-23] MEDS ORDERED: FUROSEMIDE 40 MG TAB PO SCH (21:00)
[2019-12-23] MEDS ORDERED: atenoloL 25 MG TAB PO SCH (21:00)
[2019-12-23] MEDS ORDERED: ONDANSETRON 4 MG ORAL DISINTEGRATING TAB PO ONE (22:00)
[2019-12-23] MEDS: SIMETHICONE 80 MG CHEW TAB PO SCH (22:13)
[2019-12-24] VITALS: BP 102/56
[2019-12-24] MEDS: LACTULOSE 20 GM/30 ML SYRUP UD PO SCH ×3 (00:26→12:09)
[2019-12-24] MEDS ORDERED: METOCLOPRAMIDE INJ 10MG/2ML VIAL (J2765 PER 1) IV ONE (00:30)
[2019-12-24 04:00] VITALS: BP 100/60
[2019-12-24] MEDS: metroNIDAZOLE 500 MG in IV 1 EA IV SCH ×2 (04:20→12:00)
[2019-12-24 05:06] LABS: BASO # 0.1 10^3/uL (0.0-0.2); BASO % 2.5 % (0.0-1.0); EOS # 0.2 10^3/uL (0.0-0.5); EOS % 4.4 % (0.0-3.0); HEMATOCRIT 32.4 % (42.0-52.0); LYMPH # 1.5 10^3/uL (1.5-5.0); LYMPH % 39.9 % (24.0-44.0); MEAN CORPUSCULAR HEMOGLOBIN 31.1 pg (27.0-33.0); MEAN CORPUSCULAR VOLUME 91.5 fl (80.0-96.0); MONO # 0.6 10^3/uL (0.0-0.8); MONO % 15.4 % (0.0-5.0); NEUTROPHILS # 1.4 10^3/uL (1.5-8.5); NEUTROPHILS % 37.5 % (36.0-66.0); PLATELET COUNT, AUTOMATED 144 10^3/uL (150-450); RED BLOOD COUNT 3.54 10^6/uL (4.30-6.10); WHITE BLOOD COUNT 3.6 10^3/uL (4.0-10.0)
[2019-12-24 05:33] LABS: ALBUMIN 2.4 GM/DL (3.2-5.2); ALT/SGPT 18 U/L (12-78); BILIRUBIN,TOTAL 1.5 MG/DL (0.2-1.0); BLOOD UREA NITROGEN 8 MG/DL (7-18); CALCIUM LEVEL 8.4 MG/DL (8.5-10.1); CARBON DIOXIDE LEVEL 24 MEQ/L (21-32); CHLORIDE LEVEL 112 MEQ/L (98-107); CREATININE FOR GFR 0.69 MG/DL (0.70-1.30); GLOMERULAR FILTRATION RATE > 60.0 (>56); GLUCOSE, FASTING 75 MG/DL (70-100); POTASSIUM SERUM 3.9 MEQ/L (3.5-5.1); SODIUM LEVEL 144 MEQ/L (136-145)
[2019-12-24] MEDS ORDERED: CIPROFLOXACIN 400 MG in IV 1 EA IV SCH (06:00)
[2019-12-24 07:38] VITALS: BP 100/58
[2019-12-24] MEDS: SIMETHICONE 80 MG CHEW TAB PO SCH (08:30)
[2019-12-24] MEDS: SUCRALFATE 1 GM TAB PO SCH ×2 (08:30→12:09)
[2019-12-24] MEDS: traMADol 50 MG TAB PO SCH (08:31)
[2019-12-24] MEDS ORDERED: VITAMIN E 400 INTERNATIONAL UNITS CAP PO SCH (09:00)
[2019-12-24] MEDS ORDERED: VITAMIN D 1,000 INTERNATIONAL UNITS TABLET PO SCH (09:00)
[2019-12-24] MEDS ORDERED: MULTIVITAMINS/MINERALS THERAP 1 TAB PO SCH (09:00)
[2019-12-24] MEDS ORDERED: CYANOCOBALAMIN 500 MCG TAB PO SCH (09:00)
[2019-12-24] MEDS ORDERED: SPIRONOLACTONE 50 MG TAB PO SCH (09:00)
[2019-12-24] MEDS ORDERED: MAGNESIUM OXIDE 400 MG TAB (MAG-OX) PO SCH (09:00)
[2019-12-24] MEDS ORDERED: LACT10SO3 PO (10:36)
[2019-12-24 11:48] VITALS: BP 102/56
--- NOTE | 2019-12-24 12:14 | HPE ---
DATE OF ADMISSION: 12/23/2019 The patient's liver transplant physician is Dr. Suleiman Workman, [facility], . CHIEF COMPLAINT: Confusion. HISTORY OF PRESENT ILLNESS: This is a 59-year-old male with history of nonalcoholic steatohepatitis with decompensated liver cirrhosis with large pleural effusion, ascites, sent to [facility] for TIPS procedure, status post TIPS in November 2019. The patient also has a history of pulmonary embolism on chronic Eliquis, supraventricular tachycardia (SVT) and chronic pancreatitis, was in his usual state of health until this morning when the patient appeared confused. According to the , she has been instructed by Dr. Workman's coordinator, Jared, to be vigilant of confusion. This morning he talked with the and says today is the longest day of the year to sleep; and when he was trying to watch television, he was unable to handle the remote control. He increased the amplifiers in the house and then he was listening to his cell phone when he was not calling anyone. He then hit his with a filler cup that he drank from and says that he had been taking his lactulose twice already and thought that it was 2 p.m. when the said it was not noon yet. She went to see if he had checked off his diary to see if he had taken his medications and it looks like he did not check off last night's medication, so she thinks that he had not taken his lactulose. She then brought him into the emergency room for further evaluation of the confusion. No fever or chills. The patient says he had 2 to 3 explosive diarrheas at home because of the lactulose; and on arrival, he was noted to have an ammonia level of 112, no fever or chills, hemodynamically stable otherwise. No signs of bleeding. He had no upper gastrointestinal (GI) bleed, hematemesis, coffee round emesis, bright red blood per rectum, melena or black tarry stools. No ascites on examination or abdominal distension. He says he still occasionally hurts from the TIPS was placed, but he says this is normal for him. Otherwise, the patient appears to be alert and awake, able to provide some history. He says that he had been doing well and says "I feel great." He has had about a 20 pound weight loss since the TIPS procedure has been done. He has a little bit of nausea today, but took some Zofran at home and he takes tramadol as needed for his pain in the abdomen. PAST MEDICAL HISTORY: 1. Nonalcoholic steatohepatitis causing liver cirrhosis, status post TIPS procedure at [facility], November 2019. 2. Recurrent pancreatitis. 3. Liver cirrhosis. 4. Pulmonary embolus 5. Supraventricular tachycardia (SVT). 6. Large pleural effusion requiring chest tube placement. HOME MEDICATIONS: Lasix 40 mg at bedtime (q.h.s.), Rifaximin 550 mg twice a day, spironolactone 100 mg daily, lactulose 30 mL by mouth twice a day, Prilosec 40 mg twice a day, ursodiol 250 mg by mouth twice a day, acetaminophen 500 mg every 6 hours as needed, Eliquis 5 mg at bedtime (q.h.s.), atenolol 25 mg at bedtime (q.h.s.), cetirizine 10 mg daily, vitamin D 1000 units daily, B12 500 mcg daily, magnesium oxide 400 mg daily, multivitamins one tablet daily, Zofran 4 mg as needed, Carafate 1 gm before meals (ac), at bedtime (hs), tramadol 150 mg twice a day and vitamin E 400 units daily. PAST SURGICAL HISTORY: Gastric bypass, TIPS procedure, chest tube. SOCIAL HISTORY: The patient lives with his at home. 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 Lives also with his stepdaughter. His 's name is Divya. Her phone number is [phone]. He is a full code. The patient does not smoke cigarettes, never smoked cigarettes. He used to drink beer once every year, otherwise no recreational drug use. FAMILY HISTORY: Mother alive, age 83 with breast cancer treated. Dad at the age of 82 with cancer all over, did not know where the primary cancer was. Brother alive age 53, had a liver transplant. REVIEW OF SYSTEMS: Per history of present illness, 12 point system otherwise negative. PHYSICAL EXAMINATION: Temperature 98.6, pulse 58, respiratory rate 20, blood pressure 99/59, 100% on room air. General: The patient is awake, alert, oriented to himself, place and time. He was able to converse and give much of a history. There is no disorientation. Anicteric sclerae. No jaundice, no jugular venous distension (JVD), thyromegaly. Moist mucous membranes. Lungs are clear to auscultation. No wheezes, rales or rhonchi. Heart: S1, S2, sinus rhythm. Abdomen is soft, slightly tender in right upper quadrant. No rebound, guarding, no hepatosplenomegaly. Extremities has trace edema in bilateral lower extremities. LABORATORY DATA: White count of 3.6, hemoglobin 12.9, hematocrit 38.6, platelet count 184. Sodium 141, potassium 3.9, chloride 110, bicarbonate 22, BUN 10, creatinine 0.74, glucose 92, lactic acid of 2.4, calcium 8.5, total bilirubin 1.7, direct bilirubin 0.8, AST 34, ALT 21, alkaline phosphatase 143, ammonia of 113, total protein 5.1, albumin of 2.8, thyroid simulating hormone (TSH) of 2.87. Blood culture has been sent. CT of the head was negative. No evidence of acute intracranial pathology. Chest x-ray: No acute cardiopulmonary process. CT abdomen and pelvis: Pending ASSESSMENT AND PLAN: This is a 59-year-old male with a history of recurrent nonalcoholic steatohepatitis, related pancreatitis with liver cirrhosis, pulmonary emboli (PE), supraventricular tachycardia (SVT) on chronic anticoagulation, recently sent to [facility] in order to obtain a TIPS procedure. The patient's noted acute confusion this morning and had noted he had not been taking Lactulose at home. Otherwise, no fever, chills or increasing abdominal distension and no bright red blood per rectum, melena or black tarry stools. The patient was brought in by the and was found to have an ammonia level of 113. CURRENT ISSUES: 1. Acute hepatic encephalopathy secondary to elevated ammonia level. At this time, the patient's lactulose will be increased every 4 hours, will obtain abdomen and pelvis to check the TIPS procedure. He appears to have no abdominal distension, but will give IV antibiotics, Cipro and Flagyl for now, afebrile. If the patient should have hypernatremia or acute kidney injury, will start him on intravenous fluids. For now, will keep on the same medications. I am waiting for a call from Dr. Workman, for any other further recommendations. 2. Nonalcoholic steatohepatitis, follows at the liver transplant facility at [facility]. Resume all home medications. 3. Pulmonary embolism. May be resumed on his home anticoagulant. 4. History of supraventricular tachycardia (SVT), currently controlled. 5. Deep vein thrombosis (DVT) prophylaxis. The patient is on chronic Eliquis. FULL CODE:
--- NOTE | 2019-12-24 16:11 | DS.PDOC ---
Discharge Summary General Date of Admission Dec 23, 2019 at 16:36 Date of Discharge 12/24/2019 Discharge Summary PROCEDURES PERFORMED DURING STAY: [None]. ADMITTING DIAGNOSES / DISCHARGE DIAGNOSES: Acute hepatic encephalopathy 2/2 elevated ammonia level Nonalcoholic steatohepatitis Pulmonary embolism History of supraventricular tachycardia (SVT) Deep vein thrombosis (DVT) prophylaxis COMPLICATIONS/CHIEF COMPLAINT: Confusion HISTORY OF PRESENT ILLNESS: Patient is a 51-year-old male with a past medical history of Non- alcoholic steatohepatitis with decompensated liver cirrhosis with large pleural effusion and ascites, who was transferred to [facility] for TIPS procedure, status post TIPS in November 2019. The patient also has a history of pulmonary embolism on chronic Eliquis, supraventricular tachycardia (SVT) and chronic pancreatitis, was in his usual state of health until on 12/22 AM he appears to develop confusion. Patient reports that the dose of his lactulose was reduced because he's been experiencing diarrhea. Patient was admitted to the hospitalist service for suspected hepatic encephalopathy. HOSPITAL COURSE: s/p Acute hepatic encephalopathy 2/2 elevated ammonia level - Currently, patient is oriented to person, place and time. Does not appear to have any level of confusion - No focal neurologic deficits - CT head 12/23: Normal noncontrast head CT. No evidence for acute intracranial pathology or trauma/injury. - CT abdomen / pelvis 12/23: Marked diminishment of ascites, colonic and gallbladder wall thickening as well as thickening of the small bowel and gastric polanco and diminishment of the right pleural effusion in comparison the prior study. There is a persistent moderate right pleural effusion and persistent increased density in the root of the mesentery and surrounding the pancreatic head although this may be associ ated with the TIPS procedure. - c/w adjusted dose of Lactulose, advised to continue to titrate to 2-3 bowel movements a day - c/w rifaximin Nonalcoholic steatohepatitis - Patient follows with a liver transplant facility at [facility] - We will continue with home regimen - We'll have outpatient follow-up with gastroenterology and hepatology within 7 days Recurrent R pleural effusion - Currently patient does not experience any SOB, palpitations or cough - No evidence of infection - Has had chest tube place on prior admission on 12/08 - Does not require any intervention at this time - Will DC Ciprofloxacin / Flagyl - Will c/w Spironolactone and Furosemide - Advised patient to follow-up with gastroenterology/hepatology/primary care provider for repeat imaging Pulmonary embolism - c/w Eliquis History of supraventricular tachycardia (SVT) - Currently remains rate controlled - c/w Atenolol Deep vein thrombosis (DVT) prophylaxis - c/w full anticoagulation with Eliquis DISCHARGE MEDICATIONS: Please see below. ALLERGIES: Please see below. PHYSICAL EXAMINATION ON DISCHARGE: Vitals (See below) General: Lying in bed, no acute distress, comfortable, AAOx3 HEENT: NC, AT CVS: +S1S2 Lungs: Fair air entry b/l, -w/r/r Abdomen: Soft, ND, NT Extremities: - Edema, - Calf tenderness LABORATORY DATA: Please see below. ACTIVITY: [As tolerated]. DISCHARGE PLAN: Follow-up with primary care provider hepatology and gastroenterology within 7 days Remain compliant with treatment plan and medications Return to the ER if you experience any problems DISPOSITION: Home, Self-Care. DISCHARGE CONDITION: [Stable]. TIME SPENT ON DISCHARGE: 35 minutes. Vital Signs/I&Os Vital Signs Date Time Temp Pulse Resp B/P (MAP) Pulse Ox O2 Delivery O2 Flow Rate FiO2 12/24/19 11:48 97.4 57 18 102/56 (71) 100 Room Air I&O- Last 24 Hours up to 6 AM 12/24/19 06:00 Intake Total 1400 ml Output Total 725 ml Balance 675 ml Laboratory Data Labs 24H Laboratory Tests 2 12/23/19 16:36: Lab Scanned Report LAB OTHER 12/23/19 19:29: Lactic Acid Followup at 4 Hours 1.9 12/24/19 00:00: Ammonia 71H 12/24/19 04:49: Ammonia 75H, Immature Granulocyte % (Auto) 0.3, Neutrophils (%) (Auto) 37.5, Lymphocytes (%) (Auto) 39.9, Monocytes (%) (Auto) 15.4H, Eosinophils (%) (Auto) 4.4H, Basophils (%) (Auto) 2.5H, Neutrophils # (Auto) 1.4L, Lymphocytes # (Auto) 1.5, Monocytes # (Auto) 0.6, Eosinophils # (Auto) 0.2, Basophils # (Auto) 0.1, Nucleated Red Blood Cells % (auto) 0.0, Anion Gap 8, Glomerular Filtration Rate > 60.0, Calcium Level 8.4L, Total Bilirubin 1.5H, Aspartate Amino Transf (AST/SGOT) 28, Alanine Aminotransferase (ALT/SGPT) 18, Alkaline Phosphatase 110, Total Protein 5.0L, Albumin 2.4L, Albumin/Globulin Ratio 0.9 CBC/BMP Laboratory Tests 12/24/19 04:49 Microbiology Microbiology 12/23/19 Blood Culture - Preliminary, Resulted No growth after 24 hours . All specim... 12/23/19 Blood Culture - Preliminary, Resulted No growth after 24 hours . All specim... Discharge Medications Scheduled Apixaban (Eliquis) 5 Mg Tablet, 5 MG PO QHS, (Reported) PT STATES ONLY TAKING AT BEDTIME Atenolol (Atenolol) 25 Mg Tablet, 25 MG PO QHS, (Reported) Cholecalciferol (Vitamin D3) (Vitamin D3) 1,000 Unit Tablet, 1,000 UNITS PO DAILY, (Reported) Cyanocobalamin (Vitamin B-12) (Vitamin B-12) 500 Mcg Tablet, 500 MCG PO DAILY, (Reported) Furosemide (Furosemide) 20 Mg Tablet, 40 MG PO QHS, (Reported) Lactulose (Lactulose) 10 Gm/15 Ml Solution, 30 ML PO QID Titrate to 2-3 bowel movements dialy Magnesium Oxide (Magnesium Oxide) 400 Mg Tablet, 400 MG PO DAILY, (Reported) Multivitamins (Thera M Plus Tablet) 1 Each Tablet, 1 TAB PO DAILY, (Reported) Omeprazole (Omeprazole) 40 Mg Capsule.dr, 40 MG PO BID, (Reported) Rifaximin (Xifaxan) 550 Mg Tablet, 550 MG PO BID, (Reported) Spironolactone (Spironolactone) 50 Mg Tablet, 100 MG PO DAILY, (Reported) Sucralfate (Carafate) 1 Gm Tablet, 1 GM PO ACHS, (Reported) 4 times per day take on an empty stomach Tramadol HCl (Tramadol HCl) 50 Mg Tablet, 150 MG PO BID, (Reported) Ursodiol (Ursodiol) 250 Mg Tablet, 250 MG PO BID, (Reported) Vitamin E (Dl,Tocopheryl Acet) (Vitamin E) 400 Unit Capsule, 400 UNIT PO DAILY, (Reported) Scheduled PRN Acetaminophen (Acetaminophen) 500 Mg Tablet, 500 MG PO Q6H PRN for PAIN, (Reported) Cetirizine HCl (Cetirizine HCl) 10 Mg Tablet, 10 MG PO DAILY PRN for ALLERGIES, (Reported) Ondansetron (Ondansetron Odt) 4 Mg Tab.rapdis, 4 MG PO Q6H PRN for NAUSEA, (Reported) Allergies Coded Allergies: No Known Allergies (Unverified , 12/23/19) AMBER CARTAGENA MD Dec 24, 2019 16:11
[2019-12-24] MEDS ORDERED: FUROSEMIDE 40 MG TAB PO SCH (21:00)
--- NOTE | 2019-12-26 08:35 | ECGEPIP ---
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
== END 2019-12-24 12:55 | disposition home or self-care (01) | DRG 279 ==
LOC: M ED 12:30 → M ED INP 16:36 → ENRESERV 17:13 → M PCU 18:28
PROVIDERS: ADMIT General Practice; ATTEND Internal Medicine
DX: K72.00 Acute and subacute hepatic failure without coma (principal); I26.99 Other pulmonary embolism without acute cor pulmonale; K86.1 Other chronic pancreatitis; K75.81 Nonalcoholic steatohepatitis (NASH); K74.69 Other cirrhosis of liver; Z79.01 Long term (current) use of anticoagulants; Z79.899 Other long term (current) drug therapy

== ENCOUNTER → 2019-12-26 | Outpatient (CLI) | payer OTHER ==
[2019-12-26 16:09] LABS: BASO # 0.1 10^3/uL (0.0-0.2); BASO % 2.4 % (0.0-1.0); EOS # 0.3 10^3/uL (0.0-0.5); EOS % 5.4 % (0.0-3.0); HEMATOCRIT 35.1 % (42.0-52.0); HEMOGLOBIN 11.6 g/dl (13.5-17.5); LYMPH # 1.7 10^3/uL (1.5-5.0); LYMPH % 37.4 % (24.0-44.0); MEAN CORPUSCULAR HEMOGLOBIN 30.8 pg (27.0-33.0); MEAN CORPUSCULAR VOLUME 93.1 fl (80.0-96.0); MONO # 0.7 10^3/uL (0.0-0.8); MONO % 14.5 % (0.0-5.0); NEUTROPHILS # 1.9 10^3/uL (1.5-8.5); NEUTROPHILS % 40.1 % (36.0-66.0); PLATELET COUNT, AUTOMATED 143 10^3/uL (150-450); RED BLOOD COUNT 3.77 10^6/uL (4.30-6.10); WHITE BLOOD COUNT 4.6 10^3/uL (4.0-10.0)
[2019-12-26 16:13] LABS: ALBUMIN 2.7 GM/DL (3.2-5.2); ALT/SGPT 20 U/L (12-78); AMYLASE 56 U/L (25-115); BILIRUBIN,TOTAL 1.6 MG/DL (0.2-1.0); BLOOD UREA NITROGEN 9 MG/DL (7-18); CALCIUM LEVEL 8.4 MG/DL (8.5-10.1); CARBON DIOXIDE LEVEL 27 MEQ/L (21-32); CHLORIDE LEVEL 107 MEQ/L (98-107); CREATININE FOR GFR 0.69 MG/DL (0.70-1.30); GLOMERULAR FILTRATION RATE > 60.0 (>56); GLUCOSE, FASTING 80 MG/DL (70-100); LIPASE 380 U/L (73-393); POTASSIUM SERUM 4.2 MEQ/L (3.5-5.1); SODIUM LEVEL 139 MEQ/L (136-145); TOTAL PROTEIN 5.7 GM/DL (6.4-8.2)
[2019-12-26 16:22] LABS: INR 1.93; PROTHROMBIN TIME 21.8 SECONDS (11.8-14.0)
== END ==
LOC: M WUC 10:43
PROVIDERS: ATTEND Nurse Practitioner
DX: K85.10 Biliary acute pancreatitis without necrosis or infection (principal); K75.81 Nonalcoholic steatohepatitis (NASH)

== ENCOUNTER → 2019-12-31 | Outpatient (CLI) | payer OTHER ==
[~2019-12-31] MED LIST changes: -ALL10TAB29 PO; +CETI-24 PO; +D31000TA2 PO; +URSO1TAB7 PO; -VITAD1000T PO; -[UNRECOGNIZED DRUG - CODE] PO
[2019-12-31 16:57] LABS: BASO # 0.1 10^3/uL (0.0-0.2); BASO % 1.8 % (0.0-1.0); EOS # 0.3 10^3/uL (0.0-0.5); EOS % 5.2 % (0.0-3.0); HEMATOCRIT 34.3 % (42.0-52.0); HEMOGLOBIN 11.8 g/dl (13.5-17.5); LYMPH # 1.8 10^3/uL (1.5-5.0); LYMPH % 36.3 % (24.0-44.0); MEAN CORPUSCULAR HEMOGLOBIN 31.1 pg (27.0-33.0); MEAN CORPUSCULAR HGB CONC 34.4 g/dl (32.0-36.5); MEAN CORPUSCULAR VOLUME 90.5 fl (80.0-96.0); MONO # 0.6 10^3/uL (0.0-0.8); MONO % 12.3 % (0.0-5.0); NEUTROPHILS # 2.2 10^3/uL (1.5-8.5); PLATELET COUNT, AUTOMATED 117 10^3/uL (150-450); RED BLOOD COUNT 3.79 10^6/uL (4.30-6.10)
[2019-12-31 17:20] LABS: INR 1.9; PROTHROMBIN TIME 21.6 SECONDS (11.8-14.0)
[2019-12-31 17:21] LABS: ALBUMIN 2.7 GM/DL (3.2-5.2); ALT/SGPT 22 U/L (12-78); AMYLASE 54 U/L (25-115); BILIRUBIN,TOTAL 1.2 MG/DL (0.2-1.0); BLOOD UREA NITROGEN 13 MG/DL (7-18); CALCIUM LEVEL 8.3 MG/DL (8.5-10.1); CARBON DIOXIDE LEVEL 23 MEQ/L (21-32); CHLORIDE LEVEL 110 MEQ/L (98-107); CREATININE FOR GFR 0.76 MG/DL (0.70-1.30); GLOMERULAR FILTRATION RATE > 60.0 (>56); GLUCOSE, FASTING 83 MG/DL (70-100); LIPASE 339 U/L (73-393); POTASSIUM SERUM 4.2 MEQ/L (3.5-5.1); SODIUM LEVEL 140 MEQ/L (136-145); TOTAL PROTEIN 5.8 GM/DL (6.4-8.2)
== END ==
LOC: M WUC 14:06
PROVIDERS: ATTEND Nurse Practitioner
DX: K85.10 Biliary acute pancreatitis without necrosis or infection (principal); K75.81 Nonalcoholic steatohepatitis (NASH)

== ENCOUNTER → 2020-01-08 | Outpatient (CLI) | payer OTHER ==
[2020-01-08 10:09] LABS: HEMATOCRIT 36.6 % (42.0-52.0); HEMOGLOBIN 12.7 g/dl (13.5-17.5); MEAN CORPUSCULAR HEMOGLOBIN 31.2 pg (27.0-33.0); MEAN CORPUSCULAR HGB CONC 34.7 g/dl (32.0-36.5); MEAN CORPUSCULAR VOLUME 89.9 fl (80.0-96.0); PLATELET COUNT, AUTOMATED 107 10^3/uL (150-450); RED BLOOD COUNT 4.07 10^6/uL (4.30-6.10); WHITE BLOOD COUNT 4.2 10^3/uL (4.0-10.0)
[2020-01-08 10:17] LABS: INR 1.62
[2020-01-08 11:02] LABS: ALBUMIN 2.8 GM/DL (3.2-5.2); ALT/SGPT 21 U/L (12-78); BILIRUBIN,TOTAL 1.6 MG/DL (0.2-1.0); BLOOD UREA NITROGEN 13 MG/DL (7-18); CALCIUM LEVEL 8.7 MG/DL (8.5-10.1); CARBON DIOXIDE LEVEL 23 MEQ/L (21-32); CHLORIDE LEVEL 110 MEQ/L (98-107); CREATININE FOR GFR 0.74 MG/DL (0.70-1.30); GLOMERULAR FILTRATION RATE > 60.0 (>56); GLUCOSE, FASTING 82 MG/DL (70-100); POTASSIUM SERUM 4.2 MEQ/L (3.5-5.1); SODIUM LEVEL 141 MEQ/L (136-145); TOTAL PROTEIN 5.9 GM/DL (6.4-8.2)
== END ==
LOC: M WUC 08:33
PROVIDERS: ATTEND Nurse Practitioner
DX: K74.60 Unspecified cirrhosis of liver (principal)

== ENCOUNTER → 2020-01-08 | Outpatient (CLI) | payer OTHER ==
[2020-01-08 10:09] LABS: BASO # 0.1 10^3/uL (0.0-0.2); BASO % 2.1 % (0.0-1.0); EOS # 0.3 10^3/uL (0.0-0.5); EOS % 6.3 % (0.0-3.0); HEMATOCRIT 37.2 % (42.0-52.0); HEMOGLOBIN 12.8 g/dl (13.5-17.5); LYMPH # 1.6 10^3/uL (1.5-5.0); LYMPH % 37.5 % (24.0-44.0); MEAN CORPUSCULAR HEMOGLOBIN 31.1 pg (27.0-33.0); MEAN CORPUSCULAR HGB CONC 34.4 g/dl (32.0-36.5); MEAN CORPUSCULAR VOLUME 90.3 fl (80.0-96.0); MONO # 0.6 10^3/uL (0.0-0.8); MONO % 13.4 % (0.0-5.0); NEUTROPHILS # 1.7 10^3/uL (1.5-8.5); NEUTROPHILS % 40.2 % (36.0-66.0); PLATELET COUNT, AUTOMATED 110 10^3/uL (150-450); RED BLOOD COUNT 4.12 10^6/uL (4.30-6.10); WHITE BLOOD COUNT 4.3 10^3/uL (4.0-10.0)
[2020-01-08 10:17] LABS: INR 1.59; PROTHROMBIN TIME 18.7 SECONDS (11.8-14.0)
[2020-01-08 11:15] LABS: ALBUMIN 2.8 GM/DL (3.2-5.2); ALT/SGPT 18 U/L (12-78); AMYLASE 39 U/L (25-115); BILIRUBIN,TOTAL 1.6 MG/DL (0.2-1.0); BLOOD UREA NITROGEN 12 MG/DL (7-18); CALCIUM LEVEL 8.7 MG/DL (8.5-10.1); CARBON DIOXIDE LEVEL 23 MEQ/L (21-32); CHLORIDE LEVEL 110 MEQ/L (98-107); CREATININE FOR GFR 0.73 MG/DL (0.70-1.30); GLOMERULAR FILTRATION RATE > 60.0 (>56); GLUCOSE, FASTING 83 MG/DL (70-100); LIPASE 243 U/L (73-393); POTASSIUM SERUM 4.2 MEQ/L (3.5-5.1); SODIUM LEVEL 141 MEQ/L (136-145); TOTAL PROTEIN 5.9 GM/DL (6.4-8.2)
== END ==
LOC: M WUC 08:24
PROVIDERS: ATTEND Nurse Practitioner
DX: K75.81 Nonalcoholic steatohepatitis (NASH) (principal); K85.10 Biliary acute pancreatitis without necrosis or infection

== ENCOUNTER → 2020-01-11 | Outpatient (CLI) | payer OTHER ==
[2020-01-11 18:20] LABS: BASO # 0.1 10^3/uL (0.0-0.2); BASO % 1.6 % (0.0-1.0); EOS # 0.2 10^3/uL (0.0-0.5); EOS % 5.4 % (0.0-3.0); HEMATOCRIT 34.4 % (42.0-52.0); HEMOGLOBIN 11.4 g/dl (13.5-17.5); LYMPH # 1.3 10^3/uL (1.5-5.0); LYMPH % 35.2 % (24.0-44.0); MEAN CORPUSCULAR HEMOGLOBIN 30.9 pg (27.0-33.0); MEAN CORPUSCULAR HGB CONC 33.1 g/dl (32.0-36.5); MEAN CORPUSCULAR VOLUME 93.2 fl (80.0-96.0); MONO # 0.4 10^3/uL (0.0-0.8); MONO % 10.3 % (0.0-5.0); NEUTROPHILS # 1.7 10^3/uL (1.5-8.5); RED BLOOD COUNT 3.69 10^6/uL (4.30-6.10); WHITE BLOOD COUNT 3.7 10^3/uL (4.0-10.0)
[2020-01-11 18:32] LABS: INR 1.61; PROTHROMBIN TIME 18.9 SECONDS (11.8-14.0)
[2020-01-11 18:37] LABS: ALBUMIN 2.5 GM/DL (3.2-5.2); ALT/SGPT 21 U/L (12-78); AMYLASE 52 U/L (25-115); BILIRUBIN,TOTAL 1.4 MG/DL (0.2-1.0); BLOOD UREA NITROGEN 13 MG/DL (7-18); CALCIUM LEVEL 8.3 MG/DL (8.5-10.1); CARBON DIOXIDE LEVEL 25 MEQ/L (21-32); CHLORIDE LEVEL 108 MEQ/L (98-107); CREATININE FOR GFR 0.79 MG/DL (0.70-1.30); GLOMERULAR FILTRATION RATE > 60.0 (>56); GLUCOSE, FASTING 139 MG/DL (70-100); LIPASE 297 U/L (73-393); SODIUM LEVEL 138 MEQ/L (136-145); TOTAL PROTEIN 5.5 GM/DL (6.4-8.2)
[2020-01-11 18:55] LABS: PLATELET COUNT, AUTOMATED 87 10^3/uL (150-450)
== END ==
LOC: M WUC 09:31
PROVIDERS: ATTEND Nurse Practitioner
DX: K75.81 Nonalcoholic steatohepatitis (NASH) (principal); K85.10 Biliary acute pancreatitis without necrosis or infection

== ENCOUNTER → 2020-01-14 | Outpatient (CLI) | payer OTHER ==
[2020-01-14 10:56] LABS: BASO # 0.1 10^3/uL (0.0-0.2); EOS # 0.3 10^3/uL (0.0-0.5); EOS % 5.3 % (0.0-3.0); HEMATOCRIT 34.3 % (42.0-52.0); HEMOGLOBIN 11.6 g/dl (13.5-17.5); LYMPH # 1.6 10^3/uL (1.5-5.0); LYMPH % 30.6 % (24.0-44.0); MEAN CORPUSCULAR HEMOGLOBIN 31.4 pg (27.0-33.0); MEAN CORPUSCULAR HGB CONC 33.8 g/dl (32.0-36.5); MEAN CORPUSCULAR VOLUME 92.7 fl (80.0-96.0); MONO # 0.7 10^3/uL (0.0-0.8); MONO % 13.7 % (0.0-5.0); NEUTROPHILS # 2.5 10^3/uL (1.5-8.5); NEUTROPHILS % 48.2 % (36.0-66.0); WHITE BLOOD COUNT 5.1 10^3/uL (4.0-10.0)
[2020-01-14 11:02] LABS: PLATELET COUNT, AUTOMATED 92 10^3/uL (150-450)
[2020-01-14 11:05] LABS: INR 1.57; PROTHROMBIN TIME 18.5 SECONDS (11.8-14.0)
[2020-01-14 11:25] LABS: ALBUMIN 2.7 GM/DL (3.2-5.2); ALT/SGPT 21 U/L (12-78); AMYLASE 57 U/L (25-115); BILIRUBIN,TOTAL 1.3 MG/DL (0.2-1.0); BLOOD UREA NITROGEN 17 MG/DL (7-18); CALCIUM LEVEL 8.7 MG/DL (8.5-10.1); CARBON DIOXIDE LEVEL 26 MEQ/L (21-32); CHLORIDE LEVEL 111 MEQ/L (98-107); CREATININE FOR GFR 0.81 MG/DL (0.70-1.30); GLOMERULAR FILTRATION RATE > 60.0 (>56); GLUCOSE, FASTING 83 MG/DL (70-100); LIPASE 285 U/L (73-393); POTASSIUM SERUM 4.3 MEQ/L (3.5-5.1); SODIUM LEVEL 142 MEQ/L (136-145); TOTAL PROTEIN 5.8 GM/DL (6.4-8.2)
== END ==
LOC: M WUC 08:39
PROVIDERS: ATTEND Nurse Practitioner
DX: K85.10 Biliary acute pancreatitis without necrosis or infection (principal); K75.81 Nonalcoholic steatohepatitis (NASH)

== ENCOUNTER → 2020-01-20 | Emergency (ER) | payer OTHER ==
[~2020-01-20] MED LIST changes: +ISOVUE-370 76% 100ML VIAL As Ordered ONE; +LACTULOSE 20 GM/30 ML SYRUP UD As Ordered ONE; +LACTULOSE 20 GM/30 ML SYRUP UD ONE
--- NOTE | 2020-02-21 09:30 | REP ---
CT STUDY OF THE BRAIN WITHOUT CONTRAST: HISTORY: History of a fall. FINDINGS: Bone window setting demonstrates an intact bony calvarium. There is no evidence of skull fracture or bony calvarial lesion. The visualized paranasal sinuses are clear. No intraorbital abnormality is appreciated. On soft tissue window settings, the lateral, third and fourth ventricles are normal in size and position. Downey-white differentiation pattern is normal above and below the tentorium. There is no evidence of intracranial hemorrhage. There is minimal vascular calcification in the carotid siphons. No scalp edema is appreciated. IMPRESSION: Negative noncontrast head CT. MTDD
--- NOTE | 2020-02-21 09:32 | REP ---
CT OF THE ABDOMEN AND PELVIS WITH IV CONTRAST BUT WITHOUT ORAL CONTRAST: HISTORY: Diffuse abdominal pain, history of a fall. 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 The lung bases are clear on axial CT images. There is a tip shunt in place in the liver parenchyma. This shows internal enhancement consistent with patency. The liver is normal in size. The spleen is mildly enlarged, measuring 15.3 cm in greatest diameter. No focal splenic lesion is seen. Normal adrenal glands are seen bilaterally. No abnormality is noted in the pancreas. There is some rounded increased attenuation material in the gallbladder suggesting a gallstone. Sludge is a possibility as well. No biliary ductal dilation is seen. There is a 1.7 cm cyst in the left kidney. There are mesenteric venous collaterals in the small bowel mesentery. A normal appendix is seen. There is a tiny sliver of fluid in the pelvic reflections. The urinary bladder is intact. There is a small right-sided hydrocele noted. Advanced arthropathy is seen in the hips, right greater than left, consistent with osteoarthritis. IMPRESSION: Tip shunt in place. Mild splenomegaly. Venous collaterals consistent with portal hypertension. No acute abdominal abnormality seen. MTDD
[2020-02-23 09:35] LABS: INR 1.43; PARTIAL THROMBOPLASTIN TIME 41.1 SECONDS (25.0-38.4); PROTHROMBIN TIME 17.7 SECONDS (11.8-14.0)
[2020-02-23 09:39] LABS: BASO # 0.1 10^3/uL (0.0-0.2); BASO % 2.1 % (0.0-1.0); EOS # 0.2 10^3/uL (0.0-0.5); EOS % 5.6 % (0.0-3.0); HEMATOCRIT 37.4 % (42.0-52.0); HEMOGLOBIN 12.8 g/dl (13.5-17.5); LYMPH # 1.2 10^3/uL (1.5-5.0); LYMPH % 34.3 % (24.0-44.0); MEAN CORPUSCULAR HEMOGLOBIN 31.3 pg (27.0-33.0); MEAN CORPUSCULAR HGB CONC 34.2 g/dl (32.0-36.5); MEAN CORPUSCULAR VOLUME 91.4 fl (80.0-96.0); MONO # 0.4 10^3/uL (0.0-0.8); MONO % 12.1 % (0.0-5.0); NEUTROPHILS # 1.5 10^3/uL (1.5-8.5); NEUTROPHILS % 45.6 % (36.0-66.0); RED BLOOD COUNT 4.09 10^6/uL (4.30-6.10); WHITE BLOOD COUNT 3.4 10^3/uL (4.0-10.0)
[2020-02-23 09:40] LABS: PLATELET COUNT, AUTOMATED 91 10^3/uL (150-450)
[2020-03-04 13:50] LABS: ALBUMIN 2.6 GM/DL (3.2-5.2); ALT/SGPT 21 U/L (12-78); BILIRUBIN,DIRECT 0.6 MG/DL (0.0-0.2); BILIRUBIN,TOTAL 1.3 MG/DL (0.2-1.0); BLOOD UREA NITROGEN 13 MG/DL (7-18); CALCIUM LEVEL 8.6 MG/DL (8.5-10.1); CARBON DIOXIDE LEVEL 24 MEQ/L (21-32); CHLORIDE LEVEL 111 MEQ/L (98-107); CREATININE FOR GFR 0.73 MG/DL (0.70-1.30); GLOMERULAR FILTRATION RATE > 60.0 (>56); GLUCOSE, FASTING 98 MG/DL (70-100); POTASSIUM SERUM 4.1 MEQ/L (3.5-5.1); SODIUM LEVEL 143 MEQ/L (136-145); TOTAL PROTEIN 5.8 GM/DL (6.4-8.2)
--- NOTE | 2020-03-13 16:06 | ECGEPIP ---
SINUS RHYTHM POSSIBLE LATERAL MYOCARDIAL INFARCTION, OF INDETERMINATE AGE ABNORMAL ECG LEFTWARD AXIS PROLONGED QTC NONSPECIFIC ST & T CHANGE NO PRIOR DUE TO DOWNTIME SEE SCANNED DOWNTIME REPORT MTDD
[2020-04-04 13:48] LABS: VENOUS BASE EXCESS -4.3 (-2.0-2.0); VENOUS HCO3 20.6 MEQ/L (23.0-27.0); VENOUS O2 SATURATION 87.1 % (60.0-80.0); VENOUS PARTIAL PRESSURE CO2 37.6 mmHg (38.0-50.0); VENOUS PH 7.357 UNITS (7.330-7.430); VENOUS STANDARD HCO3 20.7 MEQ/L; VENOUS TOTAL CO2 21.8 MEQ/L (24.0-28.0)
[2020-04-04 13:54] LABS: CK-MB VALUE MASS < 1.0 NG/ML (<3.6); CPK CREATINE PHOSPHOKINASE 53 U/L (39-308); MB/CK RELATIVE INDEX 1.88 (< OR =4); TROPONIN I < 0.02 NG/ML (< 0.10)
== END | disposition short-term general hospital (02) ==
LOC: M ED 05:25
DX: E72.20 Disorder of urea cycle metabolism, unspecified (principal); G93.40 Encephalopathy, unspecified; K21.9 Gastro-esophageal reflux disease without esophagitis; I47.1 Supraventricular tachycardia; Z87.19 Personal history of other diseases of the digestive system; Z79.899 Other long term (current) drug therapy; Z79.01 Long term (current) use of anticoagulants
CPT/HCPCS: 70450; 74177; 80048; 80076; 82140; 82553; 82803; 83605; 84484; 85025; 85049; 85055; 85610; 85730; 87040; 93005; 96360; 99285; Q9967; U0002

== ENCOUNTER → 2020-02-08 | Outpatient (REF) | payer OTHER ==
[~2020-02-08] MED LIST changes: -ISOVUE-370 76% 100ML VIAL As Ordered ONE; -LACTULOSE 20 GM/30 ML SYRUP UD As Ordered ONE; -LACTULOSE 20 GM/30 ML SYRUP UD ONE
[2020-03-29 08:11] LABS: INR 1.45
[2020-03-29 09:22] LABS: HEMOGLOBIN 12.7 g/dl (13.5-17.5); MEAN CORPUSCULAR HEMOGLOBIN 31.6 pg (27.0-33.0); RED BLOOD COUNT 4.02 10^6/uL (4.30-6.10); WHITE BLOOD COUNT 4.3 10^3/uL (4.0-10.0)
[2020-03-29 09:23] LABS: MEAN CORPUSCULAR HGB CONC 34.3 g/dl (32.0-36.5); PLATELET COUNT, AUTOMATED 119 10^3/uL (150-450)
[2020-04-02 16:01] LABS: ALBUMIN 2.6 GM/DL (3.2-5.2); ALT/SGPT 21 U/L (12-78); AMYLASE 49 U/L (25-115); BILIRUBIN,TOTAL 1.2 MG/DL (0.2-1.0); BLOOD UREA NITROGEN 11 MG/DL (7-18); CALCIUM LEVEL 8.4 MG/DL (8.5-10.1); CARBON DIOXIDE LEVEL 23 MEQ/L (21-32); CHLORIDE LEVEL 113 MEQ/L (98-107); CREATININE FOR GFR 0.66 MG/DL (0.70-1.30); GLOMERULAR FILTRATION RATE > 60.0 (>56); GLUCOSE, FASTING 56 MG/DL (70-100); LIPASE 167 U/L (73-393); POTASSIUM SERUM 4.3 MEQ/L (3.5-5.1); SODIUM LEVEL 140 MEQ/L (136-145); TOTAL PROTEIN 5.7 GM/DL (6.4-8.2)
== END ==
LOC: M LABWUC 11:20
PROVIDERS: ATTEND Nurse Practitioner
DX: G93.40 Encephalopathy, unspecified (principal); K74.60 Unspecified cirrhosis of liver

== ENCOUNTER → 2020-02-14 | Outpatient (CLI) | payer OTHER | LOC: M WUC 12:33 | PROVIDERS: ATTEND Nurse Practitioner | DX: G93.40 Encephalopathy, unspecified (principal) ==

== ENCOUNTER → 2020-02-18 | Outpatient (CLI) | payer OTHER ==
[2020-02-18 23:01] LABS: AMYLASE 44 U/L (25-115); LIPASE 121 U/L (73-393)
== END ==
LOC: M WUC 12:21
PROVIDERS: ATTEND Nurse Practitioner
DX: K85.10 Biliary acute pancreatitis without necrosis or infection (principal); K75.81 Nonalcoholic steatohepatitis (NASH)

== ENCOUNTER → 2020-02-18 | Outpatient (CLI) | payer OTHER ==
[2020-02-18 13:40] LABS: HEMATOCRIT 34.8 % (42.0-52.0); MEAN CORPUSCULAR HEMOGLOBIN 32.4 pg (27.0-33.0); MEAN CORPUSCULAR HGB CONC 34.5 g/dl (32.0-36.5); MEAN CORPUSCULAR VOLUME 94.1 fl (80.0-96.0); PLATELET COUNT, AUTOMATED 113 10^3/uL (150-450); WHITE BLOOD COUNT 4.8 10^3/uL (4.0-10.0)
[2020-02-18 13:50] LABS: INR 1.71; PROTHROMBIN TIME 20.4 SECONDS (11.8-14.0)
[2020-02-18 14:28] LABS: ALBUMIN 2.5 GM/DL (3.2-5.2); ALT/SGPT 21 U/L (12-78); BILIRUBIN,TOTAL 1.1 MG/DL (0.2-1.0); BLOOD UREA NITROGEN 11 MG/DL (7-18); CALCIUM LEVEL 8.1 MG/DL (8.5-10.1); CARBON DIOXIDE LEVEL 25 MEQ/L (21-32); CHLORIDE LEVEL 112 MEQ/L (98-107); CREATININE FOR GFR 0.75 MG/DL (0.70-1.30); GLOMERULAR FILTRATION RATE > 60.0 (>56); GLUCOSE, FASTING 69 MG/DL (70-100); POTASSIUM SERUM 4.4 MEQ/L (3.5-5.1); SODIUM LEVEL 142 MEQ/L (136-145); TOTAL PROTEIN 5.3 GM/DL (6.4-8.2)
== END ==
LOC: M WUC 12:18
PROVIDERS: ATTEND Nurse Practitioner
DX: K74.60 Unspecified cirrhosis of liver (principal)

== ENCOUNTER → 2020-02-18 | Outpatient (CLI) | payer OTHER | LOC: M WUC 12:13 | PROVIDERS: ATTEND Nurse Practitioner | DX: G93.40 Encephalopathy, unspecified (principal) ==

== ENCOUNTER → 2020-02-25 | Outpatient (CLI) | payer OTHER | LOC: M WUC 11:20 | PROVIDERS: ATTEND Nurse Practitioner | DX: G93.40 Encephalopathy, unspecified (principal) ==

== ENCOUNTER → 2020-03-03 | Outpatient (CLI) | payer OTHER | LOC: M WUC 10:52 | PROVIDERS: ATTEND Nurse Practitioner | DX: G93.40 Encephalopathy, unspecified (principal) ==

== ENCOUNTER → 2020-03-10 | Outpatient (CLI) | payer OTHER ==
[2020-03-10 12:09] LABS: HEMATOCRIT 38.2 % (42.0-52.0); HEMOGLOBIN 12.5 g/dl (13.5-17.5); MEAN CORPUSCULAR HEMOGLOBIN 31.5 pg (27.0-33.0); MEAN CORPUSCULAR HGB CONC 32.7 g/dl (32.0-36.5); MEAN CORPUSCULAR VOLUME 96.2 fl (80.0-96.0); PLATELET COUNT, AUTOMATED 105 10^3/uL (150-450); RED BLOOD COUNT 3.97 10^6/uL (4.30-6.10); WHITE BLOOD COUNT 3.9 10^3/uL (4.0-10.0)
[2020-03-10 12:19] LABS: INR 1.47; PROTHROMBIN TIME 18.1 SECONDS (11.8-14.0)
[2020-03-10 12:34] LABS: ALBUMIN 2.5 GM/DL (3.2-5.2); ALT/SGPT 22 U/L (12-78); AMYLASE 46 U/L (25-115); BILIRUBIN,TOTAL 1.2 MG/DL (0.2-1.0); BLOOD UREA NITROGEN 12 MG/DL (7-18); CALCIUM LEVEL 8.3 MG/DL (8.5-10.1); CARBON DIOXIDE LEVEL 25 MEQ/L (21-32); CHLORIDE LEVEL 110 MEQ/L (98-107); CREATININE FOR GFR 0.78 MG/DL (0.70-1.30); GLOMERULAR FILTRATION RATE > 60.0 (>56); GLUCOSE, FASTING 165 MG/DL (70-100); LIPASE 120 U/L (73-393); POTASSIUM SERUM 4.3 MEQ/L (3.5-5.1); SODIUM LEVEL 142 MEQ/L (136-145); TOTAL PROTEIN 5.6 GM/DL (6.4-8.2)
== END ==
LOC: M WUC 09:46
PROVIDERS: ATTEND Nurse Practitioner
DX: K74.60 Unspecified cirrhosis of liver (principal)

== ENCOUNTER → 2020-03-10 | Outpatient (CLI) | payer OTHER | LOC: M WUC 09:49 | PROVIDERS: ATTEND Nurse Practitioner | DX: G93.40 Encephalopathy, unspecified (principal) ==

== ENCOUNTER → 2020-03-17 | Outpatient (CLI) | payer OTHER | LOC: M WUC 10:16 | PROVIDERS: ATTEND Nurse Practitioner | DX: G93.40 Encephalopathy, unspecified (principal) ==

== ENCOUNTER → 2020-03-17 | Outpatient (CLI) | payer OTHER ==
[2020-03-17 12:26] LABS: BASO # 0.1 10^3/uL (0.0-0.2); BASO % 1.4 % (0.0-1.0); EOS # 0.3 10^3/uL (0.0-0.5); EOS % 8.3 % (0.0-3.0); HEMATOCRIT 35.3 % (42.0-52.0); HEMOGLOBIN 12.2 g/dl (13.5-17.5); LYMPH % 27.8 % (24.0-44.0); MEAN CORPUSCULAR HEMOGLOBIN 32.6 pg (27.0-33.0); MEAN CORPUSCULAR HGB CONC 34.6 g/dl (32.0-36.5); MEAN CORPUSCULAR VOLUME 94.4 fl (80.0-96.0); MONO # 0.5 10^3/uL (0.0-0.8); MONO % 14.9 % (0.0-5.0); NEUTROPHILS # 1.7 10^3/uL (1.5-8.5); NEUTROPHILS % 47.3 % (36.0-66.0); PLATELET COUNT, AUTOMATED 107 10^3/uL (150-450); RED BLOOD COUNT 3.74 10^6/uL (4.30-6.10); WHITE BLOOD COUNT 3.5 10^3/uL (4.0-10.0)
[2020-03-17 13:03] LABS: BLOOD UREA NITROGEN 12 MG/DL (7-18); CALCIUM LEVEL 8.2 MG/DL (8.5-10.1); CARBON DIOXIDE LEVEL 26 MEQ/L (21-32); CHLORIDE LEVEL 110 MEQ/L (98-107); CREATININE FOR GFR 0.69 MG/DL (0.70-1.30); GLOMERULAR FILTRATION RATE > 60.0 (>56); GLUCOSE, FASTING 80 MG/DL (70-100); POTASSIUM SERUM 4.6 MEQ/L (3.5-5.1); SODIUM LEVEL 141 MEQ/L (136-145)
[2020-03-17 13:04] LABS: ALBUMIN 2.4 GM/DL (3.2-5.2); ALT/SGPT 20 U/L (12-78); BILIRUBIN,TOTAL 1.2 MG/DL (0.2-1.0); CHOLESTEROL LEVEL 119 MG/DL (<200); CHOLESTEROL RISK RATIO 1.859 (<5); FERRITIN 374 NG/ML (26-388); HDL CHOLESTEROL 64 MG/DL (>40); IRON (FE) 138 UG/DL (65-175); LDL CHOLESTEROL 40 MG/DL (<100); MAGNESIUM LEVEL 1.8 MG/DL (1.8-2.4); NON-HDL-C 55 MG/DL; PERCENT SATURATION 76.2 % (19.7-50.0); PHOSPHORUS LEVEL 3.2 MG/DL (2.5-4.9); PROSTATIC SPECIFIC AG MONITOR 0.31 NG/ML (< 4.00); TOTAL IRON BINDING CAPACITY 181 UG/DL (250-450); TOTAL PROTEIN 5.3 GM/DL (6.4-8.2); TRIGLYCERIDES LEVEL 75 MG/DL (<150)
[2020-03-17 13:05] LABS: TOTAL 25(OH) VITAMIN D 33.3 NG/ML (30.0-100.0); VITAMIN B12 LEVEL 1379 PG/ML (247-911)
[2020-03-17 14:35] LABS: HEMOGLOBIN A1c 4.6 %
== END ==
LOC: M WUC 10:20
PROVIDERS: ATTEND Family Medicine
DX: R18.8 Other ascites (principal); K80.10 Calculus of gallbladder with chronic cholecystitis without obstruction; K74.60 Unspecified cirrhosis of liver; N62 Hypertrophy of breast; K21.9 Gastro-esophageal reflux disease without esophagitis; K72.90 Hepatic failure, unspecified without coma; Z98.84 Bariatric surgery status; Z12.5 Encounter for screening for malignant neoplasm of prostate; D69.6 Thrombocytopenia, unspecified; G47.30 Sleep apnea, unspecified; I47.1 Supraventricular tachycardia

== ENCOUNTER → 2020-03-24 | Outpatient (CLI) | payer OTHER | LOC: M WUC 11:17 | PROVIDERS: ATTEND Nurse Practitioner | DX: G93.40 Encephalopathy, unspecified (principal) ==

== ENCOUNTER → 2020-03-31 | Outpatient (CLI) | payer OTHER | LOC: M WUC 09:51 | PROVIDERS: ATTEND Nurse Practitioner | DX: G93.40 Encephalopathy, unspecified (principal) ==

== ENCOUNTER → 2020-04-08 | Outpatient (CLI) | payer OTHER ==
[2020-04-08 11:29] LABS: HEMATOCRIT 36.6 % (42.0-52.0); HEMOGLOBIN 12.2 g/dl (13.5-17.5); MEAN CORPUSCULAR HEMOGLOBIN 30.8 pg (27.0-33.0); MEAN CORPUSCULAR HGB CONC 33.3 g/dl (32.0-36.5); MEAN CORPUSCULAR VOLUME 92.4 fl (80.0-96.0); PLATELET COUNT, AUTOMATED 100 10^3/uL (150-450); RED BLOOD COUNT 3.96 10^6/uL (4.30-6.10); WHITE BLOOD COUNT 4.3 10^3/uL (4.0-10.0)
[2020-04-08 11:48] LABS: INR 1.79; PROTHROMBIN TIME 21.2 SECONDS (12.5-14.3)
[2020-04-08 12:05] LABS: ALBUMIN 2.6 GM/DL (3.2-5.2); ALT/SGPT 22 U/L (12-78); BILIRUBIN,TOTAL 1.1 MG/DL (0.2-1.0); BLOOD UREA NITROGEN 10 MG/DL (7-18); CALCIUM LEVEL 8.5 MG/DL (8.5-10.1); CARBON DIOXIDE LEVEL 25 MEQ/L (21-32); CHLORIDE LEVEL 110 MEQ/L (98-107); CREATININE FOR GFR 0.76 MG/DL (0.70-1.30); GLOMERULAR FILTRATION RATE > 60.0 (>56); GLUCOSE, FASTING 93 MG/DL (70-100); POTASSIUM SERUM 4.5 MEQ/L (3.5-5.1); SODIUM LEVEL 140 MEQ/L (136-145); TOTAL PROTEIN 5.8 GM/DL (6.4-8.2)
== END ==
LOC: M WUC 09:40
PROVIDERS: ATTEND Nurse Practitioner
DX: K74.60 Unspecified cirrhosis of liver (principal)

== ENCOUNTER → 2020-04-08 | Outpatient (CLI) | payer OTHER ==
[2020-04-08 11:52] LABS: AMYLASE 48 U/L (25-115); LIPASE 164 U/L (73-393)
== END ==
LOC: M WUC 09:43
PROVIDERS: ATTEND Nurse Practitioner
DX: K85.10 Biliary acute pancreatitis without necrosis or infection (principal); K75.81 Nonalcoholic steatohepatitis (NASH)

== ENCOUNTER → 2020-04-08 | Outpatient (CLI) | payer OTHER | LOC: M WUC 09:46 | PROVIDERS: ATTEND Nurse Practitioner | DX: G93.40 Encephalopathy, unspecified (principal) ==

== ENCOUNTER → 2020-04-21 | Outpatient (CLI) | payer OTHER | LOC: M WUC 09:21 | PROVIDERS: ATTEND Nurse Practitioner | DX: G93.40 Encephalopathy, unspecified (principal) ==

== ENCOUNTER → 2020-05-13 | Outpatient (CLI) | payer OTHER | LOC: M WUC 11:30 | PROVIDERS: ATTEND Nurse Practitioner | DX: G93.40 Encephalopathy, unspecified (principal) ==

== ENCOUNTER → 2020-05-13 | Outpatient (CLI) | payer OTHER ==
[2020-05-13 13:17] LABS: HEMOGLOBIN 12.2 g/dl (13.5-17.5); MEAN CORPUSCULAR HEMOGLOBIN 30.6 pg (27.0-33.0); MEAN CORPUSCULAR HGB CONC 32.1 g/dl (32.0-36.5); MEAN CORPUSCULAR VOLUME 95.2 fl (80.0-96.0); PLATELET COUNT, AUTOMATED 103 10^3/uL (150-450); RED BLOOD COUNT 3.99 10^6/uL (4.30-6.10); WHITE BLOOD COUNT 4.6 10^3/uL (4.0-10.0)
[2020-05-13 13:26] LABS: INR 1.75; PROTHROMBIN TIME 20.8 SECONDS (12.5-14.3)
[2020-05-13 14:05] LABS: ALBUMIN 2.6 GM/DL (3.2-5.2); ALT/SGPT 17 U/L (12-78); AMYLASE 35 U/L (25-115); BILIRUBIN,TOTAL 1.3 MG/DL (0.2-1.0); BLOOD UREA NITROGEN 14 MG/DL (7-18); CALCIUM LEVEL 8.5 MG/DL (8.5-10.1); CARBON DIOXIDE LEVEL 26 MEQ/L (21-32); CHLORIDE LEVEL 110 MEQ/L (98-107); GLOMERULAR FILTRATION RATE > 60.0 (>56); GLUCOSE, FASTING 115 MG/DL (70-100); LIPASE 162 U/L (73-393); POTASSIUM SERUM 4.5 MEQ/L (3.5-5.1); SODIUM LEVEL 142 MEQ/L (136-145); TOTAL PROTEIN 5.7 GM/DL (6.4-8.2)
== END ==
LOC: M WUC 11:33
PROVIDERS: ATTEND Nurse Practitioner
DX: K74.60 Unspecified cirrhosis of liver (principal); K85.10 Biliary acute pancreatitis without necrosis or infection; K75.81 Nonalcoholic steatohepatitis (NASH)

== ENCOUNTER → 2020-06-12 | Outpatient (CLI) | payer OTHER ==
[2020-06-12 11:22] LABS: HEMATOCRIT 37.5 % (42.0-52.0); HEMOGLOBIN 12.6 g/dl (13.5-17.5); MEAN CORPUSCULAR HEMOGLOBIN 31.9 pg (27.0-33.0); MEAN CORPUSCULAR HGB CONC 33.6 g/dl (32.0-36.5); MEAN CORPUSCULAR VOLUME 94.9 fl (80.0-96.0); RED BLOOD COUNT 3.95 10^6/uL (4.30-6.10); WHITE BLOOD COUNT 3.8 10^3/uL (4.0-10.0)
[2020-06-12 11:40] LABS: PLATELET COUNT, AUTOMATED 93 10^3/uL (150-450)
[2020-06-12 11:42] LABS: INR 1.48; PROTHROMBIN TIME 18.2 SECONDS (12.5-14.3)
[2020-06-12 11:47] LABS: ALBUMIN 2.7 GM/DL (3.2-5.2); ALT/SGPT 20 U/L (12-78); AMYLASE 48 U/L (25-115); BILIRUBIN,TOTAL 1.3 MG/DL (0.2-1.0); BLOOD UREA NITROGEN 11 MG/DL (7-18); CALCIUM LEVEL 8.3 MG/DL (8.5-10.1); CARBON DIOXIDE LEVEL 28 MEQ/L (21-32); CHLORIDE LEVEL 112 MEQ/L (98-107); CREATININE FOR GFR 0.73 MG/DL (0.70-1.30); GLOMERULAR FILTRATION RATE > 60.0 (>56); GLUCOSE, FASTING 109 MG/DL (70-100); LIPASE 156 U/L (73-393); POTASSIUM SERUM 4.1 MEQ/L (3.5-5.1); SODIUM LEVEL 143 MEQ/L (136-145); TOTAL PROTEIN 5.6 GM/DL (6.4-8.2)
== END ==
LOC: M WUC 09:28
PROVIDERS: ATTEND Nurse Practitioner
DX: K74.60 Unspecified cirrhosis of liver (principal)

== ENCOUNTER → 2020-06-12 | Outpatient (CLI) | payer OTHER | LOC: M WUC 09:32 | PROVIDERS: ATTEND Nurse Practitioner | DX: G93.40 Encephalopathy, unspecified (principal) ==

== ENCOUNTER → 2020-06-29 | Outpatient (CLI) | payer OTHER ==
[2020-06-29 13:03] LABS: HEMATOCRIT 35.9 % (42.0-52.0); HEMOGLOBIN 11.8 g/dl (13.5-17.5); MEAN CORPUSCULAR HGB CONC 32.9 g/dl (32.0-36.5); MEAN CORPUSCULAR VOLUME 94.2 fl (80.0-96.0); PLATELET COUNT, AUTOMATED 105 10^3/uL (150-450); RED BLOOD COUNT 3.81 10^6/uL (4.30-6.10); WHITE BLOOD COUNT 3.3 10^3/uL (4.0-10.0)
[2020-06-29 13:18] LABS: INR 1.6; PROTHROMBIN TIME 19.4 SECONDS (12.5-14.3)
[2020-06-29 13:35] LABS: ALBUMIN 2.5 GM/DL (3.2-5.2); ALT/SGPT 21 U/L (12-78); AMYLASE 40 U/L (25-115); BILIRUBIN,TOTAL 1.3 MG/DL (0.2-1.0); BLOOD UREA NITROGEN 8 MG/DL (7-18); CALCIUM LEVEL 8.2 MG/DL (8.5-10.1); CARBON DIOXIDE LEVEL 28 MEQ/L (21-32); CHLORIDE LEVEL 111 MEQ/L (98-107); CREATININE FOR GFR 0.81 MG/DL (0.70-1.30); GLOMERULAR FILTRATION RATE > 60.0 (>56); GLUCOSE, FASTING 97 MG/DL (70-100); LIPASE 179 U/L (73-393); POTASSIUM SERUM 4.3 MEQ/L (3.5-5.1); SODIUM LEVEL 142 MEQ/L (136-145); TOTAL PROTEIN 5.5 GM/DL (6.4-8.2)
== END ==
LOC: M WUC 10:20
PROVIDERS: ATTEND Nurse Practitioner
DX: K74.60 Unspecified cirrhosis of liver (principal); K75.81 Nonalcoholic steatohepatitis (NASH); K85.10 Biliary acute pancreatitis without necrosis or infection

== ENCOUNTER → 2020-07-30 | Outpatient (CLI) | payer OTHER ==
[2020-07-30 13:25] LABS: HEMOGLOBIN 12.1 g/dl (13.5-17.5); MEAN CORPUSCULAR HEMOGLOBIN 31.2 pg (27.0-33.0); MEAN CORPUSCULAR HGB CONC 33.6 g/dl (32.0-36.5); MEAN CORPUSCULAR VOLUME 92.8 fl (80.0-96.0); PLATELET COUNT, AUTOMATED 108 10^3/uL (150-450); RED BLOOD COUNT 3.88 10^6/uL (4.30-6.10); WHITE BLOOD COUNT 3.9 10^3/uL (4.0-10.0)
[2020-07-30 13:38] LABS: INR 1.71; PROTHROMBIN TIME 20.4 SECONDS (12.5-14.3)
[2020-07-30 13:58] LABS: ALBUMIN 2.4 GM/DL (3.2-5.2); ALT/SGPT 18 U/L (12-78); AMYLASE 36 U/L (25-115); BILIRUBIN,TOTAL 1.2 MG/DL (0.2-1.0); BLOOD UREA NITROGEN 9 MG/DL (7-18); CALCIUM LEVEL 8.6 MG/DL (8.5-10.1); CARBON DIOXIDE LEVEL 27 MEQ/L (21-32); CHLORIDE LEVEL 109 MEQ/L (98-107); CREATININE FOR GFR 0.69 MG/DL (0.70-1.30); GLOMERULAR FILTRATION RATE > 60.0 (>56); GLUCOSE, FASTING 88 MG/DL (70-100); LIPASE 174 U/L (73-393); POTASSIUM SERUM 4.4 MEQ/L (3.5-5.1); SODIUM LEVEL 141 MEQ/L (136-145); TOTAL PROTEIN 5.4 GM/DL (6.4-8.2)
== END ==
LOC: M WUC 10:44
PROVIDERS: ATTEND Nurse Practitioner
DX: K74.60 Unspecified cirrhosis of liver (principal); K85.10 Biliary acute pancreatitis without necrosis or infection; K75.81 Nonalcoholic steatohepatitis (NASH)

== ENCOUNTER → 2020-09-01 | Outpatient (CLI) | payer OTHER ==
[~2020-09-01] MED LIST changes: -VITA-157 PO; +VITAE40CA PO
[2020-09-01 12:57] LABS: INR 1.61; PROTHROMBIN TIME 19.5 SECONDS (12.5-14.3)
[2020-09-01 13:11] LABS: ALBUMIN 2.9 GM/DL (3.2-5.2); ALT/SGPT 18 U/L (12-78); BILIRUBIN,DIRECT 0.6 MG/DL (0.0-0.2); BILIRUBIN,TOTAL 1.4 MG/DL (0.2-1.0); BLOOD UREA NITROGEN 11 MG/DL (7-18); CALCIUM LEVEL 8.6 MG/DL (8.5-10.1); CARBON DIOXIDE LEVEL 28 MEQ/L (21-32); CHLORIDE LEVEL 108 MEQ/L (98-107); CREATININE FOR GFR 0.81 MG/DL (0.70-1.30); GLOMERULAR FILTRATION RATE > 60.0 (>56); GLUCOSE, FASTING 83 MG/DL (70-100); POTASSIUM SERUM 4.2 MEQ/L (3.5-5.1); SODIUM LEVEL 140 MEQ/L (136-145)
== END ==
LOC: M WUC 09:42
DX: K74.60 Unspecified cirrhosis of liver (principal)

== ENCOUNTER → 2020-10-07 | Outpatient (CLI) | payer OTHER ==
[2020-10-07 11:56] LABS: INR 1.78; PROTHROMBIN TIME 21.1 SECONDS (12.5-14.3)
[2020-10-07 16:07] LABS: BLOOD UREA NITROGEN 11 MG/DL (7-18); CARBON DIOXIDE LEVEL 25 MEQ/L (21-32); CHLORIDE LEVEL 108 MEQ/L (98-107); GLOMERULAR FILTRATION RATE > 60.0 (>56); GLUCOSE, FASTING 87 MG/DL (70-100); POTASSIUM SERUM 4.2 MEQ/L (3.5-5.1); SODIUM LEVEL 141 MEQ/L (136-145)
[2020-10-07 16:08] LABS: ALBUMIN 2.7 GM/DL (3.2-5.2); ALT/SGPT 18 U/L (12-78); BILIRUBIN,DIRECT 0.6 MG/DL (0.0-0.2); BILIRUBIN,TOTAL 1.2 MG/DL (0.2-1.0); TOTAL PROTEIN 5.4 GM/DL (6.4-8.2)
== END ==
LOC: M WUC 08:47
PROVIDERS: ATTEND Nurse Practitioner Family
DX: K74.60 Unspecified cirrhosis of liver (principal)

== ENCOUNTER → 2020-10-30 | Outpatient (CLI) | payer OTHER ==
[2020-10-30 11:14] LABS: BASO # 0.1 10^3/uL (0.0-0.2); BASO % 1.7 % (0.0-1.0); EOS # 0.3 10^3/uL (0.0-0.5); EOS % 8.2 % (0.0-3.0); HEMATOCRIT 36.5 % (42.0-52.0); HEMOGLOBIN 12.4 g/dl (13.5-17.5); LYMPH # 1.5 10^3/uL (1.5-5.0); LYMPH % 36.2 % (24.0-44.0); MEAN CORPUSCULAR HEMOGLOBIN 32.5 pg (27.0-33.0); MEAN CORPUSCULAR VOLUME 95.5 fl (80.0-96.0); MONO # 0.5 10^3/uL (0.0-0.8); MONO % 12.9 % (2.0-8.0); NEUTROPHILS # 1.7 10^3/uL (1.5-8.5); PLATELET COUNT, AUTOMATED 112 10^3/uL (150-450); RED BLOOD COUNT 3.82 10^6/uL (4.30-6.10)
[2020-10-30 12:09] LABS: ALBUMIN 2.6 GM/DL (3.2-5.2); ALT/SGPT 16 U/L (12-78); BILIRUBIN,TOTAL 1.4 MG/DL (0.2-1.0); BLOOD UREA NITROGEN 7 MG/DL (7-18); CALCIUM LEVEL 8.6 MG/DL (8.5-10.1); CARBON DIOXIDE LEVEL 26 MEQ/L (21-32); CHLORIDE LEVEL 109 MEQ/L (98-107); CREATININE FOR GFR 0.56 MG/DL (0.70-1.30); GLOMERULAR FILTRATION RATE > 60.0 (>56); GLUCOSE, FASTING 81 MG/DL (70-100); POTASSIUM SERUM 4.1 MEQ/L (3.5-5.1); PREALBUMIN 4.6 MG/DL (20.0-40.0); RHEUMATOID FACTOR QUANT < 10.0 IU/ML (<15.0); SODIUM LEVEL 139 MEQ/L (136-145); TOTAL PROTEIN 5.5 GM/DL (6.4-8.2)
== END ==
LOC: M WUC 09:18
DX: R18.8 Other ascites (principal); K80.10 Calculus of gallbladder with chronic cholecystitis without obstruction; K81.1 Chronic cholecystitis; K74.60 Unspecified cirrhosis of liver; N62 Hypertrophy of breast; K21.9 Gastro-esophageal reflux disease without esophagitis; K72.90 Hepatic failure, unspecified without coma; Z98.84 Bariatric surgery status; I10 Essential (primary) hypertension; M16.9 Osteoarthritis of hip, unspecified; D69.6 Thrombocytopenia, unspecified; I47.1 Supraventricular tachycardia; G47.30 Sleep apnea, unspecified

== ENCOUNTER → 2020-10-30 | Outpatient (CLI) | payer OTHER ==
[2020-10-30 11:24] LABS: INR 1.61; PROTHROMBIN TIME 19.5 SECONDS (12.5-14.3)
[2020-10-30 12:08] LABS: BLOOD UREA NITROGEN 8 MG/DL (7-18); CALCIUM LEVEL 8.9 MG/DL (8.5-10.1); CARBON DIOXIDE LEVEL 26 MEQ/L (21-32); CHLORIDE LEVEL 109 MEQ/L (98-107); CREATININE FOR GFR 0.56 MG/DL (0.70-1.30); GLOMERULAR FILTRATION RATE > 60.0 (>56); GLUCOSE, FASTING 79 MG/DL (70-100); SODIUM LEVEL 140 MEQ/L (136-145)
[2020-10-30 12:09] LABS: ALBUMIN 2.7 GM/DL (3.2-5.2); ALT/SGPT 17 U/L (12-78); BILIRUBIN,DIRECT 0.7 MG/DL (0.0-0.2); BILIRUBIN,TOTAL 1.4 MG/DL (0.2-1.0); TOTAL PROTEIN 5.7 GM/DL (6.4-8.2)
== END ==
LOC: M WUC 09:23
PROVIDERS: ATTEND Nurse Practitioner Family
DX: K74.60 Unspecified cirrhosis of liver (principal)

== ENCOUNTER 2020-11-15 20:41 | Inpatient (IN) | payer OTHER ==
[~2020-11-15] VITALS: Ht 175.3 cm; Wt 94.2 kg
[2020-11-15] MEDS ORDERED: OXYC-517 PO (21:01)
[2020-11-15] MEDS ORDERED: MORPHINE 4 MG/ML 1ML VIAL/SYRINGE (J2270) IV ONE ×2 (21:05→22:45)
[2020-11-15] MEDS ORDERED: NS 1,000 ML IV SCH (21:05)
[2020-11-15] MEDS ORDERED: ONDANSETRON 4MG/2ML VIAL IV ONE (21:05)
[2020-11-15 21:49] LABS: BASO # 0.1 10^3/uL (0.0-0.2); BASO % 0.8 % (0.0-1.0); EOS # 0.1 10^3/uL (0.0-0.5); EOS % 1.3 % (0.0-3.0); HEMATOCRIT 36.7 % (42.0-52.0); HEMOGLOBIN 12.6 g/dl (13.5-17.5); LYMPH # 0.6 10^3/uL (1.5-5.0); LYMPH % 8.3 % (24.0-44.0); MEAN CORPUSCULAR HGB CONC 34.3 g/dl (32.0-36.5); MEAN CORPUSCULAR VOLUME 93.1 fl (80.0-96.0); MONO # 0.5 10^3/uL (0.0-0.8); MONO % 6.2 % (2.0-8.0); NEUTROPHILS # 6.3 10^3/uL (1.5-8.5); RED BLOOD COUNT 3.94 10^6/uL (4.30-6.10); WHITE BLOOD COUNT 7.6 10^3/uL (4.0-10.0)
[2020-11-15 22:00] LABS: INR 1.58; PROTHROMBIN TIME 19.2 SECONDS (12.5-14.3)
[2020-11-15] MEDS: GASTROGRAFIN SOLUTION 30ML PO SCH ×2 (22:00→22:48)
[2020-11-15 22:01] LABS: PARTIAL THROMBOPLASTIN TIME 39.4 SECONDS (24.2-38.5)
[2020-11-15 22:07] LABS: PLATELET COUNT, AUTOMATED 78 10^3/uL (150-450)
[2020-11-15 22:35] LABS: ALBUMIN 2.4 GM/DL (3.2-5.2); ALT/SGPT 18 U/L (12-78); BILIRUBIN,DIRECT 1.2 MG/DL (0.0-0.2); BILIRUBIN,TOTAL 2.6 MG/DL (0.2-1.0); BLOOD UREA NITROGEN 11 MG/DL (7-18); CALCIUM LEVEL 7.8 MG/DL (8.5-10.1); CARBON DIOXIDE LEVEL 22 MEQ/L (21-32); CHLORIDE LEVEL 113 MEQ/L (98-107); CK-MB VALUE MASS < 1.0 NG/ML (<3.6); CPK CREATINE PHOSPHOKINASE 78 U/L (39-308); CREATININE FOR GFR 0.56 MG/DL (0.70-1.30); GLOMERULAR FILTRATION RATE > 60.0 (>56); GLUCOSE, FASTING 91 MG/DL (70-100); LIPASE 17158 U/L (73-393); MB/CK RELATIVE INDEX 1.28 (< OR =4); POTASSIUM SERUM 4.4 MEQ/L (3.5-5.1); SODIUM LEVEL 143 MEQ/L (136-145); TOTAL PROTEIN 5.4 GM/DL (6.4-8.2); TROPONIN I < 0.02 NG/ML (< 0.10)
[2020-11-15] MEDS ORDERED: ISOVUE-370 76% 100ML VIAL As Ordered ONE (22:48)
[2020-11-15 23:44] LABS: RSV AMPLIFICATION NEGATIVE (NEGATIVE)
--- NOTE | 2020-11-15 23:45 | REPVR ---
PROCEDURE INFORMATION: Exam: CT Abdomen And Pelvis With Contrast Exam date and time: 11/15/2020 10:59 PM Age: 60 years old Clinical indication: Other: Gen abd pain vomiting TECHNIQUE: Imaging protocol: Computed tomography of the abdomen and pelvis with contrast. Radiation optimization: All CT scans at this facility use at least one of these dose optimization techniques: automated exposure control; mA and/or kV adjustment per patient size (includes targeted exams where dose is matched to clinical indication); or iterative reconstruction. Contrast material: ISOVUE 370; Contrast volume: 100 ml; Contrast route: INTRAVENOUS (IV); COMPARISON: CT ABD/PEL W/IV ORAL CONTRAS 01/20/2020 8:11 AM FINDINGS: Lungs: Minimal bilateral lower lobe fibro-atelectatic change. Pleural spaces: Minimal right pleural effusion and trace left pleural effusion. Liver: Nodular surface of the liver which is relatively small consistent with cirrhosis. There is a TIPS shunt in position. Multiple portal venous collaterals are noted in the central mesentery of the lower abdomen. Gallbladder and bile ducts: See "Stomach and bowel" finding. Pancreas: Peripancreatic edema and edematous thickening of the anterior pararenal fascia bilaterally and is greater than in other parts of the abdomen and may reflect pancreatitis. Spleen: The spleen measures 12.9 cm. Adrenal glands: Normal. No mass. Kidneys and ureters: Normal. No hydronephrosis. Stomach and bowel: Mural lipoma involving a segment of distal ileum in the right lower quadrant measuring approximately 1.9 x 1.8 x 1.7 cm. Layering faint stones or sludge in the gallbladder which is mildly distended measuring 5.4 cm in diameter. Status post gastric bypass. Appendix: A normal appendix is seen. Intraperitoneal space: Mild peritoneal ascites. Vasculature: Unremarkable. No abdominal aortic aneurysm. Lymph nodes: Unremarkable. No enlarged lymph nodes. Urinary bladder: Unremarkable as visualized. Reproductive: Unremarkable as visualized. Bones/joints: Unremarkable. No acute fracture. Soft tissues: Bilateral gynecomastia. Small right inguinal hernia containing fluid and some fat. IMPRESSION: 1. Mild peritoneal ascites, increased since 01/20/2020. 2. Hepatic cirrhosis with portal venous collateralization and TIPS shunt in position. There is also borderline splenomegaly. 3. Status post gastric bypass. 4. Distended gallbladder with faint stones or sludge layering posteriorly. 5. Minimal right pleural effusion and trace left pleural effusion which are new or increased since the prior study. 6. Mural lipoma of the distal ileum which is similar to the prior study. 7. Peripancreatic edema which is locally greater than elsewhere suggesting mild acute pancreatitis. 8. Small right inguinal hernia. Electronically signed by: Randy Webb On 11/15/2020 23:45:29 PM
--- NOTE | 2020-11-15 23:59 | HPEPDOC ---
[facility] Medical History & Physical Date of Admission November 16, 2020 Date of Service: November 16, 2020 Other Provider Lu Leal NP Attending Physician: SAUD BLANK MD Vital Signs TIME OF SERVICE: 1230AM CHIEF COMPLAINT: abdominal pain HISTORY OF PRESENT ILLNESS: This 60 yr old M developed 8/10 abdominal pain that radiates to his back is made worse by eating and is typical of the pain that he has when he has acute pancreatitis. He thinks that the acute pancreatitis is due to a bad gallbladder but was told that it would be best to perform the cholecystectomy at the same time as his liver transplant. He was told that his transplant will be expedited when his MELD score in the 20s; his most recent MELD score was about 15. His Clipping Marker is Dr Workman at [place] [address] [phone]. He denies having fevers but has had non-bloody vomitus. 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 FAMILY HISTORY: Mother breast cancer/ Father of cancer / Brother had liver cancer and a liver transplant/ all of his children have BASS ALLERGIES: Please see below. HOME MEDICATIONS: Please see below. PHYSICAL EXAMINATION: Vital Signs Date Time Temp Pulse Resp B/P (MAP) Pulse Ox O2 Delivery O2 Flow Rate FiO2 11/15/20 20:42 72 18 125/68 99 Room Air 11/15/20 20:58 98.5 GENERAL APPEARANCE: well nourished and developed / appears to be in pain HEENT: slight jaundice / MMM &P CARDIOVASCULAR: RRR/NMRG LUNGS: CTAB on RA ABDOMEN: contour convex / no rizo turners sign MUSCULOSKELETAL: NCAT INTEGUMENT: slight jaundice/ not flushed or diaphoretic NEUROLOGICAL: CN 2-12 intact / speech not dysarthric PSYCHIATRIC: A&O x 3 /able to understand and follow all commands LABORATORY DATA: Immature Granulocyte % (Auto) 0.4, Neutrophils (%) (Auto) 83.0H, Lymphocytes (%) (Auto) 8.3L, Monocytes (%) (Auto) 6.2, Eosinophils (%) (Auto) 1.3, Basophils (%) (Auto) 0.8, Neutrophils # (Auto) 6.3, Lymphocytes # (Auto) 0.6L, Monocytes # (Auto) 0.5, Eosinophils # (Auto) 0.1, Basophils # (Auto) 0.1, Nucleated Red Blood Cells % (auto) 0.0, Immature Platelet Fraction 3.1, Prothrombin Time 19.2H, Prothromb Time International Ratio 1.58, Activated Partial Thromboplast Time 39.4H, Anion Gap 8, Glomerular Filtration Rate > 60.0, Calcium Level 7.8L, Total Bilirubin 2.6H, Direct Bilirubin 1.2H, Aspartate Amino Transf (AST/SGOT) 46H, Alanine Aminotransferase (ALT/SGPT) 18, Alkaline Phosphatase 113, Total Creatine Kinase 78, Creatine Kinase MB < 1.0, Creatine Kinase MB Relative Index 1.28, Troponin I < 0.02, Total Protein 5.4L, Albumin 2.4L, Albumin/Globulin Ratio 0.8, Lipase [id number] IMAGING: CT abd/pelvis IMPRESSION: 1. Mild peritoneal ascites, increased since 01/20/2020. 2. Hepatic cirrhosis with portal venous collateralization and TIPS shunt in position. There is also borderline splenomegaly. 3. Status post gastric bypass. 4. Distended gallbladder with faint stones or sludge layering posteriorly. 5. Minimal right pleural effusion and trace left pleural effusion which are new or increased since the prior study. 6. Mural lipoma of the distal ileum which is similar to the prior study. 7. Peripancreatic edema which is locally greater than elsewhere suggesting mild acute pancreatitis. 8. Small right inguinal hernia. MICROBIOLOGY: Coronavirus (COVID-19)(PCR) NEGATIVE, Influenza Type A (RT-PCR) NEGATIVE, Influenza Type B (RT-PCR) NEGATIVE, Respiratory Syncytial Virus (PCR) NEGATIVE ASSESSMENT: Mr. Fuller is a 60 yr old w BASS related cirrhosis s/p TIPS (2019) complicated by ascites, bicytopenia, splenomegaly and episodes of hepatic encephalopathy, recurrent pancreatitis, PE, & hx of pleural effusion requiring thoracentesis who presented w c/o abdominal pain and will be admitted primarily for acute pancreatitis. PLAN: 1 Acute Pancreatitis Diagnosis based on Modified Marcia Criteria patient has pancreatitis because of the presence of 2/3 of: abdominal pain + elevated lipase + CT findings c/w pancreatitis Per patient the primary cause is his gallbladder gallstones ?; today his Alk Phos is wnl. [place] Plan: admit to the medical floor / NPO for now / IVF / Toradol & fentanyl PRN for pain 2 Worsening Ascites Plan: f/u strict Is and Os and daily weights / stop all NSAIDs, ACEI and ARBs / although this this is chronic or rebound ascites he should have a repeat paracentesis (to screen for SBP) / if he develops a temp >100 or 37.8, or change in mental status prior to paracentesis we will start empiric antibiotics for SBP in the meanwhile we will collect blood cx and Ucx / c/w 3 Bicytopenia Likely due to liver cirrhosis & splenomegaly Plan: f/u CBC 4 BASS related cirrhosis w hx of HE MELD Score = 15 points today Child-Marin Score = 10 points = Class C (elective surgeries are usually avoided in pts w class C this explains why his joint surgeries have been deferred) Plan: c/w rifaximin, lactulose, Lasix, spironolactone, Vitamin E (for BASS), atenolol (suspect he has also had had esophageal varices) 5 hx of PE Plan: c/w apixaban DVT px n/a on DOAC Dispo: home after at least 2 midnights stay Home Medications Scheduled Apixaban (Eliquis) 5 Mg Tablet, 5 MG PO BID Atenolol (Atenolol) 25 Mg Tablet, 25 MG PO QHS Cholecalciferol (Vitamin D3) (Vitamin D3) 1,000 Unit Tablet, 1,000 UNITS PO DAILY Cyanocobalamin (Vitamin B-12) (Vitamin B-12) 500 Mcg Tablet, 500 MCG PO DAILY Furosemide (Furosemide) 20 Mg Tablet, 20 MG PO DAILY Lactulose (Lactulose) 10 Gm/15 Ml Solution, 30 ML PO QID Titrate to 2-3 bowel movements dialy Magnesium Oxide (Magnesium Oxide) 400 Mg Tablet, 400 MG PO DAILY Multivitamins (Thera M Plus Tablet) 1 Each Tablet, 1 TAB PO DAILY Omeprazole (Omeprazole) 40 Mg Capsule.dr, 40 MG PO BID Rifaximin (Xifaxan) 550 Mg Tablet, 550 MG PO BID Spironolactone (Spironolactone) 50 Mg Tablet, 50 MG PO DAILY Sucralfate (Carafate) 1 Gm Tablet, 1 GM PO ACHS 4 times per day take on an empty stomach Ursodiol (Ursodiol) 500 Mg Tablet, 500 MG PO BID Vitamin E (Dl,Tocopheryl Acet) (Vitamin E) 400 Unit Capsule, 400 UNIT PO DAILY Scheduled PRN Cetirizine HCl (Cetirizine HCl) 10 Mg Tablet, 10 MG PO DAILY PRN for ALLERGIES Ondansetron (Ondansetron Odt) 4 Mg Tab.rapdis, 4 MG PO Q6H PRN for NAUSEA Oxycodone HCl (Oxycodone HCl) 5 Mg Tablet, 5 MG PO Q6HP PRN for ABDOMINAL PAIN Allergies Coded Allergies: No Known Allergies (Unverified , 12/23/19) SAUD BLANK MD November 15, 2020 23:59
[2020-11-16] MEDS ORDERED: ONDANSETRON 4MG/2ML VIAL IV PRN ×2 (00:10→00:50)
[2020-11-16] MEDS ORDERED: fentaNYL 100 MCG/2 ML INJECTION (J3010) IV PRN (00:10)
[2020-11-16] MEDS ORDERED: URSO1TAB8 PO (00:28)
[2020-11-16] MEDS: NS 1,000 ML IV SCH ×3 (01:05→20:56)
[2020-11-16 01:17] LABS: LDH LACTATE DEHYDROGENASE 292 U/L (87-241)
[2020-11-16] MEDS: LACTULOSE 20 GM/30 ML SYRUP UD PO SCH ×5 (01:36→20:19)
[2020-11-16] MEDS: SUCRALFATE 1 GM TAB PO SCH ×5 (01:36→20:17)
[2020-11-16 01:41] VITALS: BP 112/62
[2020-11-16] MEDS: atenoloL 25 MG TAB PO SCH ×2 (01:59→20:16)
[2020-11-16] MEDS: rifAXIMin 550 MG TAB (XIFAXAN) PO SCH ×3 (01:59→20:17)
[2020-11-16] MEDS: APIXABAN 5 MG TAB (ELIQUIS) PO SCH ×3 (01:59→20:16)
[2020-11-16] MEDS: ursodioL 300 MG CAP PO SCH ×3 (03:06→20:17)
[2020-11-16] MEDS: KETOROLAC 30 MG/ML 1ML VIAL IV PRN ×2 (04:05→10:59)
--- NOTE | 2020-11-16 05:36 | ECGEPIP ---
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
[2020-11-16 06:00] VITALS: BP_SYST 92; BP_SYST 93; BP_DIAS 42; BP_DIAS 44
[2020-11-16 06:18] LABS: HEMATOCRIT 32.3 % (42.0-52.0); HEMOGLOBIN 10.7 g/dl (13.5-17.5); MEAN CORPUSCULAR HEMOGLOBIN 31.5 pg (27.0-33.0); MEAN CORPUSCULAR HGB CONC 33.1 g/dl (32.0-36.5); WHITE BLOOD COUNT 4.7 10^3/uL (4.0-10.0)
[2020-11-16 06:21] LABS: PLATELET COUNT, AUTOMATED 67 10^3/uL (150-450)
[2020-11-16 06:30] LABS: INR 2.04; PROTHROMBIN TIME 23.5 SECONDS (12.5-14.3)
[2020-11-16 06:43] LABS: ALBUMIN 2.1 GM/DL (3.2-5.2); ALT/SGPT 16 U/L (12-78); BILIRUBIN,TOTAL 1.9 MG/DL (0.2-1.0); BLOOD UREA NITROGEN 13 MG/DL (7-18); CALCIUM LEVEL 7.6 MG/DL (8.5-10.1); CARBON DIOXIDE LEVEL 25 MEQ/L (21-32); CHLORIDE LEVEL 112 MEQ/L (98-107); CREATININE FOR GFR 0.62 MG/DL (0.70-1.30); GLOMERULAR FILTRATION RATE > 60.0 (>56); GLUCOSE, FASTING 86 MG/DL (70-100); POTASSIUM SERUM 4.3 MEQ/L (3.5-5.1); SODIUM LEVEL 142 MEQ/L (136-145); TOTAL PROTEIN 4.7 GM/DL (6.4-8.2)
[2020-11-16] MEDS: MORPHINE 2 MG/ML 1ML VIAL (J2270) IV PRN ×4 (07:56→21:51)
[2020-11-16] MEDS: CYANOCOBALAMIN 500 MCG TAB PO SCH (08:51)
[2020-11-16] MEDS: MULTIVITAMINS/MINERALS THERAP 1 TAB PO SCH (08:51)
[2020-11-16] MEDS: VITAMIN E 400 INTERNATIONAL UNITS CAP PO SCH (08:51)
[2020-11-16] MEDS: FUROSEMIDE 20 MG TAB PO SCH (08:51)
[2020-11-16] MEDS: MAGNESIUM OXIDE 400MG TAB (MAG-OX) PO SCH (08:52)
[2020-11-16] MEDS: SPIRONOLACTONE 50 MG TAB PO SCH (08:52)
[2020-11-16] MEDS ORDERED: ENOXAPARIN 40MG/0.4ML SYRINGE (J1650 PER 10MG) SC SCH (09:00)
[2020-11-16 14:00] VITALS: BP 99/54
--- NOTE | 2020-11-16 14:22 | IPNPDOC ---
Text Note Date of Service The patient was seen on 11/16/20. NOTE SUBJECTIVE: Patient was seen and examined this morning at bedside. Continues to have some epigastric pain. No current nausea. He has been sipping on some water and tolerating this without vomiting. OBJECTIVE: Vital Signs: see below GENERAL: Alert, comfortable, in no acute distress HEENT: Normocephalic, atraumatic, moist mucous membranes NECK: Supple, trachea midline, no lymphadenopathy CARDIOVASCULAR: Regular rate and rhythm, normal S1 and S2. No murmurs, rubs, or gallops RESPIRATORY: Clear to auscultation bilaterally with equal air entry bilaterally. No wheezing, rhonchi, or rales. ABDOMEN: Tender over the epigastric area extending to the LUQ and RUQ. Soft, nondistended, bowel sounds present. EXTREMITIES: Trace edema. Pulses 2+/4 in bilateral upper and lower extremities NEUROLOGIC: Alert and oriented x3 to person, place and time. No focal deficits appreciated PSYCHIATRIC: Mood and affect appropriate ASSESSMENT/PLAN: 60 year old male with PMHx of BASS related cirrhosis s/p TIPS (2019) complicated by ascites, bicytopenia, splenomegaly and episodes of hepatic encephalopathy, recurrent pancreatitis, PE, & hx of pleural effusion requiring thoracentesis, who initially presented with epigastric abdominal pain found to have elevated lipase and peripancreatic edema on CT scan suggestive of acute pancreatitis # Acute pancreatitis possibly 2/2 gallbladder etiology - clinically improving, tolerating clear liquids. will continue to advance as tolerated. - continue on IV fluids at lower rate today give his history of cirrhosis, we do not want to fluid overload him - hx gallstones and gallbladder sludge which is the most likely etiology but he is not a good surgical candidate for cholecystectomy given his cirrhosis - continue home ursodiol # Liver 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, compensated, s/p TIPs, with history of hepatic encephalopathy, esophageal varicies, ascities, splenomegaly, and bicytopenia - MELD score 17 today - Child-Marin Score = 10 points = Class C, not a good candidate for elective procedures such as cholecystectomy - continue home rifaximin, atenolol, vitamin e, lactulose, lasix, spironolactone # Hx of PE - continue home Eliquis # Bicytopenia - likely 2/2 cirrhosis with splenomegaly - trend CBC daily DVT prophylaxis: on full anticoagulation with eliquis Disposition: pending clinical improvement and tolerance of oral diet VS,Fishbone, I+O VS, Fishbone, I+O Laboratory Tests 11/15/20 21:21 11/16/20 05:49 Vital Signs Date Time Temp Pulse Resp B/P (MAP) Pulse Ox O2 Delivery O2 Flow Rate FiO2 11/16/20 08:06 16 11/16/20 06:00 92/44 (60) 11/16/20 06:00 98.7 53 98 Room Air I&O- Last 24 Hours up to 6 AM 11/16/20 06:00 Intake Total 60 ml Output Total 300 ml Balance -240 ml GME ATTESTATION GME ATTESTATION My faculty preceptor for this patient encounter was physically present during the encounter and was fully available. All aspects of the patient interview, examination, medical decision making process, and medical care plan development were reviewed and approved by the faculty preceptor. The faculty preceptor is aware and concurs with the plan as stated in the body of this note and will attest to such by his/her cosignature. ATTENDING NOTE I, Oliver Elizalde MD, have independently examined this patient and performed my own physical exam, as well as reviewed the documentation and edited where necessary. I have discussed in detail with the resident / student the findings and plan of treatment as documented by the resident / student and edited their note. I agree with their findings and treatment plan and have edited their documentation. VINCENT TORRES D.O. November 16, 2020 14:22 OLIVER ELIZALDE MD November 17, 2020 14:43
[2020-11-16 20:16] VITALS: BP 99/54
[2020-11-16 22:00] VITALS: BP 99/54
[2020-11-17 06:00] VITALS: BP 106/58
[2020-11-17 06:04] LABS: HEMATOCRIT 30.1 % (42.0-52.0); HEMOGLOBIN 10.1 g/dl (13.5-17.5); MEAN CORPUSCULAR HEMOGLOBIN 31.8 pg (27.0-33.0); MEAN CORPUSCULAR HGB CONC 33.6 g/dl (32.0-36.5); MEAN CORPUSCULAR VOLUME 94.7 fl (80.0-96.0); RED BLOOD COUNT 3.18 10^6/uL (4.30-6.10); WHITE BLOOD COUNT 3.2 10^3/uL (4.0-10.0)
[2020-11-17 06:08] LABS: PLATELET COUNT, AUTOMATED 60 10^3/uL (150-450)
[2020-11-17 06:30] LABS: ALBUMIN 1.9 GM/DL (3.2-5.2); ALT/SGPT 13 U/L (12-78); BILIRUBIN,TOTAL 1.8 MG/DL (0.2-1.0); BLOOD UREA NITROGEN 14 MG/DL (7-18); CALCIUM LEVEL 7.7 MG/DL (8.5-10.1); CARBON DIOXIDE LEVEL 23 MEQ/L (21-32); CHLORIDE LEVEL 111 MEQ/L (98-107); CREATININE FOR GFR 0.35 MG/DL (0.70-1.30); GLOMERULAR FILTRATION RATE > 60.0 (>56); GLUCOSE, FASTING 75 MG/DL (70-100); LIPASE 1682 U/L (73-393); POTASSIUM SERUM 3.9 MEQ/L (3.5-5.1); SODIUM LEVEL 140 MEQ/L (136-145); TOTAL PROTEIN 4.7 GM/DL (6.4-8.2)
[2020-11-17] MEDS: ursodioL 300 MG CAP PO SCH (07:47)
[2020-11-17] MEDS: MORPHINE 2 MG/ML 1ML VIAL (J2270) IV PRN (07:47)
[2020-11-17] MEDS: MULTIVITAMINS/MINERALS THERAP 1 TAB PO SCH (07:47)
[2020-11-17] MEDS: SUCRALFATE 1 GM TAB PO SCH ×2 (07:48→11:20)
[2020-11-17] MEDS: FUROSEMIDE 20 MG TAB PO SCH (07:48)
[2020-11-17] MEDS: SPIRONOLACTONE 50 MG TAB PO SCH (07:48)
[2020-11-17] MEDS: rifAXIMin 550 MG TAB (XIFAXAN) PO SCH (07:48)
[2020-11-17] MEDS: MAGNESIUM OXIDE 400MG TAB (MAG-OX) PO SCH (07:48)
[2020-11-17] MEDS: CYANOCOBALAMIN 500 MCG TAB PO SCH (07:48)
[2020-11-17] MEDS: APIXABAN 5 MG TAB (ELIQUIS) PO SCH (07:48)
[2020-11-17] MEDS: VITAMIN E 400 INTERNATIONAL UNITS CAP PO SCH (07:48)
[2020-11-17] MEDS: NS 1,000 ML IV SCH (07:49)
[2020-11-17] MEDS: LACTULOSE 20 GM/30 ML SYRUP UD PO SCH ×2 (07:53→12:59)
[2020-11-17] MEDS ORDERED: oxyCODONE 5MG TAB PO PRN (08:20)
[2020-11-17] MEDS ORDERED: OMEPRAZOLE 20 MG CAP PO SCH (09:00)
[2020-11-17 14:00] VITALS: BP 106/57
--- NOTE | 2020-11-17 17:05 | DS.PDOC ---
Discharge Summary General Date of Admission November 16, 2020 at 00:07 Date of Discharge November 17, 2020 Attending Physician: JORGE SCHMITZ MD Discharge Summary PROCEDURES PERFORMED DURING STAY: None. ADMITTING DIAGNOSES: 1. Acute pancreatitis possibly 2/2 gallbladder etiology 2. Liver Cirrhosis 2/2 SWIFT, compensated, s/p TIPs, with history of hepatic encephalopathy, esophageal varicies, ascities, splenomegaly, and bicytopenia 3. Hx of PE DISCHARGE DIAGNOSES: 1. Acute pancreatitis possibly 2/2 gallbladder etiology 2. Liver Cirrhosis 2/2 SWIFT, compensated, s/p TIPs, with history of hepatic encephalopathy, esophageal varicies, ascities, splenomegaly, and bicytopenia 3. Hx of PE COMPLICATIONS/CHIEF COMPLAINT: Recurrent Acute Pancreatitis. HISTORY OF PRESENT ILLNESS: A 60-year-old male who presented to [facility] emergency room due to 8 out of 10 epigastric abdominal pain made worse by eating. The patient has a history of recurrent pancreatitis and states his symptoms are similar to his prior episodes. He notes that on prior workups. He has been told that his gallbladder is the cause of his recurrent pancreatitis. However, he is not a good surgical candidate for elective cholecystectomy at this time. He has been taking her ursodiol in an effort to prevent these episodes. The patient has a history of Swift cirrhosis, but is not currently on the transplant list as his meld score is not yet above 20. He is a child Marin class C, which classifies him as a poor surgical candidate for elective procedures. He is hoping to have cholecystectomy when he is able to have a liver transplant. In the emergency department, workup revealed elevated lipase with CT findings consistent with acute pancreatitis. The patient was admitted for further management and given bolus IV fluids. HOSPITAL COURSE: Patient was admitted to the hospital for management of acute pancreatitis. He was continued on IV fluids and kept nothing by mouth overnight. The following morning he had improvement of his pain and was tolerating clear liquids. On the second day of admission, the patient was started on full liquid diet and tolerated this well. He was progressed to a soft diet. His pain had improved and he was tolerating oral intake. He was discharged home with instructions to follow up with his outpatient provider. The patient was initially given IV Toradol for pain control , IV admitting provider. However, considering the patient's history of esophageal varices, I would advise against using NSAIDs for pain control in the future. When he was tolerating oral medications, the patient was restarted on his home oxycodone for pain. DISCHARGE MEDICATIONS: Please see below. ALLERGIES: Please see below. PHYSICAL EXAMINATION ON DISCHARGE: VITAL SIGNS: Please see below. GENERAL: Alert, comfortable, in no acute distress HEENT: Normocephalic, atraumatic, moist mucous membranes NECK: Supple, trachea midline, no lymphadenopathy CARDIOVASCULAR: Regular rate and rhythm, normal S1 and S2. No murmurs, rubs, or gallops RESPIRATORY: Clear to auscultation bilaterally with equal air entry bilaterally. No wheezing, rhonchi, or rales. ABDOMEN: Tender over the epigastric area extending to the LUQ and RUQ. Soft, nondistended, bowel sounds present. EXTREMITIES: Trace edema. Pulses 2+/4 in bilateral upper and lower extremities NEUROLOGIC: Alert and oriented x3 to person, place and time. No focal deficits appreciated PSYCHIATRIC: Mood and affect appropriate LABORATORY DATA: Please see below. IMAGING: - CT abdomen/pelvis 1. Mild peritoneal ascites, increased since 01/20/2020. 2. Hepatic cirrhosis with portal venous collateralization and TIPS shunt in position. There is also borderline splenomegaly. 3. Status post gastric bypass. 4. Distended gallbladder with faint stones or sludge layering posteriorly. 5. Minimal right pleural effusion and trace left pleural effusion which are new or increased since the prior study. 6. Mural lipoma of the distal ileum which is similar to the prior study. 7. Peripancreatic edema which is locally greater than elsewhere suggesting mild acute pancreatitis. 8. Small right inguinal hernia. PROGNOSIS: Poor ACTIVITY: As tolerated. DIET: As tolerated DISCHARGE PLAN/DISPOSITION: Home DISCHARGE INSTRUCTIONS: Follow-up with PCP in 7-10 days Continue medications as previously prescribed ITEMS TO FOLLOWUP ON ON OUTPATIENT: None DISCHARGE CONDITION: Stable. TIME SPENT ON DISCHARGE: Greater than 35 minutes. Vital Signs/I&Os Vital Signs Date Time Temp Pulse Resp B/P (MAP) Pulse Ox O2 Delivery O2 Flow Rate FiO2 11/17/20 14:00 98.3 57 16 106/57 (73) 98 Room Air I&O- Last 24 Hours up to 6 AM 11/17/20 06:00 Intake Total 1350 ml Output Total 775 ml Balance 575 ml Laboratory Data Labs 24H Laboratory Tests 2 11/17/20 05:41: Nucleated Red Blood Cells % (auto) 0.0, Immature Platelet Fraction 3.0, Anion Gap 6L, Glomerular Filtration Rate > 60.0, Calcium Level 7.7L, Total Bilirubin 1.8H, Aspartate Amino Transf (AST/SGOT) 32, Alanine Aminotransferase (ALT/SGPT) 13, Alkaline Phosphatase 87, Total Protein 4.7L, Albumin 1.9L, Albumin/Globulin Ratio 0.7, Lipase 1682H CBC/BMP Laboratory Tests 11/17/20 05:41 Microbiology Microbiology 11/16/20 Blood Culture - Preliminary, Resulted No growth after 24 hours . All specim... Discharge Medications Scheduled Apixaban (Eliquis) 5 Mg Tablet, 5 MG PO BID, (Reported) Atenolol (Atenolol) 25 Mg Tablet, 25 MG PO QHS, (Reported) Cholecalciferol (Vitamin D3) (Vitamin D3) 1,000 Unit Tablet, 1,000 UNITS PO DAILY, (Reported) Cyanocobalamin (Vitamin B-12) (Vitamin B-12) 500 Mcg Tablet, 500 MCG PO DAILY, (Reported) Furosemide (Furosemide) 20 Mg Tablet, 20 MG PO DAILY, (Reported) Lactulose (Lactulose) 10 Gm/15 Ml Solution, 30 ML PO QID Titrate to 2-3 bowel movements dialy Magnesium Oxide (Magnesium Oxide) 400 Mg Tablet, 400 MG PO DAILY, (Reported) Multivitamins (Thera M Plus Tablet) 1 Each Tablet, 1 TAB PO DAILY, (Reported) Omeprazole (Omeprazole) 40 Mg Capsule.dr, 40 MG PO BID, (Reported) Rifaximin (Xifaxan) 550 Mg Tablet, 550 MG PO BID, (Reported) Spironolactone (Spironolactone) 50 Mg Tablet, 50 MG PO DAILY, (Reported) Sucralfate (Carafate) 1 Gm Tablet, 1 GM PO ACHS, (Reported) 4 times per day take on an empty stomach Ursodiol (Ursodiol) 500 Mg Tablet, 500 MG PO BID, (Reported) Vitamin E (Dl,Tocopheryl Acet) (Vitamin E) 400 Unit Capsule, 400 UNIT PO DAILY, (Reported) Scheduled PRN Cetirizine HCl (Cetirizine HCl) 10 Mg Tablet, 10 MG PO DAILY PRN for ALLERGIES, (Reported) Ondansetron (Ondansetron Odt) 4 Mg Tab.elizabeth 4 MG PO Q6H PRN for NAUSEA, (Reported) Oxycodone HCl (Oxycodone HCl) 5 Mg Tablet, 5 MG PO Q6HP PRN for ABDOMINAL PAIN, (Reported) Allergies Coded Allergies: No Known Allergies (Unverified , 12/23/19) VINCENT TORRES D.O. November 17, 2020 17:04
== END 2020-11-17 16:40 | disposition home or self-care (01) | DRG 439 ==
LOC: M ED 20:41 → M ED INP 11-16 00:07 → ENRESERV 11-16 00:46 → M MSPAV 11-16 01:44
PROVIDERS: ADMIT Internal Medicine; ATTEND Internal Medicine
DX: K85.90 Acute pancreatitis without necrosis or infection, unspecified (principal); R18.8 Other ascites; K74.60 Unspecified cirrhosis of liver; R16.1 Splenomegaly, not elsewhere classified; K75.81 Nonalcoholic steatohepatitis (NASH); R26.81 Unsteadiness on feet; D75.89 Other specified diseases of blood and blood-forming organs; Z98.84 Bariatric surgery status; Z20.822 Contact with and (suspected) exposure to COVID-19; Z79.01 Long term (current) use of anticoagulants; Z79.899 Other long term (current) drug therapy; Z88.5 Allergy status to narcotic agent; Z88.8 Allergy status to other drugs, medicaments and biological substances

== ENCOUNTER → 2021-01-04 | Outpatient (CLI) | payer OTHER ==
[~2021-01-04] MED LIST changes: +OXYC-517 PO; +URSO1TAB8 PO
[2021-01-04 12:31] LABS: INR 1.73; PROTHROMBIN TIME 20.6 SECONDS (12.5-14.3)
[2021-01-04 12:56] LABS: ALBUMIN 2.3 GM/DL (3.2-5.2); ALT/SGPT 18 U/L (12-78); BILIRUBIN,DIRECT 0.6 MG/DL (0.0-0.2); BILIRUBIN,TOTAL 1.2 MG/DL (0.2-1.0); BLOOD UREA NITROGEN 7 MG/DL (7-18); CARBON DIOXIDE LEVEL 26 MEQ/L (21-32); CHLORIDE LEVEL 111 MEQ/L (98-107); CREATININE FOR GFR 0.63 MG/DL (0.70-1.30); GLOMERULAR FILTRATION RATE > 60.0 (>56); GLUCOSE, FASTING 92 MG/DL (70-100); POTASSIUM SERUM 4.2 MEQ/L (3.5-5.1); SODIUM LEVEL 142 MEQ/L (136-145); TOTAL PROTEIN 5.1 GM/DL (6.4-8.2)
== END ==
LOC: M WUC 09:54
DX: K74.60 Unspecified cirrhosis of liver (principal)

== ENCOUNTER → 2021-02-05 | Outpatient (REF) | payer OTHER | LOC: M WUC 15:32 | PROVIDERS: ATTEND Nurse Practitioner Family | DX: K74.60 Unspecified cirrhosis of liver (principal) ==

== ENCOUNTER → 2021-02-17 | Outpatient (CLI) | payer OTHER ==
[2021-02-17 16:34] LABS: INR 1.62; PROTHROMBIN TIME 19.7 SECONDS (12.7-14.5)
[2021-02-17 16:41] LABS: ALBUMIN 2.1 GM/DL (3.2-5.2); ALT/SGPT 19 U/L (12-78); BILIRUBIN,DIRECT 0.6 MG/DL (0.0-0.2); BILIRUBIN,TOTAL 1.1 MG/DL (0.2-1.0); BLOOD UREA NITROGEN 12 MG/DL (7-18); CALCIUM LEVEL 7.7 MG/DL (8.5-10.1); CARBON DIOXIDE LEVEL 28 MEQ/L (21-32); CHLORIDE LEVEL 111 MEQ/L (98-107); CREATININE FOR GFR 0.71 MG/DL (0.70-1.30); GLOMERULAR FILTRATION RATE > 60.0 (>56); GLUCOSE, FASTING 67 MG/DL (70-100); POTASSIUM SERUM 4.6 MEQ/L (3.5-5.1); SODIUM LEVEL 141 MEQ/L (136-145); TOTAL PROTEIN 5.1 GM/DL (6.4-8.2)
== END ==
LOC: M WUC 11:11
PROVIDERS: ATTEND Nurse Practitioner Family
DX: K74.60 Unspecified cirrhosis of liver (principal)

== ENCOUNTER → 2021-03-10 | Outpatient (CLI) | payer OTHER ==
[2021-03-10 11:14] LABS: INR 1.43; PROTHROMBIN TIME 17.8 SECONDS (12.7-14.5)
[2021-03-10 11:18] LABS: ALBUMIN 2.2 GM/DL (3.2-5.2); ALT/SGPT 19 U/L (12-78); BILIRUBIN,DIRECT 0.6 MG/DL (0.0-0.2); BILIRUBIN,TOTAL 1.3 MG/DL (0.2-1.0); BLOOD UREA NITROGEN 9 MG/DL (7-18); CALCIUM LEVEL 7.9 MG/DL (8.5-10.1); CARBON DIOXIDE LEVEL 27 MEQ/L (21-32); CHLORIDE LEVEL 110 MEQ/L (98-107); CREATININE FOR GFR 0.52 MG/DL (0.70-1.30); GLOMERULAR FILTRATION RATE > 60.0 (>56); GLUCOSE, FASTING 76 MG/DL (70-100); POTASSIUM SERUM 4.4 MEQ/L (3.5-5.1); SODIUM LEVEL 143 MEQ/L (136-145); TOTAL PROTEIN 5.3 GM/DL (6.4-8.2)
== END ==
LOC: M WUC 08:28
PROVIDERS: ATTEND Nurse Practitioner Family
DX: K74.60 Unspecified cirrhosis of liver (principal)

== ENCOUNTER → 2021-04-05 | Outpatient (CLI) | payer OTHER ==
[2021-04-05 13:12] LABS: INR 1.72; PROTHROMBIN TIME 20.6 SECONDS (12.7-14.5)
[2021-04-05 13:35] LABS: ALT/SGPT 18 U/L (12-78); BILIRUBIN,DIRECT 0.7 MG/DL (0.0-0.2); BILIRUBIN,TOTAL 1.3 MG/DL (0.2-1.0); BLOOD UREA NITROGEN 9 MG/DL (7-18); CALCIUM LEVEL 7.8 MG/DL (8.5-10.1); CARBON DIOXIDE LEVEL 28 MEQ/L (21-32); CHLORIDE LEVEL 110 MEQ/L (98-107); GLOMERULAR FILTRATION RATE > 60.0 (>56); GLUCOSE, FASTING 49 MG/DL (70-100); SODIUM LEVEL 142 MEQ/L (136-145); TOTAL PROTEIN 5.3 GM/DL (6.4-8.2)
== END ==
LOC: M WUC 08:54
PROVIDERS: ATTEND Nurse Practitioner Family
DX: K74.60 Unspecified cirrhosis of liver (principal)

== ENCOUNTER → 2021-04-26 | Outpatient (CLI) | payer OTHER ==
[2021-04-26 18:38] LABS: INR 1.65
[2021-04-26 18:45] LABS: ALBUMIN 2.2 GM/DL (3.2-5.2); ALT/SGPT 21 U/L (12-78); BILIRUBIN,DIRECT 0.6 MG/DL (0.0-0.2); BILIRUBIN,TOTAL 1.3 MG/DL (0.2-1.0); BLOOD UREA NITROGEN 9 MG/DL (7-18); CALCIUM LEVEL 8.5 MG/DL (8.5-10.1); CARBON DIOXIDE LEVEL 27 MEQ/L (21-32); CHLORIDE LEVEL 112 MEQ/L (98-107); CREATININE FOR GFR 0.74 MG/DL (0.70-1.30); GLOMERULAR FILTRATION RATE > 60.0 (>56); GLUCOSE, FASTING 88 MG/DL (70-100); SODIUM LEVEL 143 MEQ/L (136-145); TOTAL PROTEIN 5.5 GM/DL (6.4-8.2)
== END ==
LOC: M WUC 10:22
PROVIDERS: ATTEND Nurse Practitioner Family
DX: K74.60 Unspecified cirrhosis of liver (principal)

== ENCOUNTER → 2021-05-11 | Outpatient (CLI) | payer OTHER ==
[2021-05-11 13:17] LABS: BASO # 0.1 10^3/uL (0.0-0.2); BASO % 1.9 % (0.0-1.0); EOS # 0.3 10^3/uL (0.0-0.5); HEMATOCRIT 37.1 % (42.0-52.0); HEMOGLOBIN 12.4 g/dl (13.5-17.5); LYMPH # 1.5 10^3/uL (1.5-5.0); MEAN CORPUSCULAR HEMOGLOBIN 31.1 pg (27.0-33.0); MEAN CORPUSCULAR HGB CONC 33.4 g/dl (32.0-36.5); MONO # 0.6 10^3/uL (0.0-0.8); MONO % 14.1 % (2.0-8.0); NEUTROPHILS # 1.6 10^3/uL (1.5-8.5); NEUTROPHILS % 38.5 % (36.0-66.0); PLATELET COUNT, AUTOMATED 114 10^3/uL (150-450); RED BLOOD COUNT 3.99 10^6/uL (4.30-6.10); WHITE BLOOD COUNT 4.1 10^3/uL (4.0-10.0)
[2021-05-11 13:32] LABS: HEMOGLOBIN A1c 4.3 %
[2021-05-11 14:00] LABS: ALBUMIN 2.2 GM/DL (3.2-5.2); ALT/SGPT 17 U/L (12-78); BILIRUBIN,TOTAL 1.3 MG/DL (0.2-1.0); BLOOD UREA NITROGEN 10 MG/DL (7-18); CALCIUM LEVEL 8.9 MG/DL (8.5-10.1); CARBON DIOXIDE LEVEL 25 MEQ/L (21-32); CHLORIDE LEVEL 113 MEQ/L (98-107); CHOLESTEROL LEVEL 121 MG/DL (<200); CHOLESTEROL RISK RATIO 2.016 (<5); FERRITIN 332 NG/ML (26-388); GLOMERULAR FILTRATION RATE > 60.0 (>56); GLUCOSE, FASTING 72 MG/DL (70-100); HDL CHOLESTEROL 60 MG/DL (>40); IRON (FE) 111 UG/DL (65-175); LDL CHOLESTEROL 50 MG/DL (<100); MAGNESIUM LEVEL 1.8 MG/DL (1.8-2.4); NON-HDL-C 61 MG/DL; PERCENT SATURATION 70.3 % (19.7-50.0); POTASSIUM SERUM 4.5 MEQ/L (3.5-5.1); PROSTATIC SPECIFIC AG MONITOR 0.47 NG/ML (< 4.00); SODIUM LEVEL 142 MEQ/L (136-145); TOTAL IRON BINDING CAPACITY 158 UG/DL (250-450); TOTAL PROTEIN 5.5 GM/DL (6.4-8.2); TRIGLYCERIDES LEVEL 55 MG/DL (<150); VITAMIN B12 LEVEL 1862 PG/ML (247-911)
== END ==
LOC: M WUC 08:45
PROVIDERS: ATTEND Family Medicine
DX: K81.1 Chronic cholecystitis (principal); K74.60 Unspecified cirrhosis of liver; K21.9 Gastro-esophageal reflux disease without esophagitis; K72.90 Hepatic failure, unspecified without coma; I10 Essential (primary) hypertension; E88.09 Other disorders of plasma-protein metabolism, not elsewhere classified; G47.30 Sleep apnea, unspecified; I47.1 Supraventricular tachycardia; D69.6 Thrombocytopenia, unspecified; Z12.5 Encounter for screening for malignant neoplasm of prostate

== ENCOUNTER → 2021-05-11 | Outpatient (CLI) | payer OTHER ==
[2021-05-11 13:34] LABS: INR 1.88; PROTHROMBIN TIME 22.1 SECONDS (12.7-14.5)
[2021-05-11 13:54] LABS: ALBUMIN 2.2 GM/DL (3.2-5.2); ALT/SGPT 17 U/L (12-78); BILIRUBIN,DIRECT 0.7 MG/DL (0.0-0.2); BILIRUBIN,TOTAL 1.6 MG/DL (0.2-1.0); BLOOD UREA NITROGEN 10 MG/DL (7-18); CALCIUM LEVEL 8.7 MG/DL (8.5-10.1); CARBON DIOXIDE LEVEL 27 MEQ/L (21-32); CHLORIDE LEVEL 112 MEQ/L (98-107); CREATININE FOR GFR 0.67 MG/DL (0.70-1.30); GLOMERULAR FILTRATION RATE > 60.0 (>56); GLUCOSE, FASTING 73 MG/DL (70-100); POTASSIUM SERUM 4.4 MEQ/L (3.5-5.1); SODIUM LEVEL 142 MEQ/L (136-145); TOTAL PROTEIN 5.5 GM/DL (6.4-8.2)
== END ==
LOC: M WUC 08:49
PROVIDERS: ATTEND Nurse Practitioner Family
DX: K74.60 Unspecified cirrhosis of liver (principal)

== ENCOUNTER → 2021-05-11 | Outpatient (CLI) | payer OTHER ==
[2021-05-11 13:49] LABS: AMYLASE 33 U/L (25-115); LIPASE 142 U/L (73-393)
== END ==
LOC: M WUC 08:43
DX: K85.90 Acute pancreatitis without necrosis or infection, unspecified (principal)

== ENCOUNTER → 2021-06-11 | Outpatient (CLI) | payer OTHER ==
[~2021-06-11] MED LIST changes: +LACT20EL PO; -OMEP-221 PO; +OMEP40CA5 PO; +ROSU5TAB5 PO
[2021-06-11 14:17] LABS: INR 1.78; PROTHROMBIN TIME 21.1 SECONDS (12.7-14.5)
[2021-06-11 14:26] LABS: BLOOD UREA NITROGEN 13 MG/DL (7-18); CALCIUM LEVEL 8.3 MG/DL (8.5-10.1); CARBON DIOXIDE LEVEL 27 MEQ/L (21-32); CHLORIDE LEVEL 110 MEQ/L (98-107); CREATININE FOR GFR 0.71 MG/DL (0.70-1.30); GLOMERULAR FILTRATION RATE > 60.0 (>56); GLUCOSE, FASTING 88 MG/DL (70-100); POTASSIUM SERUM 3.8 MEQ/L (3.5-5.1); SODIUM LEVEL 142 MEQ/L (136-145)
[2021-06-11 14:27] LABS: ALBUMIN 2.1 GM/DL (3.2-5.2); ALT/SGPT 18 U/L (12-78); BILIRUBIN,DIRECT 0.6 MG/DL (0.0-0.2); BILIRUBIN,TOTAL 1.1 MG/DL (0.2-1.0); TOTAL PROTEIN 5.1 GM/DL (6.4-8.2)
== END ==
LOC: M WUC 09:52
PROVIDERS: ATTEND Nurse Practitioner Family
DX: K74.60 Unspecified cirrhosis of liver (principal)

== ENCOUNTER → 2021-06-11 | Outpatient (CLI) | payer OTHER | LOC: M WUC 09:55 | PROVIDERS: ATTEND Nurse Practitioner Acute Care | DX: K75.81 Nonalcoholic steatohepatitis (NASH) (principal); K74.60 Unspecified cirrhosis of liver ==

== ENCOUNTER → 2021-06-17 | Outpatient (CLI) | payer OTHER ==
[~2021-06-17] MED LIST changes: +GASTROGRAFIN SOLUTION 30ML (Q9963) As Ordered ONE; +ISOVUE-370 76% 100ML VIAL As Ordered ONE
== END ==
LOC: M RAD 11:01
PROVIDERS: ATTEND Nurse Practitioner Acute Care
DX: K74.60 Unspecified cirrhosis of liver (principal); K75.81 Nonalcoholic steatohepatitis (NASH); R91.1 Solitary pulmonary nodule; J90 Pleural effusion, not elsewhere classified
CPT/HCPCS: 71250; 74170; Q9963; Q9967

== ENCOUNTER → 2021-07-14 | Outpatient (CLI) | payer OTHER ==
[~2021-07-14] MED LIST changes: -GASTROGRAFIN SOLUTION 30ML (Q9963) As Ordered ONE; -ISOVUE-370 76% 100ML VIAL As Ordered ONE; -LACT20EL PO; -ROSU5TAB5 PO
[2021-07-14 16:31] LABS: INR 2.01; PROTHROMBIN TIME 23.2 SECONDS (12.7-14.5)
[2021-07-14 16:43] LABS: ALBUMIN 2.4 GM/DL (3.2-5.2); ALT/SGPT 18 U/L (12-78); BILIRUBIN,DIRECT 0.8 MG/DL (0.0-0.2); BILIRUBIN,TOTAL 1.6 MG/DL (0.2-1.0); BLOOD UREA NITROGEN 9 MG/DL (7-18); CALCIUM LEVEL 8.2 MG/DL (8.5-10.1); CARBON DIOXIDE LEVEL 28 MEQ/L (21-32); CHLORIDE LEVEL 113 MEQ/L (98-107); CREATININE FOR GFR 0.59 MG/DL (0.70-1.30); GLOMERULAR FILTRATION RATE > 60.0 (>56); GLUCOSE, FASTING 113 MG/DL (70-100); POTASSIUM SERUM 4.3 MEQ/L (3.5-5.1); SODIUM LEVEL 145 MEQ/L (136-145); TOTAL PROTEIN 5.4 GM/DL (6.4-8.2)
== END ==
LOC: M WUC 12:13
PROVIDERS: ATTEND Nurse Practitioner Family
DX: K74.60 Unspecified cirrhosis of liver (principal)

== ENCOUNTER 2021-08-06 09:47 | Inpatient (IN) | payer OTHER, MEDICARE ==
[~2021-08-06] VITALS: Ht 175.3 cm; Wt 95.0 kg
[2021-08-06] MEDS: SPIRONOLACTONE 50 MG TAB PO SCH (09:00)
[2021-08-06] MEDS: MAGNESIUM OXIDE 400MG TAB (MAG-OX) PO SCH (09:00)
[2021-08-06] MEDS: FUROSEMIDE 20 MG TAB PO SCH (09:00)
[2021-08-06 10:57] LABS: BASO # 0.1 10^3/uL (0.0-0.2); BASO % 1.5 % (0.0-1.0); EOS # 0.2 10^3/uL (0.0-0.5); EOS % 4.1 % (0.0-3.0); HEMATOCRIT 34.3 % (42.0-52.0); HEMOGLOBIN 11.5 g/dl (13.5-17.5); LYMPH # 0.9 10^3/uL (1.5-5.0); LYMPH % 21.7 % (24.0-44.0); MEAN CORPUSCULAR HEMOGLOBIN 31.3 pg (27.0-33.0); MEAN CORPUSCULAR HGB CONC 33.5 g/dl (32.0-36.5); MEAN CORPUSCULAR VOLUME 93.2 fl (80.0-96.0); MONO # 0.5 10^3/uL (0.0-0.8); MONO % 12.2 % (2.0-8.0); NEUTROPHILS # 2.5 10^3/uL (1.5-8.5); NEUTROPHILS % 60.3 % (36.0-66.0); RED BLOOD COUNT 3.68 10^6/uL (4.30-6.10); WHITE BLOOD COUNT 4.1 10^3/uL (4.0-10.0)
[2021-08-06 11:24] LABS: PLATELET COUNT, AUTOMATED 90 10^3/uL (150-450)
[2021-08-06 11:26] LABS: ALBUMIN 2.6 GM/DL (3.2-5.2); ALT/SGPT 19 U/L (12-78); BILIRUBIN,DIRECT 0.9 MG/DL (0.0-0.2); BILIRUBIN,TOTAL 1.5 MG/DL (0.2-1.0); BLOOD UREA NITROGEN 23 MG/DL (7-18); CALCIUM LEVEL 8.3 MG/DL (8.8-10.2); CARBON DIOXIDE LEVEL 22 MEQ/L (21-32); CHLORIDE LEVEL 111 MEQ/L (98-107); CREATININE FOR GFR 1.23 MG/DL (0.70-1.30); GLOMERULAR FILTRATION RATE > 60.0 (>49); GLUCOSE, FASTING 85 MG/DL (70-100); LIPASE 147 U/L (73-393); POTASSIUM SERUM 4.3 MEQ/L (3.5-5.1); SALICYLATE LEVEL < 1.7 MG/DL (5.0-30.0); SODIUM LEVEL 141 MEQ/L (136-145); TOTAL PROTEIN 5.2 GM/DL (6.4-8.2)
[2021-08-06] MEDS ORDERED: oxyCODONE 5MG TAB PO ONE (11:55)
[2021-08-06] MEDS ORDERED: ROSU5TAB5 PO (12:18)
[2021-08-06] MEDS ORDERED: LACT20EL PO (12:18)
[2021-08-06] MEDS ORDERED: HOME MED LIST COMPLETE! XX SCH (12:20)
[2021-08-06 12:39] LABS: INR 1.86; PROTHROMBIN TIME 21.8 SECONDS (12.7-14.5)
[2021-08-06] MEDS ORDERED: D5W IV ONE ×2 (13:00→13:30)
[2021-08-06] MEDS ORDERED: ACETYLCYSTEINE IV ONE ×2 (13:00→13:30)
[2021-08-06] MEDS ORDERED: ONDANSETRON 4MG/2ML VIAL IV PRN (13:10)
[2021-08-06 13:11] LABS: RSV AMPLIFICATION NEGATIVE (NEGATIVE)
[2021-08-06] MEDS: LACTULOSE 20 GM/30 ML SYRUP UD PO SCH ×2 (17:00→20:09)
[2021-08-06] MEDS ORDERED: SUCRALFATE 1 GM TAB PO SCH (17:30)
[2021-08-06] MEDS: SUCRALFATE SUSP 1GM/10ML UD PO SCH ×2 (17:30→20:14)
[2021-08-06] MEDS ORDERED: D5W IV SCH (18:00)
[2021-08-06] MEDS ORDERED: ACETYLCYSTEINE IV SCH (18:00)
[2021-08-06 18:09] LABS: BASO # 0.1 10^3/uL (0.0-0.2); BASO % 1.6 % (0.0-1.0); EOS # 0.2 10^3/uL (0.0-0.5); EOS % 4.7 % (0.0-3.0); HEMATOCRIT 37.7 % (42.0-52.0); HEMOGLOBIN 12.4 g/dl (13.5-17.5); LYMPH # 1.2 10^3/uL (1.5-5.0); LYMPH % 27.9 % (24.0-44.0); MEAN CORPUSCULAR HEMOGLOBIN 31.2 pg (27.0-33.0); MEAN CORPUSCULAR HGB CONC 32.9 g/dl (32.0-36.5); MONO # 0.4 10^3/uL (0.0-0.8); MONO % 10.3 % (2.0-8.0); NEUTROPHILS # 2.4 10^3/uL (1.5-8.5); NEUTROPHILS % 55.3 % (36.0-66.0); RED BLOOD COUNT 3.97 10^6/uL (4.30-6.10); WHITE BLOOD COUNT 4.3 10^3/uL (4.0-10.0)
[2021-08-06 18:12] LABS: PLATELET COUNT, AUTOMATED 93 10^3/uL (150-450)
[2021-08-06 18:20] LABS: INR 1.89; PROTHROMBIN TIME 22.1 SECONDS (12.7-14.5)
[2021-08-06 18:21] LABS: PARTIAL THROMBOPLASTIN TIME 47.3 SECONDS (25.9-37.0)
[2021-08-06 18:33] LABS: ALBUMIN 2.5 GM/DL (3.2-5.2); ALT/SGPT 23 U/L (12-78); BILIRUBIN,TOTAL 1.7 MG/DL (0.2-1.0); BLOOD UREA NITROGEN 24 MG/DL (7-18); CALCIUM LEVEL 8.3 MG/DL (8.8-10.2); CARBON DIOXIDE LEVEL 27 MEQ/L (21-32); CHLORIDE LEVEL 107 MEQ/L (98-107); CREATININE FOR GFR 1.28 MG/DL (0.70-1.30); GLOMERULAR FILTRATION RATE > 60.0 (>49); GLUCOSE, FASTING 100 MG/DL (70-100); POTASSIUM SERUM 4.6 MEQ/L (3.5-5.1); SODIUM LEVEL 142 MEQ/L (136-145); TOTAL PROTEIN 6.2 GM/DL (6.4-8.2)
[2021-08-06 18:54] VITALS: BP 119/61
[2021-08-06] MEDS: oxyCODONE 5MG TAB PO PRN (19:56)
[2021-08-06] MEDS: cefTRIAXone SOD 1 GM in D5W MINI-BAG PLUS 50 ML IV SCH (19:56)
[2021-08-06 20:00] VITALS: BP 117/62
[2021-08-06] MEDS: atenoloL 25 MG TAB PO SCH (20:09)
[2021-08-06] MEDS: rifAXIMin 550 MG TAB (XIFAXAN) PO SCH (20:14)
[2021-08-06] MEDS: PANTOPRAZOLE 40MG VIAL (C9113 PER 1) IV SCH (20:14)
[2021-08-06] MEDS ORDERED: APIXABAN 5 MG TAB (ELIQUIS) PO SCH (21:00)
[2021-08-06] MEDS: MAG SULF 1GM/100ML (MAG RUN) 1 GM in IV 1 EA IV SCH ×2 (21:20→22:37)
[2021-08-07] VITALS: BP 115/62
[2021-08-07] MEDS: oxyCODONE 5MG TAB PO PRN ×6 (00:11→23:50)
[2021-08-07] MEDS ORDERED: guaiFENesin 200 MG TAB PO PRN (03:45)
[2021-08-07] MEDS ORDERED: SODIUM CHLORIDE NASAL 0.65% SPRAY BTL (OCEAN) PRN (03:45)
[2021-08-07 04:00] VITALS: BP 117/63
[2021-08-07 06:30] LABS: BASO # 0.1 10^3/uL (0.0-0.2); BASO % 1.9 % (0.0-1.0); EOS # 0.3 10^3/uL (0.0-0.5); HEMATOCRIT 32.4 % (42.0-52.0); LYMPH # 1.1 10^3/uL (1.5-5.0); LYMPH % 29.4 % (24.0-44.0); MEAN CORPUSCULAR HEMOGLOBIN 31.3 pg (27.0-33.0); MONO # 0.5 10^3/uL (0.0-0.8); MONO % 12.7 % (2.0-8.0); NEUTROPHILS # 1.8 10^3/uL (1.5-8.5); NEUTROPHILS % 48.7 % (36.0-66.0); RED BLOOD COUNT 3.52 10^6/uL (4.30-6.10); WHITE BLOOD COUNT 3.7 10^3/uL (4.0-10.0)
[2021-08-07 06:31] LABS: PLATELET COUNT, AUTOMATED 84 10^3/uL (150-450)
[2021-08-07 06:44] LABS: INR 1.97; PROTHROMBIN TIME 22.8 SECONDS (12.7-14.5)
[2021-08-07 07:07] LABS: ALT/SGPT 19 U/L (12-78); BILIRUBIN,TOTAL 1.3 MG/DL (0.2-1.0); BLOOD UREA NITROGEN 24 MG/DL (7-18); CARBON DIOXIDE LEVEL 24 MEQ/L (21-32); CHLORIDE LEVEL 106 MEQ/L (98-107); CREATININE FOR GFR 1.03 MG/DL (0.70-1.30); GLOMERULAR FILTRATION RATE > 60.0 (>49); GLUCOSE, FASTING 76 MG/DL (70-100); MAGNESIUM LEVEL 2.4 MG/DL (1.8-2.4); POTASSIUM SERUM 3.7 MEQ/L (3.5-5.1); SODIUM LEVEL 139 MEQ/L (136-145); TOTAL PROTEIN 4.9 GM/DL (6.4-8.2)
[2021-08-07 08:00] VITALS: BP 109/56
[2021-08-07] MEDS: LACTULOSE 20 GM/30 ML SYRUP UD PO SCH ×4 (08:39→20:30)
[2021-08-07] MEDS: SUCRALFATE SUSP 1GM/10ML UD PO SCH ×4 (08:39→20:28)
[2021-08-07] MEDS: MAGNESIUM OXIDE 400MG TAB (MAG-OX) PO SCH (08:39)
[2021-08-07] MEDS: PANTOPRAZOLE 40MG VIAL (C9113 PER 1) IV SCH ×2 (08:41→20:29)
[2021-08-07] MEDS: SPIRONOLACTONE 50 MG TAB PO SCH (08:41)
[2021-08-07] MEDS: FUROSEMIDE 20 MG TAB PO SCH (08:41)
[2021-08-07] MEDS: rifAXIMin 550 MG TAB (XIFAXAN) PO SCH ×2 (08:41→20:28)
[2021-08-07 10:54] LABS: ACETAMINOPHEN LEVEL 7.3 UG/ML (10.0-30.0); BILIRUBIN,DIRECT 0.6 MG/DL (0.0-0.2); BILIRUBIN,TOTAL 1.3 MG/DL (0.2-1.0)
[2021-08-07 12:00] VITALS: BP 101/59
[2021-08-07 16:33] LABS: HEMATOCRIT 31.3 % (42.0-52.0); HEMOGLOBIN 10.7 g/dl (13.5-17.5)
[2021-08-07] MEDS: cefTRIAXone SOD 1 GM in D5W MINI-BAG PLUS 50 ML IV SCH (17:43)
[2021-08-07 20:00] VITALS: BP 106/60
[2021-08-07] MEDS: atenoloL 25 MG TAB PO SCH (20:29)
[2021-08-08 04:00] VITALS: BP 108/58
[2021-08-08] MEDS: oxyCODONE 5MG TAB PO PRN (05:39)
[2021-08-08 05:45] LABS: BASO # 0.1 10^3/uL (0.0-0.2); BASO % 1.5 % (0.0-1.0); EOS # 0.2 10^3/uL (0.0-0.5); EOS % 5.8 % (0.0-3.0); HEMOGLOBIN 10.8 g/dl (13.5-17.5); LYMPH % 30.7 % (24.0-44.0); MEAN CORPUSCULAR HEMOGLOBIN 31.4 pg (27.0-33.0); MEAN CORPUSCULAR HGB CONC 33.8 g/dl (32.0-36.5); MONO # 0.5 10^3/uL (0.0-0.8); MONO % 15.8 % (2.0-8.0); NEUTROPHILS # 1.5 10^3/uL (1.5-8.5); NEUTROPHILS % 45.9 % (36.0-66.0); RED BLOOD COUNT 3.44 10^6/uL (4.30-6.10); WHITE BLOOD COUNT 3.3 10^3/uL (4.0-10.0)
[2021-08-08 05:48] LABS: PLATELET COUNT, AUTOMATED 76 10^3/uL (150-450)
[2021-08-08 05:54] LABS: INR 1.56; PROTHROMBIN TIME 19.1 SECONDS (12.7-14.5)
[2021-08-08 06:12] LABS: ALT/SGPT 17 U/L (12-78); BILIRUBIN,TOTAL 1.2 MG/DL (0.2-1.0); BLOOD UREA NITROGEN 18 MG/DL (7-18); CALCIUM LEVEL 7.6 MG/DL (8.8-10.2); CARBON DIOXIDE LEVEL 26 MEQ/L (21-32); CHLORIDE LEVEL 111 MEQ/L (98-107); CREATININE FOR GFR 0.74 MG/DL (0.70-1.30); GLOMERULAR FILTRATION RATE > 60.0 (>49); GLUCOSE, FASTING 78 MG/DL (70-100); MAGNESIUM LEVEL 1.9 MG/DL (1.8-2.4); POTASSIUM SERUM 4.6 MEQ/L (3.5-5.1); SODIUM LEVEL 142 MEQ/L (136-145)
[2021-08-08 08:00] VITALS: BP 117/61
[2021-08-08] MEDS: SUCRALFATE SUSP 1GM/10ML UD PO SCH (08:21)
[2021-08-08] MEDS: PANTOPRAZOLE 40MG VIAL (C9113 PER 1) IV SCH (08:21)
[2021-08-08] MEDS: LACTULOSE 20 GM/30 ML SYRUP UD PO SCH (08:21)
[2021-08-08] MEDS: FUROSEMIDE 20 MG TAB PO SCH (08:21)
[2021-08-08] MEDS: MAGNESIUM OXIDE 400MG TAB (MAG-OX) PO SCH (08:22)
[2021-08-08] MEDS: SPIRONOLACTONE 50 MG TAB PO SCH (08:22)
[2021-08-08] MEDS: rifAXIMin 550 MG TAB (XIFAXAN) PO SCH (08:22)
[2021-08-08] MEDS ORDERED: FLUBLOK(EGG FREE)(QUAD)INFLUENZA VACC 0.5ML SYRINGE 18YRS & OLDER IM ONE (09:00)
== END 2021-08-08 10:37 | disposition home or self-care (01) | DRG 918 ==
LOC: M ED 09:47 → M ED INP 13:04 → ENRESERV 16:40 → M PCU 18:39
PROVIDERS: ADMIT Internal Medicine Nephrology; ATTEND Internal Medicine Nephrology
DX: T39.1X1A Poisoning by 4-Aminophenol derivatives, accidental (unintentional), initial encounter (principal); K92.2 Gastrointestinal hemorrhage, unspecified; D68.4 Acquired coagulation factor deficiency; F11.20 Opioid dependence, uncomplicated; M87.051 Idiopathic aseptic necrosis of right femur; K75.81 Nonalcoholic steatohepatitis (NASH); K74.69 Other cirrhosis of liver; M54.9 Dorsalgia, unspecified; M15.0 Primary generalized (osteo)arthritis; K21.9 Gastro-esophageal reflux disease without esophagitis; K80.20 Calculus of gallbladder without cholecystitis without obstruction; G43.909 Migraine, unspecified, not intractable, without status migrainosus; K82.8 Other specified diseases of gallbladder; D69.6 Thrombocytopenia, unspecified; R16.1 Splenomegaly, not elsewhere classified; E78.5 Hyperlipidemia, unspecified; R10.11 Right upper quadrant pain; K72.10 Chronic hepatic failure without coma; Z79.01 Long term (current) use of anticoagulants; Z86.711 Personal history of pulmonary embolism; Z79.899 Other long term (current) drug therapy; Z98.84 Bariatric surgery status; Z79.1 Long term (current) use of non-steroidal anti-inflammatories (NSAID); Z87.11 Personal history of peptic ulcer disease; Z95.828 Presence of other vascular implants and grafts

== ENCOUNTER → 2021-08-13 | Outpatient (CLI) | payer OTHER, MEDICARE ==
[~2021-08-13] MED LIST changes: +LACT20EL PO; +ROSU5TAB5 PO
[2021-08-13 12:21] LABS: INR 1.54; PROTHROMBIN TIME 18.9 SECONDS (12.7-14.5)
[2021-08-13 12:31] LABS: ALBUMIN 2.6 GM/DL (3.2-5.2); ALT/SGPT 19 U/L (12-78); BILIRUBIN,DIRECT 0.8 MG/DL (0.0-0.2); BILIRUBIN,TOTAL 1.6 MG/DL (0.2-1.0); BLOOD UREA NITROGEN 7 MG/DL (7-18); CALCIUM LEVEL 8.6 MG/DL (8.8-10.2); CARBON DIOXIDE LEVEL 26 MEQ/L (21-32); CHLORIDE LEVEL 110 MEQ/L (98-107); CREATININE FOR GFR 0.66 MG/DL (0.70-1.30); GLOMERULAR FILTRATION RATE > 60.0 (>49); GLUCOSE, FASTING 81 MG/DL (70-100); POTASSIUM SERUM 4.3 MEQ/L (3.5-5.1); SODIUM LEVEL 144 MEQ/L (136-145); TOTAL PROTEIN 5.8 GM/DL (6.4-8.2)
== END ==
LOC: M WUC 09:05
PROVIDERS: ATTEND Nurse Practitioner Family
DX: K74.60 Unspecified cirrhosis of liver (principal)

== ENCOUNTER → 2021-08-23 | Outpatient (CLI) | payer OTHER, MEDICARE ==
[2021-08-23 17:41] LABS: INR 1.65; PROTHROMBIN TIME 19.9 SECONDS (12.7-14.5)
[2021-08-23 17:43] LABS: ALBUMIN 2.5 GM/DL (3.2-5.2); ALT/SGPT 20 U/L (12-78); BILIRUBIN,DIRECT 0.7 MG/DL (0.0-0.2); BILIRUBIN,TOTAL 1.5 MG/DL (0.2-1.0); BLOOD UREA NITROGEN 8 MG/DL (7-18); CALCIUM LEVEL 8.4 MG/DL (8.8-10.2); CARBON DIOXIDE LEVEL 28 MEQ/L (21-32); CHLORIDE LEVEL 109 MEQ/L (98-107); CREATININE FOR GFR 0.65 MG/DL (0.70-1.30); GLOMERULAR FILTRATION RATE > 60.0 (>49); GLUCOSE, FASTING 85 MG/DL (70-100); SODIUM LEVEL 143 MEQ/L (136-145); TOTAL PROTEIN 5.8 GM/DL (6.4-8.2)
== END ==
LOC: M WUC 14:31
PROVIDERS: ATTEND Nurse Practitioner Family
DX: K74.60 Unspecified cirrhosis of liver (principal)

== ENCOUNTER → 2021-08-23 | Outpatient (CLI) | payer OTHER, MEDICARE ==
[2021-08-23 17:06] LABS: BASO # 0.1 10^3/uL (0.0-0.2); BASO % 1.4 % (0.0-1.0); EOS # 0.4 10^3/uL (0.0-0.5); EOS % 7.8 % (0.0-3.0); HEMATOCRIT 37.2 % (42.0-52.0); HEMOGLOBIN 12.3 g/dl (13.5-17.5); LYMPH # 1.5 10^3/uL (1.5-5.0); MEAN CORPUSCULAR HGB CONC 33.1 g/dl (32.0-36.5); MEAN CORPUSCULAR VOLUME 93.7 fl (80.0-96.0); MONO # 0.6 10^3/uL (0.0-0.8); MONO % 11.5 % (2.0-8.0); NEUTROPHILS # 2.4 10^3/uL (1.5-8.5); NEUTROPHILS % 48.9 % (36.0-66.0); PLATELET COUNT, AUTOMATED 160 10^3/uL (150-450); RED BLOOD COUNT 3.97 10^6/uL (4.30-6.10); WHITE BLOOD COUNT 4.9 10^3/uL (4.0-10.0)
[2021-08-23 18:01] LABS: ALBUMIN 2.5 GM/DL (3.2-5.2); ALT/SGPT 20 U/L (12-78); AMYLASE 32 U/L (25-115); BILIRUBIN,TOTAL 1.3 MG/DL (0.2-1.0); BLOOD UREA NITROGEN 8 MG/DL (7-18); CALCIUM LEVEL 8.4 MG/DL (8.8-10.2); CARBON DIOXIDE LEVEL 27 MEQ/L (21-32); CHLORIDE LEVEL 110 MEQ/L (98-107); CREATININE FOR GFR 0.65 MG/DL (0.70-1.30); GLOMERULAR FILTRATION RATE > 60.0 (>49); GLUCOSE, FASTING 85 MG/DL (70-100); LIPASE 124 U/L (73-393); POTASSIUM SERUM 4.2 MEQ/L (3.5-5.1); SODIUM LEVEL 142 MEQ/L (136-145); TOTAL PROTEIN 5.7 GM/DL (6.4-8.2)
== END ==
LOC: M WUC 14:40
PROVIDERS: ATTEND Family Medicine
DX: K92.2 Gastrointestinal hemorrhage, unspecified (principal); K72.90 Hepatic failure, unspecified without coma; K85.90 Acute pancreatitis without necrosis or infection, unspecified

== ENCOUNTER → 2021-08-23 | Outpatient (CLI) | payer OTHER, MEDICARE | LOC: M WUC 14:36 | DX: R91.8 Other nonspecific abnormal finding of lung field (principal) ==

== ENCOUNTER 2021-09-28 02:37 | Emergency (ER) | payer OTHER, MEDICARE ==
[~2021-09-28] VITALS: Ht 175.3 cm; Wt 86.4 kg
[~2021-09-28 02:37] MED LIST changes: -D31000TA2 PO; +VITA100093 PO
[2021-09-28 04:31] LABS: BASO % 1.1 % (0.0-1.0); EOS # 0.2 10^3/uL (0.0-0.5); EOS % 4.1 % (0.0-3.0); HEMATOCRIT 33.9 % (42.0-52.0); HEMOGLOBIN 11.9 g/dl (13.5-17.5); INR 1.87; LYMPH % 26.1 % (24.0-44.0); MEAN CORPUSCULAR HGB CONC 35.1 g/dl (32.0-36.5); MEAN CORPUSCULAR VOLUME 91.1 fl (80.0-96.0); MONO # 0.4 10^3/uL (0.0-0.8); NEUTROPHILS # 2.1 10^3/uL (1.5-8.5); NEUTROPHILS % 56.4 % (36.0-66.0); PLATELET COUNT, AUTOMATED 84 10^3/uL (150-450); PROTHROMBIN TIME 21.9 SECONDS (12.7-14.5); RED BLOOD COUNT 3.72 10^6/uL (4.30-6.10); WHITE BLOOD COUNT 3.7 10^3/uL (4.0-10.0)
[2021-09-28 04:32] LABS: PARTIAL THROMBOPLASTIN TIME 45.8 SECONDS (25.9-37.0)
[2021-09-28 04:48] LABS: ALBUMIN 2.3 GM/DL (3.2-5.2); ALT/SGPT 19 U/L (12-78); BILIRUBIN,DIRECT 1.1 MG/DL (0.0-0.2); BILIRUBIN,TOTAL 2.1 MG/DL (0.2-1.0); BLOOD UREA NITROGEN 9 MG/DL (7-18); CALCIUM LEVEL 7.7 MG/DL (8.8-10.2); CARBON DIOXIDE LEVEL 25 MEQ/L (21-32); CHLORIDE LEVEL 113 MEQ/L (98-107); CREATININE FOR GFR 0.67 MG/DL (0.70-1.30); GLOMERULAR FILTRATION RATE > 60.0 (>49); GLUCOSE, FASTING 88 MG/DL (70-100); LIPASE 114 U/L (73-393); SODIUM LEVEL 142 MEQ/L (136-145); TOTAL PROTEIN 5.3 GM/DL (6.4-8.2)
[2021-09-28 04:49] LABS: CK-MB VALUE MASS < 1.0 NG/ML (<3.6); CPK CREATINE PHOSPHOKINASE 52 U/L (39-308); MB/CK RELATIVE INDEX 1.92 (< OR =4)
[2021-09-28] MEDS ORDERED: NS 1,000 ML IV ONE (06:25)
[2021-09-28] MEDS ORDERED: ONDANSETRON 4MG/2ML VIAL IV ONE (06:25)
[2021-09-28] MEDS ORDERED: MORPHINE 4 MG/ML 1ML VIAL/SYRINGE IV ONE ×2 (06:25→08:20)
[2021-09-28] MEDS ORDERED: ISOVUE-370 76% 100ML VIAL As Ordered ONE (06:34)
[2021-09-28 10:00] VITALS: BP 91/50
== END 2021-09-28 10:21 | disposition home or self-care (01) ==
LOC: M ED 02:37
DX: R10.30 Lower abdominal pain, unspecified (principal); M54.50 Low back pain, unspecified; R94.31 Abnormal electrocardiogram [ECG] [EKG]; Z87.442 Personal history of urinary calculi; K74.60 Unspecified cirrhosis of liver; R16.1 Splenomegaly, not elsewhere classified; N28.1 Cyst of kidney, acquired; Z96.89 Presence of other specified functional implants; K80.20 Calculus of gallbladder without cholecystitis without obstruction; Z88.8 Allergy status to other drugs, medicaments and biological substances; Z79.01 Long term (current) use of anticoagulants; Z79.899 Other long term (current) drug therapy
CPT/HCPCS: 71045; 74177; 80048; 80076; 81001; 82550; 82553; 83605; 83690; 84484; 85025; 85049; 85055; 85610; 85730; 93005; 93041; 96361; 96374; 96375; 96376; 99285; J2270; J2405; Q9967

== ENCOUNTER → 2021-10-05 | Outpatient (CLI) | payer OTHER, MEDICARE ==
[2021-10-05 13:57] LABS: BASO # 0.1 10^3/uL (0.0-0.2); BASO % 1.9 % (0.0-1.0); EOS # 0.3 10^3/uL (0.0-0.5); EOS % 7.4 % (0.0-3.0); HEMATOCRIT 34.3 % (42.0-52.0); HEMOGLOBIN 11.6 g/dl (13.5-17.5); LYMPH # 1.2 10^3/uL (1.5-5.0); MEAN CORPUSCULAR HEMOGLOBIN 30.9 pg (27.0-33.0); MEAN CORPUSCULAR HGB CONC 33.8 g/dl (32.0-36.5); MEAN CORPUSCULAR VOLUME 91.2 fl (80.0-96.0); MONO # 0.5 10^3/uL (0.0-0.8); MONO % 12.8 % (2.0-8.0); NEUTROPHILS # 1.6 10^3/uL (1.5-8.5); NEUTROPHILS % 44.6 % (36.0-66.0); PLATELET COUNT, AUTOMATED 100 10^3/uL (150-450); RED BLOOD COUNT 3.76 10^6/uL (4.30-6.10); WHITE BLOOD COUNT 3.7 10^3/uL (4.0-10.0)
[2021-10-05 17:45] LABS: ALBUMIN 2.1 GM/DL (3.2-5.2); ALT/SGPT 21 U/L (12-78); AMYLASE 28 U/L (25-115); BILIRUBIN,TOTAL 1.4 MG/DL (0.2-1.0); BLOOD UREA NITROGEN 6 MG/DL (7-18); CALCIUM LEVEL 8.3 MG/DL (8.8-10.2); CARBON DIOXIDE LEVEL 25 MEQ/L (21-32); CHLORIDE LEVEL 111 MEQ/L (98-107); CREATININE FOR GFR 0.57 MG/DL (0.70-1.30); GLOMERULAR FILTRATION RATE > 60.0 (>49); GLUCOSE, FASTING 75 MG/DL (70-100); LIPASE 91 U/L (73-393); POTASSIUM SERUM 3.8 MEQ/L (3.5-5.1); SODIUM LEVEL 142 MEQ/L (136-145)
[2021-10-05 17:47] LABS: VITAMIN B12 LEVEL 1221 PG/ML (247-911)
[2021-10-06 10:58] LABS: TOTAL 25(OH) VITAMIN D 42.1 NG/ML (30.0-100.0)
== END ==
LOC: M WUC 11:30
PROVIDERS: ATTEND Family Medicine
DX: R76.8 Other specified abnormal immunological findings in serum (principal); R18.8 Other ascites; K80.10 Calculus of gallbladder with chronic cholecystitis without obstruction; K74.60 Unspecified cirrhosis of liver; N62 Hypertrophy of breast

== ENCOUNTER → 2021-10-05 | Outpatient (CLI) | payer OTHER, MEDICARE ==
[2021-10-05 14:13] LABS: INR 1.84; PROTHROMBIN TIME 21.7 SECONDS (12.7-14.5)
[2021-10-05 14:21] LABS: ALBUMIN 2.1 GM/DL (3.2-5.2); ALT/SGPT 24 U/L (12-78); BILIRUBIN,DIRECT 0.8 MG/DL (0.0-0.2); BILIRUBIN,TOTAL 1.6 MG/DL (0.2-1.0); BLOOD UREA NITROGEN 6 MG/DL (7-18); CALCIUM LEVEL 7.8 MG/DL (8.8-10.2); CARBON DIOXIDE LEVEL 28 MEQ/L (21-32); CHLORIDE LEVEL 110 MEQ/L (98-107); CREATININE FOR GFR 0.63 MG/DL (0.70-1.30); GLOMERULAR FILTRATION RATE > 60.0 (>49); GLUCOSE, FASTING 72 MG/DL (70-100); POTASSIUM SERUM 3.7 MEQ/L (3.5-5.1); SODIUM LEVEL 141 MEQ/L (136-145)
== END ==
LOC: M WUC 11:37
PROVIDERS: ATTEND Nurse Practitioner Family
DX: K74.60 Unspecified cirrhosis of liver (principal)

== ENCOUNTER → 2021-10-06 | Outpatient (REF) | payer OTHER, MEDICARE | LOC: M WUC 15:36 | PROVIDERS: ATTEND Family Medicine | DX: Z98.84 Bariatric surgery status (principal); I10 Essential (primary) hypertension; G47.30 Sleep apnea, unspecified; E66.9 Obesity, unspecified ==

== ENCOUNTER → 2021-11-04 | Outpatient (CLI) | payer MEDICARE, OTHER ==
[2021-11-04 16:34] LABS: INR 1.62; PROTHROMBIN TIME 19.7 SECONDS (12.7-14.5)
[2021-11-04 16:59] LABS: ALBUMIN 2.2 GM/DL (3.2-5.2); ALT/SGPT 19 U/L (12-78); BILIRUBIN,DIRECT 0.9 MG/DL (0.0-0.2); BILIRUBIN,TOTAL 1.7 MG/DL (0.2-1.0); BLOOD UREA NITROGEN 5 MG/DL (7-18); CARBON DIOXIDE LEVEL 30 MEQ/L (21-32); CHLORIDE LEVEL 110 MEQ/L (98-107); CREATININE FOR GFR 0.68 MG/DL (0.70-1.30); GLOMERULAR FILTRATION RATE > 60.0 (>49); GLUCOSE, FASTING 98 MG/DL (70-100); POTASSIUM SERUM 4.1 MEQ/L (3.5-5.1); SODIUM LEVEL 141 MEQ/L (136-145); TOTAL PROTEIN 5.3 GM/DL (6.4-8.2)
== END ==
LOC: M WUC 10:47
PROVIDERS: ATTEND Nurse Practitioner Family
DX: K74.60 Unspecified cirrhosis of liver (principal)

== ENCOUNTER → 2021-12-01 | Outpatient (CLI) | payer MEDICARE, OTHER | LOC: M RAD 09:08 | PROVIDERS: ATTEND Nurse Practitioner Acute Care | DX: K74.69 Other cirrhosis of liver (principal) ==

== ENCOUNTER → 2021-12-09 | Outpatient (CLI) | payer MEDICARE, OTHER ==
[2021-12-09 16:37] LABS: INR 1.69; PROTHROMBIN TIME 20.3 SECONDS (12.7-14.5)
[2021-12-09 16:39] LABS: ALBUMIN 2.2 GM/DL (3.2-5.2); ALT/SGPT 18 U/L (12-78); BILIRUBIN,DIRECT 1.1 MG/DL (0.0-0.2); BILIRUBIN,TOTAL 1.8 MG/DL (0.2-1.0); BLOOD UREA NITROGEN 5 MG/DL (7-18); CALCIUM LEVEL 7.9 MG/DL (8.8-10.2); CARBON DIOXIDE LEVEL 28 MEQ/L (21-32); CHLORIDE LEVEL 110 MEQ/L (98-107); CREATININE FOR GFR 0.73 MG/DL (0.70-1.30); GLOMERULAR FILTRATION RATE > 60.0 (>49); GLUCOSE, FASTING 86 MG/DL (70-100); POTASSIUM SERUM 3.7 MEQ/L (3.5-5.1); SODIUM LEVEL 143 MEQ/L (136-145); TOTAL PROTEIN 5.4 GM/DL (6.4-8.2)
== END ==
LOC: M WUC 11:30
PROVIDERS: ATTEND Nurse Practitioner Family
DX: K74.60 Unspecified cirrhosis of liver (principal)

== ENCOUNTER → 2021-12-29 | Outpatient (CLI) | payer MEDICARE, OTHER ==
[2021-12-29 12:37] LABS: BASO # 0.1 10^3/uL (0.0-0.2); BASO % 1.5 % (0.0-1.0); EOS # 0.2 10^3/uL (0.0-0.5); EOS % 4.6 % (0.0-3.0); HEMATOCRIT 37.8 % (42.0-52.0); HEMOGLOBIN 12.5 g/dl (13.5-17.5); LYMPH # 1.5 10^3/uL (1.5-5.0); LYMPH % 28.7 % (24.0-44.0); MEAN CORPUSCULAR HEMOGLOBIN 30.6 pg (27.0-33.0); MEAN CORPUSCULAR HGB CONC 33.1 g/dl (32.0-36.5); MEAN CORPUSCULAR VOLUME 92.4 fl (80.0-96.0); MONO # 0.5 10^3/uL (0.0-0.8); MONO % 9.1 % (2.0-8.0); NEUTROPHILS # 2.9 10^3/uL (1.5-8.5); NEUTROPHILS % 55.7 % (36.0-66.0); PLATELET COUNT, AUTOMATED 144 10^3/uL (150-450); RED BLOOD COUNT 4.09 10^6/uL (4.30-6.10); WHITE BLOOD COUNT 5.3 10^3/uL (4.0-10.0)
[2021-12-29 13:32] LABS: ALBUMIN 2.1 GM/DL (3.2-5.2); ALT/SGPT 17 U/L (12-78); AMYLASE 33 U/L (25-115); BILIRUBIN,TOTAL 1.9 MG/DL (0.2-1.0); BLOOD UREA NITROGEN 6 MG/DL (7-18); CALCIUM LEVEL 8.1 MG/DL (8.8-10.2); CARBON DIOXIDE LEVEL 29 MEQ/L (21-32); CHLORIDE LEVEL 108 MEQ/L (98-107); CHOLESTEROL LEVEL 85 MG/DL (<200); CHOLESTEROL RISK RATIO 1.734 (<5); CREATININE FOR GFR 0.66 MG/DL (0.70-1.30); FERRITIN 304 NG/ML (26-388); GLOMERULAR FILTRATION RATE > 60.0 (>49); GLUCOSE, FASTING 80 MG/DL (70-100); HDL CHOLESTEROL 49 MG/DL (>40); IRON (FE) 101 UG/DL (65-175); LDL CHOLESTEROL 27 MG/DL (<100); LIPASE 103 U/L (73-393); MAGNESIUM LEVEL 1.4 MG/DL (1.8-2.4); NON-HDL-C 36 MG/DL; PERCENT SATURATION 91.8 % (19.7-50.0); POTASSIUM SERUM 4.4 MEQ/L (3.5-5.1); SODIUM LEVEL 140 MEQ/L (136-145); TOTAL IRON BINDING CAPACITY 110 UG/DL (250-450); TOTAL PROTEIN 5.2 GM/DL (6.4-8.2); TRIGLYCERIDES LEVEL 46 MG/DL (<150); VITAMIN B12 LEVEL > 2000 PG/ML (247-911)
[2021-12-29 17:08] LABS: HEMOGLOBIN A1c 4.1 %
== END ==
LOC: M WUC 09:36
PROVIDERS: ATTEND Family Medicine
DX: R76.8 Other specified abnormal immunological findings in serum (principal); R18.8 Other ascites; K80.10 Calculus of gallbladder with chronic cholecystitis without obstruction; K74.60 Unspecified cirrhosis of liver; N62 Hypertrophy of breast; K21.9 Gastro-esophageal reflux disease without esophagitis; K72.90 Hepatic failure, unspecified without coma; Z98.84 Bariatric surgery status; I10 Essential (primary) hypertension; E88.09 Other disorders of plasma-protein metabolism, not elsewhere classified; E16.2 Hypoglycemia, unspecified; R23.1 Pallor; R92.8 Other abnormal and inconclusive findings on diagnostic imaging of breast; E66.9 Obesity, unspecified; M16.9 Osteoarthritis of hip, unspecified; M81.0 Age-related osteoporosis without current pathological fracture; M25.551 Pain in right hip; M25.561 Pain in right knee; K85.90 Acute pancreatitis without necrosis or infection, unspecified; K25.9 Gastric ulcer, unspecified as acute or chronic, without hemorrhage or perforation; J90 Pleural effusion, not elsewhere classified; I26.99 Other pulmonary embolism without acute cor pulmonale; K40.90 Unilateral inguinal hernia, without obstruction or gangrene, not specified as recurrent; G47.30 Sleep apnea, unspecified; I47.1 Supraventricular tachycardia; D69.6 Thrombocytopenia, unspecified

== ENCOUNTER → 2021-12-29 | Outpatient (CLI) | payer MEDICARE, OTHER ==
[2021-12-29 12:51] LABS: INR 1.7; PROTHROMBIN TIME 20.4 SECONDS (12.7-14.5)
[2021-12-29 13:18] LABS: ALBUMIN 2.1 GM/DL (3.2-5.2); ALT/SGPT 17 U/L (12-78); BILIRUBIN,TOTAL 1.9 MG/DL (0.2-1.0); BLOOD UREA NITROGEN 6 MG/DL (7-18); CALCIUM LEVEL 8.2 MG/DL (8.8-10.2); CARBON DIOXIDE LEVEL 30 MEQ/L (21-32); CHLORIDE LEVEL 108 MEQ/L (98-107); CREATININE FOR GFR 0.65 MG/DL (0.70-1.30); GLOMERULAR FILTRATION RATE > 60.0 (>49); GLUCOSE, FASTING 82 MG/DL (70-100); POTASSIUM SERUM 4.3 MEQ/L (3.5-5.1); SODIUM LEVEL 140 MEQ/L (136-145); TOTAL PROTEIN 5.3 GM/DL (6.4-8.2)
== END ==
LOC: M WUC 09:44
PROVIDERS: ATTEND Nurse Practitioner Family
DX: K74.60 Unspecified cirrhosis of liver (principal)

== ENCOUNTER → 2022-02-17 | Outpatient (REF) | payer MEDICARE, OTHER ==
[2022-02-17 17:17] LABS: INR 1.76; PROTHROMBIN TIME 20.9 SECONDS (12.7-14.5)
[2022-02-17 17:42] LABS: ALBUMIN 2.1 GM/DL (3.2-5.2); ALT/SGPT 23 U/L (12-78); BILIRUBIN,DIRECT 1.2 MG/DL (0.0-0.2); BILIRUBIN,TOTAL 1.8 MG/DL (0.2-1.0); BLOOD UREA NITROGEN 7 MG/DL (7-18); CALCIUM LEVEL 8.4 MG/DL (8.8-10.2); CARBON DIOXIDE LEVEL 29 MEQ/L (21-32); CHLORIDE LEVEL 108 MEQ/L (98-107); CREATININE FOR GFR 0.66 MG/DL (0.70-1.30); GLOMERULAR FILTRATION RATE > 60.0 (>49); GLUCOSE, FASTING 82 MG/DL (70-100); POTASSIUM SERUM 4.5 MEQ/L (3.5-5.1); SODIUM LEVEL 141 MEQ/L (136-145); TOTAL PROTEIN 5.2 GM/DL (6.4-8.2)
== END ==
LOC: M WUC 16:24
PROVIDERS: ATTEND Nurse Practitioner Family
DX: K74.60 Unspecified cirrhosis of liver (principal)

== ENCOUNTER 2022-02-28 14:42 | Emergency (ER) | payer OTHER, MEDICARE ==
[~2022-02-28] VITALS: Ht 175.3 cm; Wt 93.2 kg
[2022-02-28] MEDS ORDERED: FAMO20TA5 PO (14:53)
[2022-02-28 16:06] LABS: BASO # 0.1 10^3/uL (0.0-0.2); BASO % 1.5 % (0.0-1.0); EOS # 0.2 10^3/uL (0.0-0.5); EOS % 3.9 % (0.0-3.0); HEMATOCRIT 36.2 % (42.0-52.0); HEMOGLOBIN 12.5 g/dl (13.5-17.5); LYMPH # 1.2 10^3/uL (1.5-5.0); LYMPH % 28.3 % (24.0-44.0); MEAN CORPUSCULAR HEMOGLOBIN 31.7 pg (27.0-33.0); MEAN CORPUSCULAR HGB CONC 34.5 g/dl (32.0-36.5); MEAN CORPUSCULAR VOLUME 91.9 fl (80.0-96.0); MONO # 0.5 10^3/uL (0.0-0.8); MONO % 11.8 % (2.0-8.0); NEUTROPHILS # 2.2 10^3/uL (1.5-8.5); NEUTROPHILS % 54.3 % (36.0-66.0); PLATELET COUNT, AUTOMATED 111 10^3/uL (150-450); RED BLOOD COUNT 3.94 10^6/uL (4.30-6.10); WHITE BLOOD COUNT 4.1 10^3/uL (4.0-10.0)
[2022-02-28] MEDS ORDERED: NITROGLYCERIN 0.4 MG SUBL TABLET SL STA (16:36)
[2022-02-28] MEDS ORDERED: ASPIRIN 81 MG CHEW TABLET PO ONE (16:40)
[2022-02-28 16:55] LABS: CK-MB VALUE MASS < 1.0 NG/ML (<3.6); CPK CREATINE PHOSPHOKINASE 130 U/L (39-308); MB/CK RELATIVE INDEX 0.77 (< OR =4)
[2022-02-28] MEDS ORDERED: MORPHINE 4 MG/ML 1ML VIAL/SYRINGE IV PRN (16:55)
[2022-02-28 17:01] LABS: ALT/SGPT 27 U/L (12-78); BILIRUBIN,DIRECT 0.6 MG/DL (0.0-0.2); BILIRUBIN,TOTAL 1.8 MG/DL (0.2-1.0); BLOOD UREA NITROGEN 7 MG/DL (7-18); CALCIUM LEVEL 8.3 MG/DL (8.8-10.2); CARBON DIOXIDE LEVEL 23 MEQ/L (21-32); CHLORIDE LEVEL 112 MEQ/L (98-107); CREATININE FOR GFR 0.68 MG/DL (0.70-1.30); FREE T4 1.17 NG/DL (0.76-1.46); GLOMERULAR FILTRATION RATE > 60.0 (>49); GLUCOSE, FASTING 89 MG/DL (70-100); LIPASE 98 U/L (73-393); NT-PRO BNP 642 PG/ML (<125); POTASSIUM SERUM 5.1 MEQ/L (3.5-5.1); SODIUM LEVEL 140 MEQ/L (136-145); TOTAL PROTEIN 5.6 GM/DL (6.4-8.2)
[2022-02-28] MEDS ORDERED: FUROSEMIDE 40MG/4ML VIAL (J1940) IV ONE (17:20)
[2022-02-28] MEDS ORDERED: ISOVUE-370 76% 100ML VIAL As Ordered ONE (17:21)
[2022-02-28 17:52] LABS: CK-MB VALUE MASS < 1.0 NG/ML (<3.6); CPK CREATINE PHOSPHOKINASE 121 U/L (39-308); MB/CK RELATIVE INDEX 0.83 (< OR =4)
[2022-02-28 19:00] VITALS: BP 120/70
[2022-02-28] MEDS ORDERED: oxyCODONE 5MG TAB PO ONE (19:05)
[2022-02-28] MEDS ORDERED: LevoFLOXacin 750 MG TABLET PO ONE (19:05)
[2022-02-28] MEDS ORDERED: OXYC-517 PO (19:07)
[2022-02-28] MEDS ORDERED: LEVO750T14 PO (19:07)
== END 2022-02-28 19:30 | disposition home or self-care (01) ==
LOC: M ED 14:42
DX: J90 Pleural effusion, not elsewhere classified (principal); J18.9 Pneumonia, unspecified organism; G89.29 Other chronic pain; I48.91 Unspecified atrial fibrillation; I10 Essential (primary) hypertension; E78.5 Hyperlipidemia, unspecified; Z79.01 Long term (current) use of anticoagulants; Z79.891 Long term (current) use of opiate analgesic; Z79.899 Other long term (current) drug therapy; Z88.8 Allergy status to other drugs, medicaments and biological substances; Z95.5 Presence of coronary angioplasty implant and graft; Z98.84 Bariatric surgery status
CPT/HCPCS: 71045; 71275; 80048; 80076; 82550; 82553; 83690; 83880; 84439; 84443; 84484; 85025; 93005; 93041; 94760; 96374; 96375; 99285; J1940; J2270; Q9967

== ENCOUNTER 2022-03-01 18:15 | Observation (INO) | payer MEDICARE, OTHER ==
[~2022-03-01] VITALS: Ht 175.3 cm; Wt 94.0 kg
[~2022-03-01 18:15] MED LIST changes: +FAMO20TA5 PO; +LEVO750T14 PO
[2022-03-01] MEDS ORDERED: NS 1,000 ML IV ONE (18:50)
[2022-03-01] MEDS: MORPHINE 4 MG/ML 1ML VIAL/SYRINGE IV PRN ×2 (18:56→22:45)
[2022-03-01 19:04] LABS: BASO # 0.1 10^3/uL (0.0-0.2); BASO % 1.4 % (0.0-1.0); EOS # 0.3 10^3/uL (0.0-0.5); EOS % 5.2 % (0.0-3.0); HEMATOCRIT 36.8 % (42.0-52.0); HEMOGLOBIN 12.7 g/dl (13.5-17.5); LYMPH # 1.8 10^3/uL (1.5-5.0); LYMPH % 36.3 % (24.0-44.0); MEAN CORPUSCULAR HEMOGLOBIN 32.1 pg (27.0-33.0); MEAN CORPUSCULAR HGB CONC 34.5 g/dl (32.0-36.5); MEAN CORPUSCULAR VOLUME 92.9 fl (80.0-96.0); MONO # 0.6 10^3/uL (0.0-0.8); MONO % 11.3 % (2.0-8.0); NEUTROPHILS # 2.3 10^3/uL (1.5-8.5); NEUTROPHILS % 45.6 % (36.0-66.0); PLATELET COUNT, AUTOMATED 116 10^3/uL (150-450); RED BLOOD COUNT 3.96 10^6/uL (4.30-6.10)
[2022-03-01 19:17] LABS: INR 2.08; PROTHROMBIN TIME 23.8 SECONDS (12.7-14.5)
[2022-03-01 19:18] LABS: PARTIAL THROMBOPLASTIN TIME 45.7 SECONDS (25.9-37.0)
[2022-03-01 19:40] LABS: CK-MB VALUE MASS < 1.0 NG/ML (<3.6); CPK CREATINE PHOSPHOKINASE 102 U/L (39-308); MB/CK RELATIVE INDEX 0.98 (< OR =4)
[2022-03-01 19:53] LABS: ALBUMIN 2.1 GM/DL (3.2-5.2); ALT/SGPT 24 U/L (12-78); BILIRUBIN,TOTAL 1.8 MG/DL (0.2-1.0); BLOOD UREA NITROGEN 7 MG/DL (7-18); CALCIUM LEVEL 7.9 MG/DL (8.8-10.2); CARBON DIOXIDE LEVEL 25 MEQ/L (21-32); CHLORIDE LEVEL 111 MEQ/L (98-107); CREATININE FOR GFR 0.62 MG/DL (0.70-1.30); FREE T4 1.18 NG/DL (0.76-1.46); GLOMERULAR FILTRATION RATE > 60.0 (>49); GLUCOSE, FASTING 88 MG/DL (70-100); LIPASE 127 U/L (73-393); NT-PRO BNP 991 PG/ML (<125); POTASSIUM SERUM 3.6 MEQ/L (3.5-5.1); SODIUM LEVEL 140 MEQ/L (136-145); TOTAL PROTEIN 5.6 GM/DL (6.4-8.2)
[2022-03-01] MEDS ORDERED: ISOVUE-370 76% 100ML VIAL As Ordered ONE (20:05)
[2022-03-01] MEDS ORDERED: atenoloL 50 MG TAB PO ONE (21:10)
[2022-03-01 21:16] LABS: CK-MB VALUE MASS 1.1 NG/ML (<3.6); MB/CK RELATIVE INDEX 1.24 (< OR =4)
[2022-03-02] VITALS (10 sets, daily range): BP systolic 95–102; BP diastolic 56–84
[2022-03-02] MEDS ORDERED: ACETAMINOPHEN TAB 650MG DOSE (2X325MG) PO PRN
[2022-03-02] MEDS: oxyCODONE 5MG TAB PO PRN ×5 (01:23→20:30)
[2022-03-02] MEDS: APIXABAN 5 MG TAB (ELIQUIS) PO SCH ×3 (01:23→20:46)
[2022-03-02 02:03] LABS: RSV AMPLIFICATION NEGATIVE (NEGATIVE)
[2022-03-02] MEDS ORDERED: LACT20EL PO (03:42)
[2022-03-02] MEDS ORDERED: ACET-907 PO (03:46)
[2022-03-02] MEDS ORDERED: RA M10TA PO (03:46)
[2022-03-02] MEDS ORDERED: SPIR-10 PO (03:46)
[2022-03-02] MEDS ORDERED: HOME MED LIST COMPLETE! XX SCH (03:50)
[2022-03-02] MEDS ORDERED: FAMOTIDINE 20 MG TAB PO PRN (10:55)
[2022-03-02] MEDS ORDERED: CETIRIZINE (ZyrTEC) 10 MG TAB PO PRN (10:55)
[2022-03-02] MEDS ORDERED: PILL CUTTER 1 EACH XX PRN (11:25)
[2022-03-02] MEDS: LACTULOSE 20 GM/30 ML SYRUP UD PO SCH ×3 (11:55→20:46)
[2022-03-02] MEDS: rifAXIMin 550 MG TAB (XIFAXAN) PO SCH ×2 (11:55→20:47)
[2022-03-02] MEDS: VITAMIN D 1,000 INTERNATIONAL UNITS TABLET PO SCH (11:56)
[2022-03-02] MEDS: MULTIVITAMINS/MINERALS THERAP 1 TAB PO SCH (11:56)
[2022-03-02] MEDS: SUCRALFATE 1 GM TAB PO SCH ×3 (11:57→20:45)
[2022-03-02] MEDS: CYANOCOBALAMIN 500 MCG TAB PO SCH (11:57)
[2022-03-02] MEDS ORDERED: ONDANSETRON 4MG 2ML VIAL IV PRN (15:20)
[2022-03-02] MEDS: ROSUVASTATIN 10 MG TAB (CRESTOR) PO SCH (20:46)
[2022-03-02] MEDS: atenoloL 25 MG TAB PO SCH (20:47)
[2022-03-03] VITALS (25 sets, daily range): BP systolic 93–108; BP diastolic 56–80; O2SAT 92–100
[2022-03-03] MEDS: oxyCODONE 5MG TAB PO PRN ×3 (03:00→14:43)
[2022-03-03 06:07] LABS: BASO % 1.4 % (0.0-1.0); EOS # 0.2 10^3/uL (0.0-0.5); EOS % 6.3 % (0.0-3.0); HEMATOCRIT 32.8 % (42.0-52.0); HEMOGLOBIN 11.1 g/dl (13.5-17.5); LYMPH # 1.2 10^3/uL (1.5-5.0); LYMPH % 40.4 % (24.0-44.0); MEAN CORPUSCULAR HEMOGLOBIN 31.4 pg (27.0-33.0); MEAN CORPUSCULAR HGB CONC 33.8 g/dl (32.0-36.5); MEAN CORPUSCULAR VOLUME 92.9 fl (80.0-96.0); MONO # 0.4 10^3/uL (0.0-0.8); MONO % 13.7 % (2.0-8.0); NEUTROPHILS # 1.1 10^3/uL (1.5-8.5); NEUTROPHILS % 37.8 % (36.0-66.0); RED BLOOD COUNT 3.53 10^6/uL (4.30-6.10); WHITE BLOOD COUNT 2.9 10^3/uL (4.0-10.0)
[2022-03-03 07:12] LABS: PLATELET COUNT, AUTOMATED 83 10^3/uL (150-450)
[2022-03-03 07:27] LABS: ALT/SGPT 18 U/L (12-78); BILIRUBIN,TOTAL 1.4 MG/DL (0.2-1.0); BLOOD UREA NITROGEN 7 MG/DL (7-18); CALCIUM LEVEL 8.1 MG/DL (8.8-10.2); CARBON DIOXIDE LEVEL 28 MEQ/L (21-32); CHLORIDE LEVEL 110 MEQ/L (98-107); CREATININE FOR GFR 0.52 MG/DL (0.70-1.30); GLOMERULAR FILTRATION RATE > 60.0 (>49); GLUCOSE, FASTING 84 MG/DL (70-100); POTASSIUM SERUM 4.2 MEQ/L (3.5-5.1); SODIUM LEVEL 141 MEQ/L (136-145); TOTAL PROTEIN 4.7 GM/DL (6.4-8.2)
[2022-03-03] MEDS: MULTIVITAMINS/MINERALS THERAP 1 TAB PO SCH (08:36)
[2022-03-03] MEDS: LACTULOSE 20 GM/30 ML SYRUP UD PO SCH ×3 (08:36→21:13)
[2022-03-03] MEDS: SUCRALFATE 1 GM TAB PO SCH ×4 (08:36→21:13)
[2022-03-03] MEDS: CYANOCOBALAMIN 500 MCG TAB PO SCH (08:36)
[2022-03-03] MEDS: rifAXIMin 550 MG TAB (XIFAXAN) PO SCH ×2 (08:36→21:13)
[2022-03-03] MEDS: VITAMIN D 1,000 INTERNATIONAL UNITS TABLET PO SCH (08:39)
[2022-03-03] MEDS: APIXABAN 5 MG TAB (ELIQUIS) PO SCH ×2 (08:39→21:13)
[2022-03-03] MEDS ORDERED: METOCLOPRAMIDE INJ 10MG/2ML VIAL (J2765 PER 1) IV SCH (11:00)
[2022-03-03] MEDS ORDERED: SCOPOLAMINE 1MG TRANSDERMAL PATCH TOP SCH (14:00)
[2022-03-03] MEDS: MIDODRINE 5 MG TAB PO SCH (15:55)
[2022-03-03] MEDS: ROSUVASTATIN 10 MG TAB (CRESTOR) PO SCH (21:13)
[2022-03-03] MEDS: atenoloL 25 MG TAB PO SCH (21:13)
[2022-03-04] VITALS (8 sets, daily range): BP systolic 98–107; BP diastolic 58–69; O2SAT 95–98
[2022-03-04] MEDS: oxyCODONE 5MG TAB PO PRN ×3 (01:56→11:20)
[2022-03-04] MEDS: rifAXIMin 550 MG TAB (XIFAXAN) PO SCH (08:15)
[2022-03-04] MEDS: VITAMIN D 1,000 INTERNATIONAL UNITS TABLET PO SCH (08:15)
[2022-03-04] MEDS: MULTIVITAMINS/MINERALS THERAP 1 TAB PO SCH (08:15)
[2022-03-04] MEDS: MIDODRINE 5 MG TAB PO SCH ×2 (08:15→11:21)
[2022-03-04] MEDS: APIXABAN 5 MG TAB (ELIQUIS) PO SCH (08:15)
[2022-03-04] MEDS: CYANOCOBALAMIN 500 MCG TAB PO SCH (08:15)
[2022-03-04] MEDS: SUCRALFATE 1 GM TAB PO SCH ×2 (08:15→11:20)
[2022-03-04] MEDS: LACTULOSE 20 GM/30 ML SYRUP UD PO SCH (08:16)
[2022-03-04 08:51] LABS: HEMATOCRIT 31.4 % (42.0-52.0); HEMOGLOBIN 10.7 g/dl (13.5-17.5); MEAN CORPUSCULAR HEMOGLOBIN 32.1 pg (27.0-33.0); MEAN CORPUSCULAR HGB CONC 34.1 g/dl (32.0-36.5); MEAN CORPUSCULAR VOLUME 94.3 fl (80.0-96.0); RED BLOOD COUNT 3.33 10^6/uL (4.30-6.10); WHITE BLOOD COUNT 2.7 10^3/uL (4.0-10.0)
[2022-03-04 08:52] LABS: PLATELET COUNT, AUTOMATED 86 10^3/uL (150-450)
[2022-03-04] MEDS ORDERED: LACTULOSE 20 GM/30 ML SYRUP UD PO SCH (09:00)
[2022-03-04 09:30] LABS: ALBUMIN 1.9 GM/DL (3.2-5.2); ALT/SGPT 20 U/L (12-78); BILIRUBIN,TOTAL 1.8 MG/DL (0.2-1.0); BLOOD UREA NITROGEN 6 MG/DL (7-18); CALCIUM LEVEL 7.7 MG/DL (8.8-10.2); CARBON DIOXIDE LEVEL 25 MEQ/L (21-32); CHLORIDE LEVEL 111 MEQ/L (98-107); GLOMERULAR FILTRATION RATE > 60.0 (>49); GLUCOSE, FASTING 95 MG/DL (70-100); POTASSIUM SERUM 3.6 MEQ/L (3.5-5.1); SODIUM LEVEL 140 MEQ/L (136-145); TOTAL PROTEIN 4.5 GM/DL (6.4-8.2)
[2022-03-04] MEDS ORDERED: MIDO5TA PO (10:43)
== END 2022-03-04 12:26 | disposition home or self-care (01) ==
LOC: M ED 18:15 → M ED INP 23:50 → ENRESERV 03-02 04:21 → M PCU 03-02 04:43
PROVIDERS: ADMIT Internal Medicine; ATTEND Internal Medicine
DX: R10.30 Lower abdominal pain, unspecified (principal); I95.1 Orthostatic hypotension; K75.81 Nonalcoholic steatohepatitis (NASH); Z76.82 Awaiting organ transplant status; F11.20 Opioid dependence, uncomplicated; R94.31 Abnormal electrocardiogram [ECG] [EKG]; R11.2 Nausea with vomiting, unspecified; I48.91 Unspecified atrial fibrillation; R07.89 Other chest pain; M54.9 Dorsalgia, unspecified; G89.29 Other chronic pain; K21.9 Gastro-esophageal reflux disease without esophagitis; Z86.711 Personal history of pulmonary embolism; E66.01 Morbid (severe) obesity due to excess calories; Z98.84 Bariatric surgery status; R42 Dizziness and giddiness; D69.6 Thrombocytopenia, unspecified; K72.90 Hepatic failure, unspecified without coma; Z79.899 Other long term (current) drug therapy; Z79.01 Long term (current) use of anticoagulants
CPT/HCPCS: 36415; 71045; 74177; 76705; 80048; 80053; 80076; 82550; 82553; 83690; 83880; 84439; 84443; 84484; 85025; 85027; 85049; 85055; 85610; 85730; 87631; 93005; 93041; 94760; 96361; 96374; 96375; 96376; 97116; 97161; 97165; 97530; 97535; 99285; G0378; J2270; J2405; J2765; Q9967

== ENCOUNTER → 2022-04-15 | Outpatient (CLI) | payer MEDICARE, OTHER ==
[~2022-04-15] MED LIST changes: +ACET-907 PO; +MIDO5TA PO; +RA M10TA PO; +SPIR-10 PO
[2022-04-15 17:22] LABS: BASO # 0.1 10^3/uL (0.0-0.2); BASO % 1.4 % (0.0-1.0); EOS # 0.2 10^3/uL (0.0-0.5); EOS % 3.8 % (0.0-3.0); HEMATOCRIT 38.5 % (42.0-52.0); HEMOGLOBIN 12.3 g/dl (13.5-17.5); LYMPH # 1.3 10^3/uL (1.5-5.0); LYMPH % 30.2 % (24.0-44.0); MEAN CORPUSCULAR HEMOGLOBIN 31.5 pg (27.0-33.0); MEAN CORPUSCULAR HGB CONC 31.9 g/dl (32.0-36.5); MEAN CORPUSCULAR VOLUME 98.5 fl (80.0-96.0); MONO # 0.4 10^3/uL (0.0-0.8); MONO % 9.7 % (2.0-8.0); NEUTROPHILS # 2.4 10^3/uL (1.5-8.5); NEUTROPHILS % 54.4 % (36.0-66.0); PLATELET COUNT, AUTOMATED 154 10^3/uL (150-450); RED BLOOD COUNT 3.91 10^6/uL (4.30-6.10); WHITE BLOOD COUNT 4.4 10^3/uL (4.0-10.0)
[2022-04-15 17:41] LABS: INR 2.19; PROTHROMBIN TIME 24.7 SECONDS (12.5-14.5)
[2022-04-15 17:42] LABS: PARTIAL THROMBOPLASTIN TIME 44.7 SECONDS (24.8-34.2)
[2022-04-15 17:47] LABS: HEMOGLOBIN A1c 4.4 %
[2022-04-15 18:29] LABS: ALT/SGPT 19 U/L (12-78); BLOOD UREA NITROGEN 6 MG/DL (7-18); CALCIUM LEVEL 8.1 MG/DL (8.8-10.2); CARBON DIOXIDE LEVEL 27 MEQ/L (21-32); CHLORIDE LEVEL 111 MEQ/L (98-107); CREATININE FOR GFR 0.74 MG/DL (0.70-1.30); FERRITIN 462 NG/ML (26-388); GLOMERULAR FILTRATION RATE > 60.0 (>49); GLUCOSE, FASTING 96 MG/DL (70-100); IRON (FE) 108 UG/DL (65-175); PERCENT SATURATION 106.9 % (19.7-50.0); POTASSIUM SERUM 3.7 MEQ/L (3.5-5.1); PREALBUMIN < 3.0 MG/DL (20.0-40.0); SODIUM LEVEL 144 MEQ/L (136-145); TOTAL IRON BINDING CAPACITY 101 UG/DL (250-450); TOTAL PROTEIN 5.2 GM/DL (6.4-8.2)
[2022-04-15 19:05] LABS: VITAMIN B12 LEVEL > 2000 PG/ML (247-911)
== END ==
LOC: M WUC 13:33
PROVIDERS: ATTEND Family Medicine
DX: I48.91 Unspecified atrial fibrillation (principal); K81.1 Chronic cholecystitis; K74.60 Unspecified cirrhosis of liver; K21.9 Gastro-esophageal reflux disease without esophagitis; K31.84 Gastroparesis; K72.90 Hepatic failure, unspecified without coma; Z98.84 Bariatric surgery status; I10 Essential (primary) hypertension; E88.09 Other disorders of plasma-protein metabolism, not elsewhere classified; I95.9 Hypotension, unspecified; R23.1 Pallor; E66.9 Obesity, unspecified; M16.9 Osteoarthritis of hip, unspecified; M81.0 Age-related osteoporosis without current pathological fracture; K85.90 Acute pancreatitis without necrosis or infection, unspecified; K25.9 Gastric ulcer, unspecified as acute or chronic, without hemorrhage or perforation; J90 Pleural effusion, not elsewhere classified; U09.9 Post COVID-19 condition, unspecified; I26.99 Other pulmonary embolism without acute cor pulmonale; K40.90 Unilateral inguinal hernia, without obstruction or gangrene, not specified as recurrent; G47.30 Sleep apnea, unspecified; I47.1 Supraventricular tachycardia; D69.6 Thrombocytopenia, unspecified; E16.2 Hypoglycemia, unspecified

== ENCOUNTER 2022-05-08 21:08 | Emergency (ER) | payer MEDICARE, OTHER ==
[~2022-05-08] VITALS: Ht 172.7 cm; Wt 90.9 kg
[2022-05-08 21:11] VITALS: BP 98/62
== END 2022-05-08 22:15 | disposition left against medical advice (07) ==
LOC: M ED 21:08
DX: Z53.21 Procedure and treatment not carried out due to patient leaving prior to being seen by health care provider (principal)

== ENCOUNTER 2022-05-19 10:47 | Emergency (ER) | payer MEDICARE, OTHER ==
[~2022-05-19] VITALS: Ht 172.7 cm; Wt 90.9 kg
[2022-05-19] MEDS ORDERED: atenoloL 25 MG TAB PO ONE (11:20)
[2022-05-19 11:33] VITALS: BP 109/61
[2022-05-19 12:58] VITALS: BP 102/72
== END 2022-05-19 14:16 | disposition home or self-care (01) ==
LOC: M ED 10:47 → EDBD 10:47 → M ED 14:16
DX: K94.03 Colostomy malfunction (principal); I48.91 Unspecified atrial fibrillation; Z79.01 Long term (current) use of anticoagulants; Z79.899 Other long term (current) drug therapy

== ENCOUNTER → 2022-05-27 | Outpatient (CLI) | payer MEDICARE, OTHER ==
[2022-05-27 17:12] LABS: BASO # 0.1 10^3/uL (0.0-0.2); BASO % 1.5 % (0.0-1.0); EOS # 0.2 10^3/uL (0.0-0.5); HEMATOCRIT 30.6 % (42.0-52.0); HEMOGLOBIN 9.9 g/dl (13.5-17.5); LYMPH # 1.1 10^3/uL (1.5-5.0); LYMPH % 22.2 % (24.0-44.0); MEAN CORPUSCULAR HEMOGLOBIN 31.2 pg (27.0-33.0); MEAN CORPUSCULAR HGB CONC 32.4 g/dl (32.0-36.5); MEAN CORPUSCULAR VOLUME 96.5 fl (80.0-96.0); MONO # 0.6 10^3/uL (0.0-0.8); MONO % 12.8 % (2.0-8.0); NEUTROPHILS # 2.8 10^3/uL (1.5-8.5); NEUTROPHILS % 58.1 % (36.0-66.0); PLATELET COUNT, AUTOMATED 197 10^3/uL (150-450); RED BLOOD COUNT 3.17 10^6/uL (4.30-6.10); WHITE BLOOD COUNT 4.8 10^3/uL (4.0-10.0)
[2022-05-27 17:26] LABS: INR 2.84; PROTHROMBIN TIME 30.3 SECONDS (12.5-14.5)
[2022-05-27 17:30] LABS: ALBUMIN 1.9 G/DL (3.2-5.2); ALKALINE PHOSPHATASE 96 U/L (46-116); ALT/SGPT 17 U/L (7.0-40); AST/SGOT 32 U/L (<34); BILIRUBIN,DIRECT 1.3 MG/DL (<0.4); BILIRUBIN,TOTAL 1.9 MG/DL (0.3-1.2); BLOOD UREA NITROGEN 9 MG/DL (9-23); CALCIUM LEVEL 7.2 MG/DL (8.3-10.6); CARBON DIOXIDE LEVEL 28 MMOL/L (20-31); CHLORIDE LEVEL 103 MMOL/L (98-107); CREATININE FOR GFR 0.75 MG/DL (0.70-1.30); GLOMERULAR FILTRATION RATE > 60.0 (>49); GLUCOSE, FASTING 88 MG/DL (74-106); POTASSIUM SERUM 4.1 MMOL/L (3.5-5.1); SODIUM LEVEL 138 MMOL/L (136-145); TOTAL PROTEIN 4.6 G/DL (5.7-8.2)
== END ==
LOC: M WUC 13:33
PROVIDERS: ATTEND Nurse Practitioner Acute Care
DX: K75.81 Nonalcoholic steatohepatitis (NASH) (principal); K74.60 Unspecified cirrhosis of liver

== ENCOUNTER → 2022-07-01 | Outpatient (CLI) | payer MEDICARE, OTHER ==
[2022-07-01 15:13] LABS: BASO # 0.1 10^3/uL (0.0-0.2); BASO % 1.4 % (0.0-1.0); EOS # 0.2 10^3/uL (0.0-0.5); EOS % 6.2 % (0.0-3.0); HEMATOCRIT 23.5 % (42.0-52.0); HEMOGLOBIN 7.5 g/dl (13.5-17.5); LYMPH # 0.7 10^3/uL (1.5-5.0); LYMPH % 19.8 % (24.0-44.0); MEAN CORPUSCULAR HEMOGLOBIN 32.1 pg (27.0-33.0); MEAN CORPUSCULAR HGB CONC 31.9 g/dl (32.0-36.5); MEAN CORPUSCULAR VOLUME 100.4 fl (80.0-96.0); MONO # 0.5 10^3/uL (0.0-0.8); MONO % 13.6 % (2.0-8.0); NEUTROPHILS # 2.2 10^3/uL (1.5-8.5); NEUTROPHILS % 58.7 % (36.0-66.0); RED BLOOD COUNT 2.34 10^6/uL (4.30-6.10); WHITE BLOOD COUNT 3.7 10^3/uL (4.0-10.0)
[2022-07-01 15:32] LABS: INR 2.54; PROTHROMBIN TIME 27.8 SECONDS (12.5-14.5)
[2022-07-01 15:45] LABS: ALBUMIN 3.6 G/DL (3.2-5.2); ALKALINE PHOSPHATASE 71 U/L (46-116); ALT/SGPT 11 U/L (7.0-40); AST/SGOT 31 U/L (<34); BILIRUBIN,TOTAL 2.1 MG/DL (0.3-1.2); BLOOD UREA NITROGEN 16 MG/DL (9-23); CALCIUM LEVEL 8.3 MG/DL (8.3-10.6); CARBON DIOXIDE LEVEL 24 MMOL/L (20-31); CHLORIDE LEVEL 106 MMOL/L (98-107); CREATININE FOR GFR 1.29 MG/DL (0.70-1.30); GLOMERULAR FILTRATION RATE > 60.0 (>49); GLUCOSE, FASTING 79 MG/DL (74-106); POTASSIUM SERUM 4.6 MMOL/L (3.5-5.1); SODIUM LEVEL 141 MMOL/L (136-145); TOTAL PROTEIN 5.5 G/DL (5.7-8.2)
[2022-07-01 15:51] LABS: PLATELET COUNT, AUTOMATED 88 10^3/uL (150-450)
== END ==
LOC: M WUC 11:28
PROVIDERS: ATTEND Nurse Practitioner Acute Care
DX: K75.81 Nonalcoholic steatohepatitis (NASH) (principal); K74.60 Unspecified cirrhosis of liver

== ENCOUNTER → 2022-07-01 | Outpatient (CLI) | payer MEDICARE, OTHER ==
[2022-07-01 15:13] LABS: BASO # 0.1 10^3/uL (0.0-0.2); BASO % 1.8 % (0.0-1.0); EOS # 0.2 10^3/uL (0.0-0.5); HEMATOCRIT 23.3 % (42.0-52.0); HEMOGLOBIN 7.4 g/dl (13.5-17.5); LYMPH # 0.8 10^3/uL (1.5-5.0); LYMPH % 20.5 % (24.0-44.0); MEAN CORPUSCULAR HEMOGLOBIN 31.8 pg (27.0-33.0); MEAN CORPUSCULAR HGB CONC 31.8 g/dl (32.0-36.5); MONO # 0.5 10^3/uL (0.0-0.8); MONO % 13.4 % (2.0-8.0); NEUTROPHILS # 2.2 10^3/uL (1.5-8.5); RED BLOOD COUNT 2.33 10^6/uL (4.30-6.10); WHITE BLOOD COUNT 3.8 10^3/uL (4.0-10.0)
[2022-07-01 15:33] LABS: PLATELET COUNT, AUTOMATED 89 10^3/uL (150-450)
[2022-07-01 15:44] LABS: LIPASE 41 U/L (12-53); MAGNESIUM LEVEL 1.6 MG/DL (1.8-2.4)
[2022-07-01 15:45] LABS: AMYLASE 42 U/L (30-118)
[2022-07-01 15:46] LABS: ALBUMIN 3.6 G/DL (3.2-5.2); ALKALINE PHOSPHATASE 71 U/L (46-116); ALT/SGPT 12 U/L (7.0-40); AST/SGOT 31 U/L (<34); BILIRUBIN,TOTAL 2.1 MG/DL (0.3-1.2); BLOOD UREA NITROGEN 16 MG/DL (9-23); CALCIUM LEVEL 8.3 MG/DL (8.3-10.6); CARBON DIOXIDE LEVEL 24 MMOL/L (20-31); CHLORIDE LEVEL 106 MMOL/L (98-107); CREATININE FOR GFR 1.28 MG/DL (0.70-1.30); GLOMERULAR FILTRATION RATE > 60.0 (>49); GLUCOSE, FASTING 79 MG/DL (74-106); POTASSIUM SERUM 4.5 MMOL/L (3.5-5.1); SODIUM LEVEL 140 MMOL/L (136-145); TOTAL PROTEIN 5.5 G/DL (5.7-8.2)
[2022-07-01 15:47] LABS: CHOLESTEROL LEVEL < 50 MG/DL (<200); CHOLESTEROL RISK RATIO 2.51 (<5); HDL CHOLESTEROL 19.9 MG/DL (>40); LDL CHOLESTEROL 22.49999 MG/DL (<100); NON-HDL-C 30 MG/DL; TRIGLYCERIDES LEVEL 38 MG/DL (<150)
[2022-07-01 15:48] LABS: VITAMIN B12 LEVEL 1376 PG/ML (211-911)
== END ==
LOC: M WUC 11:31
PROVIDERS: ATTEND Family Medicine
DX: R76.8 Other specified abnormal immunological findings in serum (principal); R18.8 Other ascites; K81.9 Cholecystitis, unspecified; K80.10 Calculus of gallbladder with chronic cholecystitis without obstruction; K81.1 Chronic cholecystitis; N62 Hypertrophy of breast; K21.9 Gastro-esophageal reflux disease without esophagitis; K31.84 Gastroparesis; K72.90 Hepatic failure, unspecified without coma; Z98.84 Bariatric surgery status; I10 Essential (primary) hypertension; E88.09 Other disorders of plasma-protein metabolism, not elsewhere classified; E16.2 Hypoglycemia, unspecified; R23.1 Pallor; R92.8 Other abnormal and inconclusive findings on diagnostic imaging of breast; E66.9 Obesity, unspecified; M16.9 Osteoarthritis of hip, unspecified; Z01.818 Encounter for other preprocedural examination; M25.551 Pain in right hip; M25.561 Pain in right knee; K85.90 Acute pancreatitis without necrosis or infection, unspecified; K25.9 Gastric ulcer, unspecified as acute or chronic, without hemorrhage or perforation; J90 Pleural effusion, not elsewhere classified; I26.99 Other pulmonary embolism without acute cor pulmonale; K40.90 Unilateral inguinal hernia, without obstruction or gangrene, not specified as recurrent; G47.30 Sleep apnea, unspecified; Z13.820 Encounter for screening for osteoporosis; I47.1 Supraventricular tachycardia; D69.6 Thrombocytopenia, unspecified